=== PATIENT | female | born 1955 | race Hispanic/Latino ===

== ENCOUNTER 2019-10-07 08:22 | Day surgery (SDC) | payer OTHER ==
[2019-10-04 09:35] LABS: Absolute Lymphocytes (CBC) 2.7 K/uL (0.7-4.9); Basophils % 0.5 % (0-1.3); Hematocrit 37.4 % (36.0-45.0); Lymphocytes % 33.3 % (15.3-44.8); MPV 10.5 fL (7.6-11.3); RBC Red Blood Cell Count 4.09 M/uL (3.86-4.86)
[2019-10-04 09:51] LABS: Potassium 4.2 mmol/L (3.5-5.1)
[~2019-10-07 08:22] MED LIST: HEPARIN 5000 UNIT/ML 1 ML VIAL ONE; LIDOCAINE 1% MPF 30 ML VIAL ONE; NS 0.9% VIAL 20 ML ONE
--- OUTSIDE RECORDS SUMMARY | 2019-10-07 08:24 | XMS REPORT ---
:1955 Author Organization [facility] Address [address] [place] [address] Dr. Smith [address] [place] [id number] Care Team Providers Name Role Phone ARNAV RATLIFF Unavailable Unavailable Problems This patient has no known problems. Allergies, Adverse Reactions, Alerts This patient has no known allergies or adverse reactions. Medications This patient has no known medications. Encounters Start End Encounter Admission Attending Care Care Encounter Date/Time Date/Time Type Type Clinicians Facility Department ID 2019-08-01 2019-08-01 Outpatient [id number] 08:26:00 08:26:00 Results Test Description Test Time Test Comments Text Results Atomic Results Result Comments TISSUE EXAM 2019-08-31 14:46:00 Surgical Pathology Report Case: [id number] Authorizing Provider: Arnav Ratliff MD Collected: 08/21/2019 1712 Ordering Location: [facility] Received: 08/22/2019 1041 SERVICES Pathologist: Khris Morales MD Specimens: A) - Kidney, Left B) - Lymph Node, Retroperitoneal lymph nodes A. 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 LYMPH NODE, RETROPERITONEAL, DISSECTION: - ELEVEN LYMPH NODES, NEGATIVE FOR METASTATIC CARCINOMA (0/11) Signing Pathologist Direct Phone Line: [phone] signed by Khris Morales MD on 08/31/2019 at 2:46 PMA. By immunohistochemistry, the tumor cells are patchily positive for CK7, CD10 and AMACR. The findings are not entirely specific. With the morphology, the overall features are most compatible with clear cell type. The majority of the tumor cells are nuclear grade 2, while very focally the tumor cells show features of nuclear grade 3. KIDNEY: Nephrectomy (Kidney Res - All Specimens)SPECIMEN Procedure: Radical nephrectomy Specimen Laterality: Left TUMOR Tumor Site: Upper pole Tumor Site: Middle Histologic Type: Clear cell renal cell carcinoma Histologic Grade (WHO / ISUP Grade): G3: Nucleoli conspicuous and eosinophilic at 100x magnification Tumor Size: Greatest dimension in Centimeters (cm): 9.1 Centimeters (cm) Additional Dimension in Centimeters (cm): 8.3 Centimeters (cm) Additional Dimension in Centimeters (cm): 8 Centimeters (cm) Tumor Focality: Unifocal Tumor Extent: Tumor Extension: Tumor limited to kidney Accessory Findings: Sarcomatoid Features: Not identified Rhabdoid Features: Not identified Tumor Necrosis: Not identified Lymphovascular Invasion: Not identified MARGINS Margins: Uninvolved by invasive carcinoma LYMPH NODES Number of Lymph Nodes Involved: 0 Number of Lymph Nodes Examined: 11 PATHOLOGIC STAGE CLASSIFICATION (pTNM, AJCC 8th Edition) TNM Descriptors: Not applicable Primary Tumor (pT): pT2a Regional Lymph Nodes (pN): pN0 ADDITIONAL FINDINGS Pathologic Findings in Nonneoplastic Kidney: None identified [id number] X 2, 06381, 73187 X 2Left renal mass A. Kidney, left. B. Retroperitoneal lymph nodeA. Received fresh labeled with the patient's name, accession number and "kidney, left" is a 619 gm, 18 x 8.5 x 8.5 cm radical nephrectomy with a moderate amount of attached perinephric fat. An adrenal gland is not present. The kidney measures 14 x 8 x 8.3 cm. There is an attached unremarkable ureter measuring 10.5 cm in length and 0.3 cm in diameter.The kidney is opened to reveal a well-circumscribed, heterogenous, huddleston-yellow, johnson, partially hemorrhagic and necrotic mass in the upper to mid pole measuring 9.1 x 8.3 x 8 cm. The mass abuts the kidney capsule and vein, but it does not invade through either one. The mass abuts the renal sinuS, but it does not invade through it. The remaining parenchyma is red-brown and smooth. The corticomedullary junction is well demarcated. Lymph nodes are not present in the hilum. Assistant Branch Operations Manager sections are submitted.Ink code: Blue-outer surface of kidneySection code:A1, ureter and vascular margins, en faceA2-A3, mass to kidney capsule and perinephric fatA4, mass to veinA5-A7, mass to renal sinusA8, mass to hilumA9, hvac sales representative of mass with scarred area, mid lobeA10, mass to uninvolved parenchyma, mid nzekB72-U60, uninvolved parenchyma B. Received fresh labeled with the patient's name, accession number and "retroperitoneal lymph nodes" is a 3.5 x 2.5 x 1.5 cm aggregate of multiple irregular, johnson-yellow, adipose tissue fragments. The specimen is sectioned to reveal multiple pink lymph nodes ranging from 0.2-0.9 cm. The specimen is entirely submitted.Section code:B1-B4, one possible lymph node in each cassetteB5, five possible intact lymph nodesB6-B8, remainder of specimenCG/ewThe interpretation of this case included the use of immunohistochemistry or special stains.Please see the immunohistochemistry results in the COMMENT section. Control Slides Examined: In-house known positive controls were evaluated along with the test tissue. These control slides run alongside of the patients sample show appropriate staining. Internal positive and negative controls when available are evaluated Immunohistochemistry technical testing was performed at [facility], Pathology Laboratory where it was developed and its performance characteristics were determined. It has not been cleared or approved by the U.S. Food and Drug Administration. The FDA has determined that such clearance or approval is not necessary. The test is used for clinical purposes. It should not be regarded as investigational or for research. This laboratory is certified under the Clinical Laboratory Improvement Amendments of 1988 (CLIA-88) as qualified to perform high complexity clinical laboratory testing. HEMOGLOBIN AND HEMATOCRIT 2019-08-23 13:13:00 Test Item Value Reference Range Comments HEMOGLOBIN (BEAKER) (test bdsc=405) 10.6 GM/DL 11.2-15.7 HEMATOCRIT (BEAKER) (test fngm=542) 33.8 % 34.1-44.9 BASIC METABOLIC [id number] 07:54:00 Test Item Value Reference Range Comments SODIUM (BEAKER) (test 134 meq/L 136-145 tglb=740) POTASSIUM (BEAKER) (test 4.4 meq/L 3.5-5.1 ewvy=335) CHLORIDE (BEAKER) (test 106 meq/L 98-107 zhno=105) CO2 (BEAKER) (test 23 meq/L 22-29 ouhn=900) BLOOD UREA NITROGEN 16 mg/dL 7-21 (BEAKER) (test wuxx=728) CREATININE (BEAKER) (test 0.90 mg/dL 0.57-1.25 cntv=547) GLUCOSE RANDOM (BEAKER) 100 mg/dL 70-105 (test utbj=514) CALCIUM (BEAKER) (test 8.3 mg/dL 8.4-10.2 squh=295) EGFR (BEAKER) (test 63 mL/min/1.73 sq m ESTIMATED GFR IS NOT lyre=7684) ACCURATE CREATININE CLEARANCE IN PREDICTING GLOMERULAR FILTRATION RATE. ESTIMATED GFR IS NOT APPLICABLE FOR DIALYSIS PATIENTS. HEMOGLOBIN AND [id number] 07:37:00 Test Item Value Reference Range Comments HEMOGLOBIN (BEAKER) (test rzcf=352) 10.6 GM/DL 11.2-15.7 HEMATOCRIT (BEAKER) (test qcaw=812) 33.5 % 34.1-44.9 BASIC METABOLIC [id number] 05:55:00 Test Item Value Reference Range Comments SODIUM (BEAKER) (test 138 meq/L 136-145 kxoh=303) POTASSIUM (BEAKER) (test 4.3 meq/L 3.5-5.1 ipqp=219) CHLORIDE (BEAKER) (test 109 meq/L 98-107 tlly=898) CO2 (BEAKER) (test 25 meq/L 22-29 rape=182) BLOOD UREA NITROGEN 14 mg/dL 7-21 (BEAKER) (test jtkv=032) CREATININE (BEAKER) (test 0.84 mg/dL 0.57-1.25 atbc=803) GLUCOSE RANDOM (BEAKER) 113 mg/dL 70-105 (test wxwc=614) CALCIUM (BEAKER) (test 8.8 mg/dL 8.4-10.2 virc=755) EGFR (BEAKER) (test 68 mL/min/1.73 sq m ESTIMATED GFR IS NOT hgrg=8085) ACCURATE CREATININE CLEARANCE IN PREDICTING GLOMERULAR FILTRATION RATE. ESTIMATED GFR IS NOT APPLICABLE FOR DIALYSIS PATIENTS. HEMOGLOBIN AND [id number] 05:36:00 Test Item Value Reference Range Comments HEMOGLOBIN (BEAKER) (test cqbd=386) 11.6 GM/DL 11.2-15.7 HEMATOCRIT (BEAKER) (test uxto=638) 36.6 % 34.1-44.9 BASIC METABOLIC [id number] 19:19:00 Test Item Value Reference Range Comments SODIUM (BEAKER) (test 140 meq/L 136-145 wjax=725) POTASSIUM (BEAKER) (test 4.0 meq/L 3.5-5.1 Specimen slightly nuit=146) hemolyzed CHLORIDE (BEAKER) (test 109 meq/L 98-107 wskk=177) CO2 (BEAKER) (test 25 meq/L 22-29 dwtl=866) BLOOD UREA NITROGEN 13 mg/dL 7-21 (BEAKER) (test moxc=423) CREATININE (BEAKER) (test 0.82 mg/dL 0.57-1.25 Specimen slightly dukt=984) hemolyzed GLUCOSE RANDOM (BEAKER) 164 mg/dL 70-105 (test fnme=955) CALCIUM (BEAKER) (test 9.1 mg/dL 8.4-10.2 lmuj=233) EGFR (BEAKER) (test 70 mL/min/1.73 sq m ESTIMATED GFR IS NOT dadp=2044) ACCURATE CREATININE CLEARANCE IN PREDICTING GLOMERULAR FILTRATION RATE. ESTIMATED GFR IS NOT APPLICABLE FOR DIALYSIS PATIENTS. HEMOGLOBIN AND [id number] 18:50:00 Test Item Value Reference Range Comments HEMOGLOBIN (BEAKER) (test ptgi=432) 12.8 GM/DL 11.2-15.7 HEMATOCRIT (BEAKER) (test xihe=975) 39.8 % 34.1-44.9 URINE [id number] 09:25:00 Test Item Value Reference Range Comments CULTURE (BEAKER) (test 80-89,000 col/mL skin david pbbu=6115) PROTHROMBIN TIME/[id number] 17:15:00 Test Item Value Reference Range Comments PROTIME (BEAKER) (test akyb=384) 13.0 seconds 11.9-14.2 INR (BEAKER) (test lkwm=888) 1.0 <=5.9 Effective 02/13/2019: PT Reference Range ChangeNew: 11.9-14.2 Previous: 11.7- 14.7RECOMMENDED COUMADIN/WARFARIN INR THERAPY RANGESSTANDARD DOSE: 2.0-3.0 Includes: PROPHYLAXIS for venous thrombosis, systemic embolization; TREATMENT for venous thrombosis and/or pulmonary embolus.HIGH RISK: Target INR is2.5-3.5 for patients wiht mechanical heart valves.[id number] 17:15:00 Test Item Value Reference Range Comments PARTIAL THROMBOPLASTIN TIME (BEAKER) (test 27.7 seconds 22.5-36.0 cqui=068) BASIC METABOLIC [id number] 17:04:00 Test Item Value Reference Range Comments SODIUM (BEAKER) (test 139 meq/L 136-145 lzir=790) POTASSIUM (BEAKER) (test 3.8 meq/L 3.5-5.1 askt=981) CHLORIDE (BEAKER) (test 105 meq/L 98-107 cywr=875) CO2 (BEAKER) (test 30 meq/L 22-29 jkiw=365) BLOOD UREA NITROGEN 12 mg/dL 7-21 (BEAKER) (test tatr=396) CREATININE (BEAKER) (test 0.69 mg/dL 0.57-1.25 dhyc=371) GLUCOSE RANDOM (BEAKER) 96 mg/dL 70-105 (test jvhw=913) CALCIUM (BEAKER) (test 10.0 mg/dL 8.4-10.2 vhuy=824) EGFR (BEAKER) (test 85 mL/min/1.73 sq m ESTIMATED GFR IS NOT gaen=8480) ACCURATE CREATININE CLEARANCE IN PREDICTING GLOMERULAR FILTRATION RATE. ESTIMATED GFR IS NOT APPLICABLE FOR DIALYSIS PATIENTS. URINALYSIS W/ [id number] 16:35:00 Test Item Value Reference Range Comments COLOR (BEAKER) (test ettu=954) Yellow CLARITY (BEAKER) (test tayn=902) Clear SPECIFIC GRAVITY UA (BEAKER) (test rjwu=102) 1.027 1.001-1.035 PH UA (BEAKER) (test uazx=241) 7.0 5.0-8.0 PROTEIN UA (BEAKER) (test kpdi=499) 10 mg/dL Negative GLUCOSE UA (BEAKER) (test ehzg=176) Negative Negative KETONES UA (BEAKER) (test ymeo=614) Trace Negative BILIRUBIN UA (BEAKER) (test qfmv=763) Negative Negative BLOOD UA (BEAKER) (test ohtt=667) Negative Negative NITRITE UA (BEAKER) (test rukr=542) Negative Negative LEUKOCYTE ESTERASE UA (BEAKER) (test uufx=686) Negative Negative UROBILINOGEN UA (BEAKER) (test ewuj=615) 6.0 mg/dL 0.2-1.0 RBC UA (BEAKER) (test dtyg=059) 1 /HPF WBC UA (BEAKER) (test pwat=452) 1 /HPF BACTERIA (BEAKER) (test kmbe=675) Rare MUCUS (BEAKER) (test eddm=2071) Rare SQUAMOUS EPITHELIAL (BEAKER) (test wrfz=539) 2 /HPF CALCIUM OXALATE CRYSTALS (BEAKER) (test yrqa=089) Many SOURCE(BEAKER) (test umbe=9241) CBC W/PLT COUNT & AUTO [id number] 16:33:00 Test Item Value Reference Range Comments WHITE BLOOD CELL COUNT (BEAKER) (test kolg=723) 10.0 K/ L 3.5-10.5 RED BLOOD CELL COUNT (BEAKER) (test pjyk=230) 4.18 M/ L 3.93-5.22 HEMOGLOBIN (BEAKER) (test jrkx=270) 12.8 GM/DL 11.2-15.7 HEMATOCRIT (BEAKER) (test vkpz=802) 39.3 % 34.1-44.9 MEAN CORPUSCULAR VOLUME (BEAKER) (test wzxu=473) 94.0 fL 79.4-94.8 MEAN CORPUSCULAR HEMOGLOBIN (BEAKER) (test 30.6 pg 25.6-32.2 qgno=729) MEAN CORPUSCULAR HEMOGLOBIN CONC (BEAKER) (test 32.6 GM/DL 32.2-35.5 rwbm=049) RED CELL DISTRIBUTION WIDTH (BEAKER) (test 12.7 % 11.7-14.4 saze=789) PLATELET COUNT (BEAKER) (test moux=530) 224 K/CU MM 150-450 MEAN PLATELET VOLUME (BEAKER) (test tdcm=389) 11.5 fL 9.4-12.3 NUCLEATED RED BLOOD CELLS (BEAKER) (test 0 /100 WBC 0-0 fkdm=189) NEUTROPHILS RELATIVE PERCENT (BEAKER) (test 52 % gpzs=010) LYMPHOCYTES RELATIVE PERCENT (BEAKER) (test 36 % wtxq=377) MONOCYTES RELATIVE PERCENT (BEAKER) (test 9 % yvng=027) EOSINOPHILS RELATIVE PERCENT (BEAKER) (test 3 % auky=574) BASOPHILS RELATIVE PERCENT (BEAKER) (test 1 % tyal=486) NEUTROPHILS ABSOLUTE COUNT (BEAKER) (test 5.20 K/ L 1.56-6.13 antt=731) LYMPHOCYTES ABSOLUTE COUNT (BEAKER) (test 3.56 K/ L 1.18-3.74 gkeb=482) MONOCYTES ABSOLUTE COUNT (BEAKER) (test 0.91 K/ L 0.24-0.36 aomh=076) EOSINOPHILS ABSOLUTE COUNT (BEAKER) (test 0.26 K/ L 0.04-0.36 vycz=297) BASOPHILS ABSOLUTE COUNT (BEAKER) (test 0.05 K/ L 0.01-0.08 ddga=517) IMMATURE GRANULOCYTES-RELATIVE PERCENT (BEAKER) 0 % 0-1 (test wjvk=1869) BREAST ULTRASOUND CORE BIOPSY [id number] 16:30:01- BREAST ULTRASOUND CORE BIOPSY RIGHTULTRASOUND GUIDED BIOPSY RIGHT BREAST WITH MARKING DEVICE INSERTED AND POST DIGITAL MAMMOGRAPHIC AND ULTRASOUND IMAGIN06/19/2019CLINICAL: The 3.9 cm mass in the right breast at 1-2 o'clock, 1 cm from the nipple is highly suggestive of malignancy. An ultrasound-guided biopsy is recommended.The right axillary lymph node with a thickened cortex is suspicious for malignancy. An ultrasound-guided biopsy is recommended. PATIENT CONSENT: The procedure along with risks, benefits, alternatives, anesthesia, plan and tissue marker placement were discussed with the patient. Following this, signed, witnessed informed concent was obtained. Comparison is made to exam dated 05/21/2019 ultrasound - [facility]-. An ultrasound guided biopsy using real -time ultrasound was performed for the concerning palpable spiculated irregular shaped mass located in the right breast at 1 o'clock, anterior depth, 1 cm from the nipple. This was described on the previous mammography and ultrasound reports. The skin was prepped in the usual manner. Local anesthetic was administered to the access site. A small incision was made in the breast. The abnormality was approached from the lateral aspect. A 14 gauge biopsy needle was placed adjacent to the abnormality through an introducer device under ultrasound guidance. Once the needle was documented to be in the correct location, three specimens were obtained using a BARD biopsy device. A ribbon clip was inserted into the biopsy cavity. Post procedure digital mammographic and ultrasound imaging was obtained. The specimens were sent to the laboratory for pathological analysis. IMPRESSION: ULTRASOUND GUIDED BIOPSYMALIGNANT Ultrasound guided biopsy of the mass in the right breast at 1 o'clock, anterior depth 1 cmfrom the nipple, was successful. PATHOLOGY INDICATES:Malignant invasive ductal carcinoma (ID) grade2. RECOMMENDATION:Pathology results are concordant with imaging findings. A surgical consult, a breast MRI, and a chemo oncology consultation are recommended. Sandra Jimenez M.D. cc/:06/25/2019 16:30:01 Entry: - 06/26/2019 08:21:12Imaging Technologist: Charlee Webber, [facility]-RGDIAG MAMM RIGHT CAD [id number] 09:46: 33 - DIAG MAMM RIGHT CAD DIGITALUNILATERAL RIGHT DIGITAL DIAGNOSTIC MAMMOGRAM WITH CAD - RIGHT BREAST POST-PROCEDURE IMAGING FOR MARKER PLACEMENT: 2018CLINICAL: Post clip placement. Current mammographic images were evaluated by either a [employer]u or an DGIT version 7.2 computer aided detection system. Comparison is made to exams dated 06/19/2019 ultrasound, 06/19/2019 ultrasound biopsy, 06/19/2019 ultrasound biopsy, 05/21/2019 ultrasound, and 05/21/2019 mammogram - [facility]-. There are scattered fibroglandular tissues in the right breast. There is a ribbon marker clip in the appropriate position in the right breast at 1 o'clock, anterior depth, 1 cm from the nipple. This marker clip placement is at biopsy site. There also is a heart marker clip in the appropriate position in the right axilla. This marker clip placement is at biopsy site. IMPRESSION: POST PROCEDURE IMAGING FOR MARKER PLACEMENTThere was successful marking clip placement in the right breast at 1 o' clock, anterior depth. There was successful marking clip placement in the right axilla. Sandra Jimenez M.D. cc/:06/19/2019 09:46:33 Screen Printing Machine Operator: Dionne ESCALANTE, [facility]-RGMammogram BI-RADS: Post-procedure mammogram for marker placementBREAST ULTRASOUND [id number] 15:44:10 - DIAG MAMM BILATERAL SUSAN CAD DIGITALBILATERAL DIGITAL DIAGNOSTIC MAMMOGRAM 3D/2D WITH CAD: 05/21/2019CLINICAL: Palpable Lump and nipple abnormality right breast. Digital breast tomosynthesis was performed in addition to routine CC and MLO views. Current mammographic images were evaluated by either a [employer] M-Vu or an Achie[employer]D version 7.2 computer aided detection system. No prior exams were available for comparison. There are scattered fibroglandular tissues in both breasts. An approximately 4.6 x 3.7 x 2.7 cm oval high density mass with spiculated margin is noted in the subareolar region of theright breast. This mass abuts the skin which is thickened and results in nipple and skin retraction. Finding calcifications are noted within the mass. No other suspicious mass, architectural distortion, malignant type calcification, or lymph node abnormality detected. INCOMPLETE ASSESSMENT: ADDITIONAL IMAGING EVALUATION RECOMMENDEDFurther evaluation is pending; breast ultrasound to be performed today. - BREAST ULTRASOUND BILATERALULTRASOUND OF BOTH BREASTS AND BOTH AXILLA: 05/21/2019No prior exams were available for comparison. Real-time ultrasound of both breasts and both axilla was performed. A 3.3 x 3.9 x 2.5 cm hypoechoic mass with angular and spiculated margin is noted in the right breast at 1-2 o'clock, 1 cm from the nipple in the area of palpable concern. This mass abuts the skin of the breast, areola and nipple which is thickened, and demonstrates clinical erythema and scaling. Increased vascularity affects the mass.A right axillary lymph node with a thickened cortex measuring upto 5 mm is noted. No other abnormalities were seen sonographically in either breast or either axilla. IMPRESSION: HIGHLY SUGGESTIVE OF MALIGNANCY - FOLLOW-UP RECOMMENDEDThe 3.9 cm mass in the right breast at 1-2 o'clock, 1 cm from the nipple is highly suggestive of malignancy. An ultrasound-guided biopsy is recommended.The right axillary lymph node with a thickened cortex is suspicious for malignancy. An ultrasound-guided biopsy is recommended.Sandra Jimenez M.D. cc/:05/21/2019 15:44:10 Entry: cc - 05/22/2019 08:27:22Imaging Technologist: Kayden ESCALANTE, [facility]- RGletter sent: BIRADS 4/5 Biopsy Mammogram BI-RADS: 0 Indeterminate Ultrasound BI-RADS: 5 Highly suggestive of malignancyDIAG MAMM BILATERAL SUSAN CAD [id number] 15:44:10 - DIAG MAMM BILATERAL SUSAN CAD DIGITALBILATERAL DIGITAL DIAGNOSTIC MAMMOGRAM 3D/2D WITH CAD: 05/21/2019CLINICAL: Palpable Lump and nipple abnormality right breast. Digital breast tomosynthesis was performed in addition to routine CC and MLO views. Current mammographic images were evaluated by either a [employer] or an DGIT version 7.2 computer aided detection system. No prior exams were available for comparison. There are scattered fibroglandular tissues in both breasts. An approximately 4.6 x 3.7 x 2.7 cm oval high density mass with spiculated margin is noted in the subareolar region of theright breast. This mass abuts the skin which is thickened and results in nipple and skin retraction. Finding calcifications are noted within the mass. No other suspicious mass, architectural distortion, malignant type calcification, or lymph node abnormality detected. INCOMPLETE ASSESSMENT: ADDITIONAL IMAGING EVALUATION RECOMMENDEDFurther evaluation is pending; breast ultrasound to be performed today. - BREAST ULTRASOUND BILATERALULTRASOUND OF BOTH BREASTS AND BOTH AXILLA: 05/21/2019No prior exams were available for comparison. Real-time ultrasound of both breasts and both axilla was performed. A 3.3 x 3.9 x 2.5 cm hypoechoic mass with angular and spiculated margin is noted in the right breast at 1-2 o'clock, 1 cm from the nipple in the area of palpable concern. This mass abuts the skin of the breast, areola and nipple which is thickened, and demonstrates clinical erythema and scaling. Increased vascularity affects the mass.A right axillary lymph node with a thickened cortex measuring upto 5 mm is noted. No other abnormalities were seen sonographically in either breast or either axilla. IMPRESSION: HIGHLY SUGGESTIVE OF MALIGNANCY - FOLLOW-UP RECOMMENDEDThe 3.9 cm mass in the right breast at 1-2 o'clock, 1 cm from the nipple is highly suggestive of malignancy. An ultrasound-guided biopsy is recommended.The right axillary lymph node with a thickened cortex is suspicious for malignancy. An ultrasound-guided biopsy is recommended.Sandra Jimenez M.D. cc/:05/21/2019 15:44:10 Entry: cc - 05/22/2019 08:27:22Imaging Technologist: Kayden ESCALANTE, [facility]- letter sent: BIRADS 4/5 Biopsy Mammogram BI-RADS: 0 Indeterminate Ultrasound BI-RADS: 5 Highly suggestive of malignancy
[2019-10-07] MEDS ORDERED: CEFAZOLIN/SWI 1gm 1 GM/10 ML SYR ONE (08:41)
[2019-10-07] MEDS ORDERED: Ringers Lactate 1,000 ML IV ONE (08:41)
[2019-10-07] MEDS ORDERED: FENTANYL CITR 100 MCG/2 ML ONE (09:26)
[2019-10-07] MEDS ORDERED: propofoL 200 MG/20 ML VIAL IV ONE (09:26)
[2019-10-07] MEDS ORDERED: LIDOCAINE 2% MPF 5 ML VIAL ONE (09:27)
[2019-10-07 10:11] VITALS: O2SAT 100
--- NOTE | 2019-10-07 10:19 | RAD REPORT ---
EXAM DESCRIPTION: RAD - Chest Single View - 10/07/2019 10:07 am CLINICAL HISTORY: POST PORT A CATH INSERTION Chest pain. COMPARISON: No comparisons FINDINGS: Portable technique limits examination quality. Left-sided venous catheter has been placed with tip in the SVC. No pneumothorax. The heart is upper l imit of normal size. No displaced fractures. IMPRESSION: No postprocedure pneumothorax.
[2019-10-07] MEDS ORDERED: MORPHINE 4 MG/ML SYR ONE (10:21)
[2019-10-07] MEDS ORDERED: ONDANSETRON 4 MG/2 ML VIAL ONE (10:21)
[2019-10-07] MEDS ORDERED: HYDROCODONE/APAP 7.5/325 MG TAB ONE (10:56)
--- NOTE | 2019-10-07 12:53 | OP ---
Date of Procedure: 10/07/2019 Surgeon: Beto Birch MD Preoperative Diagnosis: Right breast cancer. Postoperative Diagnosis: Right breast cancer. Procedure: Placement of left IJ Port-A-Cath and interpretation of intraoperative fluoroscopy. Estimated Blood Loss: Minimal. Specimens: None. Findings: Normal anatomy. Anesthesia: General. Complications: None. Disposition: Patient tolerated the procedure in stable condition, taken to Recovery in good general condition. Procedure In Detail: Patient was brought to the OR and placed in supine position. General anesthesi a was begun. Patient was prepped and draped in usual sterile fashion. Lidocaine 1% was infiltrated locally. 18-gauge needle was used to access the left IJ vein. Guidewire was passed. Position was c onfirmed with fluoroscopy. A 3 cm counter incision was made on the left anterior chest below the cla vicle. Subcutaneous tissue was divided. Pocket was created. Tunneling device was used to tunnel th e catheter between the 2 wounds. Seldinger technique was used. Tip of the catheter was placed in th e SVC under fluoroscopy, cut to appropriate size and attached to the Port-A-Cath device. Port-A-Cath device was attached to the subcutaneous tissue with 3-0 Vicryl and then the Port-A-Cath device flush ed with heparin and packed with heparin with good blood flow return. Then, subsequent 3-0 chromic wa s used for subcutaneous tissue and closed the skin. Sterile dressing was applied. Patient was awakened and taken to Recovery in go od general condition. /MODL Voice ID: [id number] Report ID: [id number]
--- NOTE | 2019-10-07 13:17 | DS ---
Patient will have a chest x-ray. If okay, patient will be discharged to home. Disposition: Home. Condition: Stable. Discharge Instructions: Resume home medications and diet. Activity as tolerated. No heavy lifting. Remove outer dressing in 2 days. Shower. Keep wound clean and dry. Follow up in my office in 2 w eeks. Call for appointment. Follow up with Dr. Blake[facility]. Call for appointment . Tylenol No. 3, one tablet p.o. q.4 p.r.n. pain. /MODL Voice ID: [id number] Report ID: [id number]
[2019-10-07 14:09] VITALS: TEMP 97.8
[2019-10-07 14:12] VITALS: BP 123/62
--- NOTE | 2019-10-07 14:28 | RAD REPORT ---
EXAM DESCRIPTION: RAD - Fluoroscopy <1 Hour - 10/07/2019 9:48 am CLINICAL HISTORY: Venous catheter insertion. PORT-A-CATH PLACEMENT COMPARISON: No comparisons FINDINGS: Fluoroscopic imaging is submitted from placement of a venous catheter. Details of the pro cedure not available. Fluoroscopy time: 0.5 minutes
== END 2019-10-07 11:45 | disposition home or self-care (01) ==
LOC: OR 08:22
PROVIDERS: ATTEND Surgery
PROC: 0JH60WZ Insertion of Totally Implantable Vascular Access Device into Chest Subcutaneous Tissue and Fascia, Open Approach (ICD-10-PCS; principal; 2019-10-07 09:30)
DX: C50.911 Malignant neoplasm of unspecified site of right female breast (principal); Z85.528 Personal history of other malignant neoplasm of kidney; Z90.5 Acquired absence of kidney
CPT/HCPCS: 36561; 85025; 80048; 36415; 71045; J2704; J1644 ×2; J3010; J0690; J7120; J2405; C1788; 76000

== ENCOUNTER 2020-01-09 19:27 | Inpatient (IN) | payer OTHER ==
--- OUTSIDE RECORDS SUMMARY | 2020-01-09 20:53 | XMS REPORT ---
:1955 Author Organization [facility] t Address [address] [place] [address] [address]. [address] [place] [address] Care Team Providers Name Role Phone TELMA RATLIFF Unavailable Unavailable Problems This patient has [...] Comments TISSUE EXAM 2019-08-31 14:46:00 Surgical Pathology Re port Case: [id number] Authorizing Provider: Alfredito Ratliff MD Collected: 1712 Ordering Location: [facility] Received: 1041 SERVICE S Pathologist: Thelma Morales MD Specimens: A) - Kidney, Le ft B) - Lymph Node, Retroperitoneal lymph nodes A. KIDNEY, LEFT, RADICAL NEPHRE CTOMY: - RENAL CELL CARCINOMA, CLEAR CELL T YPE, WHO/ISUP NUCLEAR GRADE 3 OF 4, 9.1 CM IN GREATEST DIMENSION, LIMITED TO KIDNEY (SEE COMMENT) - NEGATIVE FOR LYMPHOVASCULAR INVASION - SURGICAL RESECTION MARGINS, NEGATIVE FOR TUMOR - AJCC CLASSIFICATION (8TH EDITION) pT2a, N0, Mx (SEE SYNOPTIC REPORT)B. L YMPH NODE, RETROPERITONEAL, DISSECTION: - ELEVEN LYMPH NODES, NEGATIVE FOR METASTAT IC CARCINOMA (0/11) Signing Pathologist Courtney t Phone Line: [phone] s igned by Khris Morales MD on 08/31/2019 at 2:46 PM A. By immunohistochemistry, the tu mor cells are patchily positive for CK7, C D10 and AMACR. The findings are not entirely sp ecific. With the morphology, the overall feat ures are most compatible with clear cell t ype. The majority of the tumor cells are nuclear grade 2, while very focally the tumor cells show features of nuclear grade 3. KIDNEY: Nephrectomy (Kidney Res - All Specimens)SPECIMEN Procedu re: Radical nephrectomy Specimen Late rality: Left TUMOR Tumor Site: Upper pole Tumor Site: Middle Histologic Type: Clear cell renal cell carcinoma Histologic Grade (WHO / ISUP Grade): G3: Nucleoli cons picuous and eosinophilic at 100x magnifi cation Tumor Size: Greatest dimension in Rosa M timeters (cm): 9.1 Centimeters (cm) Additio nal Dimension in Centimeters (cm): 8.3 Rosa M timeters (cm) Additional Dimension in Cent imeters (cm): 8 Centimeters (cm) Tumor Foc ality: Unifocal Tumor Extent: Tumor Extension: Tumor limited to kidney Accesso ry Findings: Sarcomatoid Features: Not identified Rhabdoid Features: Not id entified Tumor Necrosis: Not identified Lymphovascular Invasion: Not identified MARGINS Margins: Uninvolved by invasive carci noma LYMPH NODES Number of Lymph Nodes Involv ed: 0 Number of Lymph Nodes Examined: 11 PATHOLOGIC STAGE CLASSIFICATION (pTNM, AJCC 8 th Edition) TNM Descriptors: Not applicab le Primary Tumor (pT): pT2a [facility] Ly mph Nodes (pN): pN0 ADDITIONAL FINDINGS Pa thologic Findings in Nonneoplastic Kidney: Non e identified [id number] X 2, 56419, 42493 X 2Left demarco l mass A. Kidney, left. B. Retroperitoneal lym ph nodeA. Received fresh labeled with the patie nt's name, accession number and "kidney, left" is a 619 gm, 18 x 8.5 x 8.5 cm radical nephrectomy w ith a moderate amount of attached perinephric fat. An adrenal gland is not present. The kidney shaheed ures 14 x 8 x 8.3 cm. There is an attached unremar kable ureter measuring 10.5 cm in length and 0.3 cm in diameter.The kidney is opene d to reveal a well-circumscribed, heteroge nous, huddleston-yellow, johnson, partially hemorrhagic a nd necrotic mass in the upper to mid pole measur ing 9.1 x 8.3 x 8 cm. The mass abuts the kidney ca psule and vein, but it does not invade through e ither one. The mass abuts the renal sinuS, but i t does not invade through it. The remaining pa renchyma is red-brown and smooth. The corticomedul lizzeth junction is well demarcated. Lymph nodes are not present in the hilum. Education Paraprofessional sectio ns are submitted.Ink code: Blue-outer surface of kidneySection code:A1, ureter and vascular margins, en faceA2-A3, mass to kidney ca psule and perinephric fatA4, mass to veinA5-A7, ma ss to renal sinusA8, mass to hilumA9, representat brielle of mass with scarred area, mid lobeA10, m ass to uninvolved parenchyma, mid pvnxF67-Z11, uninvolved parenchyma B. Received fresh labeled with the patient's name, accession nu mber and "retroperitoneal lymph nodes " is a 3.5 x 2.5 x 1.5 cm aggregate of multiple irregular, johnson-yellow, adipose tissue f ragments. The specimen is sectioned to rev eal multiple pink lymph nodes ranging from 0.2 -0.9 cm. The specimen is entirely submitted.Sectio n code:B1-B4, one possible lymph node in each cassetteB5, five possible intact lymph nodesB 6-B8, remainder of specimenCG/ewThe interpretat ion of this case included the use of immunohi stochemistry or special stains.Please see th e immunohistochemistry results in the COMMENT section. Control Slides Exam ined: In-house known positive controls were evalu ated along with the test tissue. These control slides run alongside of the patients sample show appropriate staining. Internal positive and negati ve controls when available are evaluated Immu nohistochemistry technical testing was perfor med at [facility] Patho logy Laboratory where it was developed and its per formance characteristics were determi pati. It has not been cleared or approved by the U .S. Food and Drug Administration. The FDA has determined that such clearance or approval is not necessary. The test is used for clinical purpose s. It should not be regarded as investigational or for research. This laboratory is certified unde r the Clinical Laboratory Improvement Amend ments of 1988 (CLIA-88) as qualified to pe rform high complexity clinical laboratory testing. HEMOGLOBIN AND HEMATOCRIT 2019-08-23 13:13:00 Test Item Value Reference Range Comments HEMOGLOBIN (BEAKER) (test code = 410) 10.6 GM/DL 11.2-15.7 HEMATOCRIT (BEAKER) (test code = 411) 33.8 % 34.1-44.9 BASIC METABOLIC [id number] 07:54:00 Test Item Value Reference Range Comments SODIUM (BEAKER) (test 134 meq/L 136-145 code = 381) POTASSIUM (BEAKER) (test 4.4 meq/L 3.5-5.1 code = 379) CHLORIDE (BEAKER) (test 106 meq/L 98-107 code = 382) CO2 (BEAKER) (test code = 23 meq/L 22-29 355) BLOOD UREA NITROGEN 16 mg/dL 7-21 (BEAKER) (test code = 354) CREATININE (BEAKER) (test 0.90 mg/dL 0.57-1.25 code = 358) GLUCOSE RANDOM (BEAKER) 100 mg/dL 70-105 (test code = 652) CALCIUM (BEAKER) (test 8.3 mg/dL 8.4-10.2 code = 697) EGFR (BEAKER) (test code 63 mL/min/1.73 sq m EST IMATED GFR IS NOT = 1092) ACCURATE CREA TININE CLEARANCE IN PRE DICTING GLOMERULAR FILTR ATION RATE. ESTIMATED GFR IS NOT APPLICABLE F OR DIALYSIS PATIENT S. HEMOGLOBIN AND [id number] 07:37:00 Test Item Value Reference Range Comments HEMOGLOBIN (BEAKER) (test code = 410) 10.6 GM/DL 11.2-15.7 HEMATOCRIT (BEAKER) (test code = 411) 33.5 % 34.1-44.9 BASIC METABOLIC [id number] 05:55:00 Test Item Value Reference Range Comments SODIUM (BEAKER) (test 138 meq/L 136-145 code = 381) POTASSIUM (BEAKER) (test 4.3 meq/L 3.5-5.1 code = 379) CHLORIDE (BEAKER) (test 109 meq/L 98-107 code = 382) CO2 (BEAKER) (test code = 25 meq/L 22-29 355) BLOOD UREA NITROGEN 14 mg/dL 7-21 (BEAKER) (test code = 354) CREATININE (BEAKER) (test 0.84 mg/dL 0.57-1.25 code = 358) GLUCOSE RANDOM (BEAKER) 113 mg/dL 70-105 (test code = 652) CALCIUM (BEAKER) (test 8.8 mg/dL 8.4-10.2 code = 697) EGFR (BEAKER) (test code 68 mL/min/1.73 sq m EST IMATED GFR IS NOT = 1092) ACCURATE CREA TININE CLEARANCE IN PRE DICTING GLOMERULAR FILTR ATION RATE. ESTIMATED GFR IS NOT APPLICABLE F OR DIALYSIS PATIENT S. HEMOGLOBIN AND [id number] 05:36:00 Test Item Value Reference Range Comments HEMOGLOBIN (BEAKER) (test code = 410) 11.6 GM/DL 11.2-15.7 HEMATOCRIT (BEAKER) (test code = 411) 36.6 % 34.1-44.9 BASIC METABOLIC [id number] 19:19:00 Test Item Value Reference Range Comments SODIUM (BEAKER) (test 140 meq/L 136-145 code = 381) POTASSIUM (BEAKER) (test 4.0 meq/L 3.5-5.1 Specime n slightly code = 379) hemolyzed CHLORIDE (BEAKER) (test 109 meq/L 98-107 code = 382) CO2 (BEAKER) (test code = 25 meq/L 22-29 355) BLOOD UREA NITROGEN 13 mg/dL 7-21 (BEAKER) (test code = 354) CREATININE (BEAKER) (test 0.82 mg/dL 0.57-1.25 Specim en slightly code = 358) hemolyzed GLUCOSE RANDOM (BEAKER) 164 mg/dL 70-105 (test code = 652) CALCIUM (BEAKER) (test 9.1 mg/dL 8.4-10.2 code = 697) EGFR (BEAKER) (test code 70 mL/min/1.73 sq m EST IMATED GFR IS NOT = 1092) ACCURATE CREA TININE CLEARANCE IN PRE DICTING GLOMERULAR FILTR ATION RATE. ESTIMATED GFR IS NOT APPLICABLE F OR DIALYSIS PATIENT S. HEMOGLOBIN AND [id number] 18:50:00 Test Item Value Reference Range Comments HEMOGLOBIN (BEAKER) (test code = 410) 12.8 GM/DL 11.2-15.7 HEMATOCRIT (BEAKER) (test code = 411) 39.8 % 34.1-44.9 URINE [id number] 09:25:00 Test Item Value Reference Range Comments CULTURE (BEAKER) (test code = 80-89,000 col/mL skin david 1095) PROTHROMBIN [id number] 17:15:00 Test Item Value Reference Range Comments PROTIME (BEAKER) (test code = 759) 13.0 seconds 11.9-14.2 INR (BEAKER) (test code = 370) 1.0 <=5.9 Effective 02/13/2019: PT Reference Range ChangeNew: 11.9-14.2 Previous: 11.7- 14.7RECOMMENDED COUMADIN/WARFARIN INR THERAPY RANGESSTANDARD DOSE: 2.0-3.0 Includes: PROPHYLAXIS for venous thrombosis, systemic embolization; TREATMENT for venous thrombosis and/or pulmonary embolus.HIGH RISK: Target INR is2.5-3.5 for patients wiht mechanical heart valves.[id number] 17:15:00 Test Item Value Reference Range Comments PARTIAL THROMBOPLASTIN TIME (BEAKER) (test code 27.7 seconds 22.5-36.0 = 760) BASIC METABOLIC [id number] 17:04:00 Test Item Value Reference Range Comments SODIUM (BEAKER) (test 139 meq/L 136-145 code = 381) POTASSIUM (BEAKER) (test 3.8 meq/L 3.5-5.1 code = 379) CHLORIDE (BEAKER) (test 105 meq/L 98-107 code = 382) CO2 (BEAKER) (test code = 30 meq/L 22-29 355) BLOOD UREA NITROGEN 12 mg/dL 7-21 (BEAKER) (test code = 354) CREATININE (BEAKER) (test 0.69 mg/dL 0.57-1.25 code = 358) GLUCOSE RANDOM (BEAKER) 96 mg/dL 70-105 (test code = 652) CALCIUM (BEAKER) (test 10.0 mg/dL 8.4-10.2 code = 697) EGFR (BEAKER) (test code 85 mL/min/1.73 sq m EST IMATED GFR IS NOT = 1092) ACCURATE CREA TININE CLEARANCE IN PRE DICTING GLOMERULAR FILTR ATION RATE. ESTIMATED GFR IS NOT APPLICABLE F OR DIALYSIS PATIENT S. URINALYSIS W/ [id number] 16:35:00 Test Item Value Reference Range Comments COLOR (BEAKER) (test code = 470) Yellow CLARITY (BEAKER) (test code = 469) Clear SPECIFIC GRAVITY UA (BEAKER) (test code = 468) 1.027 1 .001-1.035 PH UA (BEAKER) (test code = 467) 7.0 5.0-8.0 PROTEIN UA (BEAKER) (test code = 464) 10 mg/dL Negative GLUCOSE UA (BEAKER) (test code = 365) Negative Negative KETONES UA (BEAKER) (test code = 371) Trace Negative BILIRUBIN UA (BEAKER) (test code = 462) Negative Negative BLOOD UA (BEAKER) (test code = 461) Negative Negative NITRITE UA (BEAKER) (test code = 465) Negative Negative LEUKOCYTE ESTERASE UA (BEAKER) (test code = 466) Negative Negative UROBILINOGEN UA (BEAKER) (test code = 463) 6.0 mg/dL 0.2-1 .0 RBC UA (BEAKER) (test code = 519) 1 /HPF WBC UA (BEAKER) (test code = 520) 1 /HPF BACTERIA (BEAKER) (test code = 517) Rare MUCUS (BEAKER) (test code = 1574) Rare SQUAMOUS EPITHELIAL (BEAKER) (test code = 516) 2 /HPF CALCIUM OXALATE CRYSTALS (BEAKER) (test code = Many 518) SOURCE(BEAKER) (test code = 6547) CBC W/PLT COUNT & AUTO [id number] 16:33:00 Test Item Value Reference Range Comments WHITE BLOOD CELL COUNT (BEAKER) (test code = 10.0 K/ L 3.5 -10.5 775) RED BLOOD CELL COUNT (BEAKER) (test code = 761) 4.18 M/ L 3.93-5.22 HEMOGLOBIN (BEAKER) (test code = 410) 12.8 GM/DL 11.2-15.7 HEMATOCRIT (BEAKER) (test code = 411) 39.3 % 34.1-44.9 MEAN CORPUSCULAR VOLUME (BEAKER) (test code = 94.0 fL 79 .4-94.8 753) MEAN CORPUSCULAR HEMOGLOBIN (BEAKER) (test code 30.6 pg 25.6-32.2 = 751) MEAN CORPUSCULAR HEMOGLOBIN CONC (BEAKER) (test 32.6 GM/DL 32.2-35.5 code = 752) RED CELL DISTRIBUTION WIDTH (BEAKER) (test code 12.7 % 11.7-14.4 = 412) PLATELET COUNT (BEAKER) (test code = 756) 224 K/CU MM 150-45 0 MEAN PLATELET VOLUME (BEAKER) (test code = 754) 11.5 fL 9.4-12.3 NUCLEATED RED BLOOD CELLS (BEAKER) (test code = 0 /100 WBC 0-0 413) NEUTROPHILS RELATIVE PERCENT (BEAKER) (test code 52 % = 429) LYMPHOCYTES RELATIVE PERCENT (BEAKER) (test code 36 % = 430) MONOCYTES RELATIVE PERCENT (BEAKER) (test code = 9 % 431) EOSINOPHILS RELATIVE PERCENT (BEAKER) (test code 3 % = 432) BASOPHILS RELATIVE PERCENT (BEAKER) (test code = 1 % 437) NEUTROPHILS ABSOLUTE COUNT (BEAKER) (test code = 5.20 K/ L 1.56-6.13 670) LYMPHOCYTES ABSOLUTE COUNT (BEAKER) (test code = 3.56 K/ L 1.18-3.74 414) MONOCYTES ABSOLUTE COUNT (BEAKER) (test code = 0.91 K/ L 0 .24-0.36 415) EOSINOPHILS ABSOLUTE COUNT (BEAKER) (test code = 0.26 K/ L 0.04-0.36 416) BASOPHILS ABSOLUTE COUNT (BEAKER) (test code = 0.05 K/ L 0 .01-0.08 417) IMMATURE GRANULOCYTES-RELATIVE PERCENT (BEAKER) 0 % 0-1 (test code = 2801) BREAST ULTRASOUND CORE BIOPSY [id number] 16:30:01- BREAST ULTRASOUND CORE BIOPSY RIGHTULTRASOUND GUIDED [...] to exam dated 05/21/2019 ultrasound - [facility]-. An ultrasound guided biopsy using real-time ul trasound was performed for the concerning palpable spiculated [...] breast at 1 o'clock, anterior depth 1 cm from the nipple, was successful. PATHOLOGY INDICATES:Malignant invasive ductal carcinoma (ID) grade2. RECOMMENDATION:Pathology results are concordant with imaging findings. A surgical consult, a breast MRI, and a chemo oncology consultation are recommended. Sandra Jimenez M.D. cc/:06/25/2019 16:30:01 Entry: - 06/26/2019 08:21:12Imaging Technologist: Charlee Raygoza , [facility]-RGDIAG MAMM RIGHT CAD [id number] 09:46:33 - DIAG MAMM RIGHT CAD DIGITALUNILATERAL RIGHT DIGITAL DIAGNOSTIC MAMMOGRAM WITH CAD - RIGHT BREAST POST-PROCEDURE IMAGING FOR MARKER PLACEMENT: 06/19/2019CLINICAL: Post clip placement. Current mammographic images were evaluated by either a [employer] M-Vu or an iCAD version 7.2 computer aided detection system. Comparison is made to exams dated 06/19/2019 ultrasound, 06/19/2019 ultrasound biopsy, 06/19/2019 ultrasound biopsy, 05/21/2019 ultrasound, and 05/21/2019 [facility] There are scattered fibroglandular tissues in the [...] placement in the right breast at 1 o'clock, anterior depth. There was successful marking clip placement in the right axilla. Sandra Jimenez M.D. cc/:06/19/2019 09:46:33 Banquet Steward: Dionne ESCALANTE, [facility]-RGMammogram BI-RADS: Post-procedure mammogram for marker placementBREAST ULTRASOUND [id number] 15:44:10 - DIAG MAMM BILATERAL SUSAN CAD DIGITALBILATERAL DIGITAL DIAGNOSTIC MAMMOGRAM 3D/2D WITH CAD: 9CLINICAL: Palpable Lump and nipple abnormality right breast. Digital breast tomosynthesis was performed in addition to routine CC and MLO views. Current mammographic images were evaluated by either a [employer]-Vu or an [employer] version 7.2 computer aided detection system. No [...] is pending; breast ultrasound to be performed to day. - BREAST ULTRASOUND BILATERALULTRASOUND OF BOTH BREASTS [...] - 05/22/2019 08:27:22Imaging Technologist: Kayden ESCALANTE, [facility]-RGletter sent: BIRADS 4/5 Biopsy Mammogram BI-RADS: 0 Indeterminate Ultrasound BI-RADS: 5 Highly suggestive of malignancyDIAG MAMM BILATERAL SUSAN CAD [id number] 15:44:10 - DIAG MAMM BILATERAL SUSAN CAD DIGITALBILATERAL DIGITAL DIAGNOSTIC MAMMOGRAM 3D/2D WITH CAD: 05/21/2019CLINICAL: Palpable Lump and nipple abnormality right breast. Digital breast tomosynthesis was performed in addition to routine CC and MLO views. Current mammographic images were evaluated by either a [employer]-Vu or an [employer] version 7.2 computer aided detection system. No [...] is pending; breast ultrasound to be performed to day. - BREAST ULTRASOUND BILATERALULTRASOUND OF BOTH BREASTS [...] is recommended.Sandra Jimenez M.D. cc/:05/21/2019 15:44:10 Entry: natasha - 05/22/2019 08:27:22Imaging Technologist: Kayden ESCALANTE, [facility]-letter sent: BIRADS 4/5 Biopsy Mammogram BI-RADS: 0 Indeterminate Ultrasound BI-RADS: 5 Highly suggestive of malignancy
[2020-01-09] MEDS ORDERED: ACETAMINOPHEN 500 MG TAB PO PRN (21:55)
[2020-01-09] MEDS ORDERED: HYDROMORPHONE HCL 1 MG/ML INJ IV PRN (21:55)
[2020-01-09] MEDS: ONDANSETRON 4 MG/2 ML VIAL IV PRN (22:56)
[2020-01-09] MEDS: METRONIDAZOLE 500mg IVPB 500 MG/100 ML BAG IV SCH (22:56)
[2020-01-09] MEDS: HYDROMORPHONE HCL 1 MG/ML INJ IV PRN (22:56)
[2020-01-09] MEDS: NA CHLORIDE 0.9% 1,000 ML IV SCH (22:58)
[2020-01-09] MEDS ORDERED: Levofloxacin500mg IV 500 MG/100 ML BAG IV SCH (23:00)
[2020-01-10] MEDS ORDERED: PIPER/TAZO/NS 3.375gm 3.375 GM/100 ML BAG ONE (00:40)
[2020-01-10] MEDS: HYDROMORPHONE HCL 1 MG/ML INJ IV PRN ×2 (02:58→21:23)
[2020-01-10] MEDS: ONDANSETRON 4 MG/2 ML VIAL IV PRN (03:22)
[2020-01-10] MEDS ORDERED: ONDANSETRON 4 MG/2 ML VIAL IV PRN ×2 (03:57→14:50)
[2020-01-10] MEDS: METRONIDAZOLE 500mg IVPB 500 MG/100 ML BAG IV SCH (05:15)
[2020-01-10] MEDS ORDERED: HYDROMORPHONE HCL 1 MG/ML INJ IV ONE (05:54)
[2020-01-10] MEDS: PIPER/TAZO/NS 3.375gm 3.375 GM/100 ML BAG IVPB SCH ×4 (06:00→17:34)
[2020-01-10 06:14] LABS: Absolute Lymphocytes (CBC) 0.5 K/uL (0.7-4.9); Basophils % 0.1 % (0-1.3); Hematocrit 32.8 % (36.0-45.0); Lymphocytes % 7.1 % (15.3-44.8); MPV 10.2 fL (7.6-11.3); RBC Red Blood Cell Count 3.41 M/uL (3.86-4.86)
[2020-01-10 06:18] LABS: Protime INR 1.1
[2020-01-10 06:31] LABS: Bilirubin Total 0.6 mg/dL (0.2-1.0); Magnesium 2.3 mg/dL (1.8-2.4); Phosphorus 2.9 mg/dL (2.5-4.9); Potassium 3.9 mmol/L (3.5-5.1); Protein, Total 6.8 g/dL (6.4-8.2)
--- NOTE | 2020-01-10 06:48 | P.HP ---
Certification for Inpatient Patient admitted to: Inpatient With expected LOS: >2 Midnights Patient will require the following post-hospital care: None Practitioner: I am a practitioner with admitting privileges, knowledge of patient current condition, hospital course, and medical plan of care. Services: Services provided to patient in accordance with Admission requirements found in Title 42 Section 412.3 of the Code of Federal Regulations Patient History Date of Service: 01/09/20 Reason for admission: Acute cholecystitis History of Present Illness: Patient is a 64-year-old female came to [facility] with a right upper quadrant tenderness. Patient has a history of breast cancer and has had chemotherapy. She had been doing well up until the pain started. In the emergency room, patient had imaging studies which revealed acute cholecystitis. Patient was transferred to our hospital after speaking with General surgery for laparoscopic cholecystectomy. Patient's ALT and AST are normal. Patient's bili Ortiz is normal as well as patient's lipase. Patient is having some nausea vomiting when I saw her. Patient also is having significant pain in the right upper quadrant. Patient is expected to have surgery this morning. Will wait for a general surgery evaluation and continue IV antibiotic therapy. Allergies No Known Allergies Allergy (Verified 10/04/19 08:57) Home Medications: Ondansetron [Ondansetron Odt] 1 tab PO PRN PRN 01/09/20 traMADol HCL [Ultram*] 50 mg PO Q4HP PRN 01/09/20 - Past Medical/Surgical History Has patient received pneumonia vaccine in the past: Yes Diabetic: No -: Breast Cancer - Right with Chemo -: c-sections x2 -: Left Kidney removed 2019 due to tumor - Family History Father History Unknown: Yes Mother History Unknown: Yes - Social History Smoking Status: Former smoker Alcohol use: Yes CD- Drugs: No Caffeine use: Yes Place of Residence: Home Review of Systems 10-point ROS is otherwise unremarkable Physical Examination - Vital Signs Temperature: 97.0 F Blood Pressure: 140/90 Pulse: 120 Respirations: 14 Pulse Ox (%): 95 - Physical Exam General: Alert, In no apparent distress, Oriented x3 HEENT: Atraumatic, PERRLA, Mucous membr. moist/pink, EOMI, Sclerae nonicteric Neck: Supple, 2+ carotid pulse no bruit, No LAD, Without JVD or thyroid abnormality Respiratory: Clear to auscultation bilaterally, Normal air movement Cardiovascular: Regular rate/rhythm, Normal S1 S2, No murmurs Gastrointestinal: Normal bowel sounds, Soft and benign, No guarding, Distended, Tenderness, Rebound Musculoskeletal: No clubbing, No swelling, No tenderness Integumentary: No rashes Neurological: Normal gait, Normal speech, Normal strength at 5/5 x4 extr, Normal tone, Sensation intact, Cranial nerves 3-12 intact, Normal affect Lymphatics: No axilla or inguinal lymphadenopathy - Studies Laboratory Data (last 24 hrs) 01/10/20 05:43: Sodium 144, Potassium 3.9, BUN 21 H, Creatinine 1.04, Glucose 200 H, Phosphorus 2.9, Magnesium 2.3, Total Bilirubin 0.6, AST 18, ALT 44, Alkaline Phosphatase 51, Lipase 22 L 01/10/20 05:43: PT 12.9 H, INR 1.10, APTT 25.6 01/10/20 05:43: WBC 6.4, Hgb 10.9 L, Hct 32.8 L, Plt Count 272 Assessment & Plan - Problems (Diagnosis) (1) Acute cholecystitis Current Visit: Yes Status: Acute (2) Intractable nausea and vomiting Current Visit: Yes Status: Acute (3) Abdominal distention Current Visit: Yes Status: Acute (4) History of breast cancer Current Visit: Yes Status: Acute (5) Hypoalbuminemia Current Visit: Yes Status: Acute (6) Anemia Current Visit: Yes Status: Acute - Plan 1. Continue with IV hydration 2. Continue with IV antibiotics 3. Continue with pain control 4. NPO 5. General surgery consultation; patient was transferred to our hospital after speaking with the general surgeon campaign consultant for laparoscopic cholecystectomy 6. Serial H&H, and we will monitor CBC, BMP, LFTs and lipase along with electrolytes. 7. GI and DVT prophylaxis Discharge Plan: Home Plan to discharge in: Greater than 2 days - Advance Directives Does patient have a Living Will: No Does patient have a Durable POA for Healthcare: No - Code Status/Comfort Care Code Status Assessed: Yes Code Status: Full Code Critical Care: No Time Spent Managing PTS Care (In Minutes): 50
[2020-01-10] MEDS ORDERED: HYDROMORPHONE HCL 0.5 MG/0.5 ML INJ IV PRN (07:20)
[2020-01-10] MEDS: NA CHLORIDE 0.9% 1,000 ML IV SCH ×3 (08:00→22:20)
[2020-01-10 09:16] LABS: Urine White Blood Cell Casts OK
[2020-01-10 09:17] LABS: Anisocytosis 1+; Blood Morphology Comment NOTED (NOT SEEN); Platelet Estimate ADEQ; Poikilocytosis 1+
--- NOTE | 2020-01-10 09:30 | RAD REPORT ---
EXAM DESCRIPTION: RAD - Abdomen 1 View (KUB) - 01/10/2020 8:38 am CLINICAL HISTORY: Abdomen pain. FINDINGS: Mild dilatation of several loops of bowel within central abdomen probably the colon. The t his may represent a mild ileus. Moderate stool is present throughout the colon
[2020-01-10] MEDS ORDERED: FENTANYL CITR 100 MCG/2 ML ONE ×3 (11:42→13:11)
[2020-01-10] MEDS ORDERED: LIDOCAINE 1% MPF 5 ML VIAL ONE (11:44)
[2020-01-10] MEDS ORDERED: ROCURONIUM 50 MG/5 ML VIAL IV ONE (11:44)
[2020-01-10] MEDS ORDERED: propofoL 200 MG/20 ML VIAL IV ONE (11:44)
[2020-01-10] MEDS ORDERED: SUCCINYLCHOLINE 20 MG/ML (10 ML) IV ONE (11:50)
[2020-01-10] MEDS ORDERED: ONDANSETRON 4 MG/2 ML VIAL ONE (13:52)
[2020-01-10] MEDS ORDERED: NS 0.9% VIAL 20 ML ONE (14:05)
[2020-01-10] MEDS ORDERED: Phenylephrine HCl 10 MG/ML 1 ML VIAL ONE (14:05)
[2020-01-10] MEDS ORDERED: HYDROMORPHONE HCL 1 MG/ML INJ ONE (14:25)
[2020-01-10] MEDS ORDERED: NA CHLORIDE 0.9% 1,000 ML ONE (14:34)
[2020-01-10] MEDS ORDERED: GLYCOPYRROLATE 0.2 MG/ML SYR ONE (14:48)
[2020-01-10] MEDS ORDERED: SODIUM CHLORIDE 0.9% 10ML INJ IV PRN (14:50)
[2020-01-10] MEDS ORDERED: NALOXONE 0.4 MG/ML VIAL IV PRN (14:50)
[2020-01-10] MEDS ORDERED: HYDROMORPHONE/PCA 10 MG/50 ML SYR IV PRN (14:50)
--- NOTE | 2020-01-10 14:50 | P.OP ---
Industrial Boilermaker: Ya GRAY Preoperative diagnosis: Acute Cholecystitis and Cholelithiasis Postoperative diagnosis: same with Perforation of GB Primary procedure: Diag Lap, Exp Lap, Open Cholecystectomy Anesthesia: General Estimated blood loss: Min Specimen: GB Findings: as above Complications: None Drain(s): Nasogastric, KAEL drain Transferred to: Recovery Room Condition: Fair
[2020-01-10] MEDS ORDERED: NEOSTIGMINE 1 MG/ML -5 ML ONE (14:52)
--- NOTE | 2020-01-10 14:56 | P.PN ---
Subjective Date of Service: 01/10/20 Primary Care Provider: Oncology-Dr. Julien; Surgery-Dr. Birch Chief Complaint: Acute cholecystitis Subjective: Other (Patient NPO for surgery. Pain slightly controlled) Physical Examination - Vital Signs Temperature: 97.6 F Blood Pressure: 180/96 Pulse: 115 Respirations: 24 Pulse Ox (%): 93 - Physical Exam General: Alert Neck: Supple Respiratory: Clear to auscultation bilaterally, Normal air movement Cardiovascular: Abnormal pulses (Mild sinus tachycardia) Gastrointestinal: Hypoactive, Tenderness (Pain to the right upper quadrant) Neurological: Normal speech, Normal strength at 5/5 x4 extr, Normal tone, Normal affect - Studies Laboratory Data (last 24 hrs) 01/10/20 05:43: Sodium 144, Potassium 3.9, BUN 21 H, Creatinine 1.04, Glucose 200 H, Phosphorus 2.9, Magnesium 2.3, Total Bilirubin 0.6, AST 18, ALT 44, Alkaline Phosphatase 51, Lipase 22 L 01/10/20 05:43: PT 12.9 H, INR 1.10, APTT 25.6 01/10/20 05:43: WBC 6.4, Hgb 10.9 L, Hct 32.8 L, Plt Count 272 Medications List Reviewed: Yes Assessment & Plan Discharge Plan: Home Plan to discharge in: Greater than 2 days Physician Review Additional Text: Impression: Sepsis secondary to Acute cholecystitis with cholelithiasis with noted perforated gallbladder status post open cholecystectomy Acute renal injury likely dehydration History of stage IV breast cancer on chemotherapy History of renal cell carcinoma with left nephrectomy Anemia of chronic disease Plan: Sepsis secondary to Acute cholecystitis with cholelithiasis with noted perforated gallbladder status post open cholecystectomy: Case discussed at length with oncology and surgery. Patient was noted to have perforated gallbladder. This required open cholecystectomy. Case discussed with surgery after surgery. Patient will go to the ICU for close monitoring. Continue aggressive IV fluids, antibiotics. Will continue monitor closely. Acute renal injury likely dehydration: Continue IV fluids. Will monitor closely. History of stage IV breast cancer on chemotherapy: Will discuss further with Oncology. Await further recommendations History of renal cell carcinoma with left nephrectomy: Will need to monitor renal function closely. Anemia of chronic disease: Will monitor closely. Time Spent Managing Pts Care (In Minutes): 55
[2020-01-10] MEDS ORDERED: HALOPERIDOL LACT 5 MG/ML INJ IV PRN (16:37)
[2020-01-10] MEDS ORDERED: MIDAZOLAM HCL 2 MG/2 ML INJ IV PRN (16:37)
[2020-01-10] MEDS ORDERED: LORazepam 2 MG/ML VIAL IV PRN (16:37)
--- NOTE | 2020-01-10 16:50 | PREOPCON ---
Date of Consultation: 01/10/2020 Reason: Abdominal pain. History Of Present Illness: Patient is a 64-year-old female who I have been seeing since late last y ear with breast cancer. She also had kidney cancer. She underwent a nephrectomy in [place] [facility] at the end of last year. She was found to also have advanced breast cancer and I referred h er to [facility] for neoadjuvant chemo. She was undergoing that. She was in her usual state of health and the pain started yesterday. She had severe right upper quadrant pain with tenderness. She went to the emergency room in [place], was diagnosed with acute cholecystitis and cholelithiasis. She was transferred over here. Initially, Dr. Wood saw the patient, but once he realized that t his was the patient that I had been following, he called me and I accepted the patient. Patient is a wake and alert, complaining of nausea and vomiting and right upper quadrant abdominal pain, severe. Review of Systems: Otherwise unremarkable. No sore throat, runny nose, cough, headaches, or dizziness. No chest pain. No fever or chills. Past Medical History: Breast cancer, kidney cancer. Past Surgical History: Left nephrectomy, C-sections x2. Allergies: NONE. Social History: Reviewed. Family History: Noncontributory at this time. Physical Examination: Vital Signs: Significant for slight tachycardia. She is afebrile. General: She is awake, alert, and oriented x3. Head and Neck: No evidence of icterus. No neck masses. No JVD. Throat clear. Neck supple. Neurologic: Cranial nerves 2 through 12 are grossly within normal limits. Nonfocal. Chest: Clear. Heart: S1 and S2. Abdomen: Soft, nondistended, positive right upper quadrant tenderness with rebound. No rigidity or guarding and she does have a small umbilical hernia, which is reducible. Extremities: Adequately perfused. Nontender. Laboratory Data: White count is 6.4 with a left shift. INR is 1.10. LFTs, amylase, lipase are with in normal limits. Diagnostic Data: CT of the abdomen and pelvis done in [place] was reviewed with Dr. Cheney. [facility] she has evidence of acute cholecystitis and cholelithiasis. Assessment: 64-year-old female with kidney cancer, breast cancer, and acute cholecystitis and cholel ithiasis. Plan: Admit n.p.o., IV fluid, IV antibiotic. To the OR for lap choly, possible open. She does have a small umbilical hernia, will repair that as well. Patient understands the risks, benefits, and al ternatives and agrees to procedure. /MODL Voice ID: [id number] Report ID: [id number]
[2020-01-10] MEDS: propofoL 1,000 MG/100 ML VIAL IV PRN (16:51)
--- NOTE | 2020-01-10 17:16 | RAD REPORT ---
EXAM DESCRIPTION: RAD - Chest Single View - 01/10/2020 5:02 pm CLINICAL HISTORY: ett placement COMPARISON: October 07, 2019 TECHNIQUE: AP portable chest image was obtained 01/10/2020 5:02 pm . FINDINGS: Endotracheal tube has been placed. Tip is the T4 level, top of the aortic arch. This is 3 cm above the gomez. Left jugular central line is in place. Tip is in the mid SVC directed towards the lateral wall. NG tube is in place extending below the diaphragm with the tip in the proximal stomach. Heart and vasculature are within normal range for shallow inspiration portable exam. Low lung volume s accentuate basilar markings. Atelectasis is present. No diffuse pulmonary edema. No pneumothorax. IMPRESSION: Endotracheal tube in good position. NG tube extends below the diaphragm. Tip is in the proximal stomach Left jugular central line in place with the tip in the mid SVC. Tip is directed towards the lateral w all. Atelectasis in the lung bases. No diffuse pulmonary edema.
[2020-01-10] MEDS ORDERED: NA CHLORIDE 0.9% 500 ML IV ONE (17:22)
[2020-01-10] MEDS ORDERED: NA CHLORIDE 0.9% 500 ML IV PRN (17:23)
[2020-01-10] MEDS: FENTANYL CITR 100 MCG/2 ML IV PRN ×2 (17:43→22:19)
[2020-01-10] MEDS ORDERED: FAMOTIDINE 20 MG/2 ML VIAL IV SCH (21:00)
[2020-01-10] MEDS ORDERED: PIPER/TAZO/NS 3.375gm 3.375 GM/100 ML BAG IVPB SCH (22:00)
--- NOTE | 2020-01-10 23:35 | OP ---
Date of Procedure: 01/10/2020 Surgeon: Beto Birch MD [place] Consultant: MARINA Santiago. Preoperative Diagnoses: Acute cholecystitis and cholelithiasis, umbilical hernia. Postoperative Diagnoses: Acute cholecystitis and cholelithiasis with gallbladder perforation, umbili quynh hernia. Procedures Performed: Diagnostic laparoscopy, exploratory laparotomy, and open cholecystectomy, repa ir of umbilical hernia. Estimated Blood Loss: Minimal. Specimen: Gallbladder. Findings: As above. Anesthesia: General. Complications: None. Drains: #10 flat KAEL drain. Disposition: Patient tolerated the procedure in stable condition, taken to Recovery in good general condition. Procedure In Detail: The patient was brought to the OR and placed in supine position. General anest hesia was begun. Patient was prepped and draped in the usual sterile fashion. Marcaine 0.5% was inf iltrated locally. A 15-blade was used to make a 3 cm curvilinear incision over the hernia. It was p eriumbilical left to the umbilicus. Subcutaneous tissues divided, hernia sac and contents identified and excised, sent to Pathology as specimen. #1 Vicryl stay suture placed in approximately 1.5 cm de fect in the fascia and then peritoneal cavity entered with sharp and blunt dissection. A 12 mm troca r was placed into the peritoneal cavity under direct vision. Pneumoperitoneum was established. One 5 mm trocar placed in the right epigastrium just to the right of midline and laparoscopy revealed shayy e all over the belly, lots of scar tissues, lots of adhesions in the right upper quadrant and pus pre sent consistent with perforated gallbladder. Subsequently, decision made to convert to an open proce dure. A generous right subcostal incision made, subcutaneous tissues divided. Fascia was identified and divided. Rectus abdominis muscle divided, posterior sheath divided, and peritoneal cavity enter ed. Lysis of adhesion with all the scar tissues that were present was done. There was moderate amou nt of bile near the gallbladder and the right subphrenic space. This was all aspirated above the melba er, was irrigated thoroughly until everything was clean and then the liver was pushed downward to hel p expose the gallbladder into the wound and there was omental adhesion in the posterior aspect of the gallbladder and the anterior aspect, which were taken down with sharp and blunt dissection. There w as hole in the gallbladder, which was clamped with a Lexis clamp and then the retrograde dissection p roceeded of the gallbladder on the liver bed. Bleeding controlled with cautery. Cystic duct and cys tic artery identified. Clips placed, both structures divided and then the gallbladder was removed an d sent to Pathology. The right upper quadrant and the gallbladder fossa were thoroughly irrigated. Bleeding controlled with cautery. Minimal oozing noted in the liver bed. Surgicel placed. Sekou Smart drain #10 flat placed, secured with 3-0 nylon. After all counts were correct, a #1 chromic sut ure was used to close the posterior sheath. #2 Nylon was used to close the fascia. Subcutaneous wou nds were irrigated. Bleeding controlled with cautery and 3-0 chromic used to approximate the subcuta neous tissue and letty used to close skin and #1 Vicryl was used to close the umbilical defect. Rivera bcutaneous tissues irrigated, bleeding controlled with cautery. 3-0 chromic used to reapproximate rivera bcutaneous tissue and letty used to closed skin. Sterile dressing was applied. Patient was awaken ed and taken to the recovery in good general condition. /MODL Voice ID: [id number] Report ID: [id number]
[2020-01-11] MEDS: PIPER/TAZO/NS 3.375gm 3.375 GM/100 ML BAG IVPB SCH ×3 (00:31→17:10)
[2020-01-11] MEDS: propofoL 1,000 MG/100 ML VIAL IV PRN (02:22)
[2020-01-11 02:38] LABS: Absolute Lymphocytes (CBC) 0.6 K/uL (0.7-4.9); Basophils % 0.8 % (0-1.3); Lymphocytes % 12.1 % (15.3-44.8); MPV 10.4 fL (7.6-11.3); RBC Red Blood Cell Count 2.92 M/uL (3.86-4.86)
[2020-01-11 02:43] LABS: Magnesium 2.2 mg/dL (1.8-2.4); Phosphorus 1.3 mg/dL (2.5-4.9); Potassium 3.9 mmol/L (3.5-5.1)
[2020-01-11] MEDS ORDERED: POTASSIUM PHOS IN 0.9 % NACL 15 MMOL/250 ML BAG IV ONE ×2 (02:51→13:30)
[2020-01-11] MEDS: HYDROMORPHONE HCL 1 MG/ML INJ IV PRN ×4 (03:35→22:54)
[2020-01-11 05:25] LABS: Arterial Blood Carboxyhemoglob 1.4 % (0-1.5); Blood Gas Oxyhemoglobin 92.9 % (94-97); Blood O2 Saturation 95.2 % (92-98.5)
[2020-01-11] MEDS ORDERED: CALCIUM GLUC 10% INJ 4.65 MEQ in NA CHLORIDE 0.9% 100 ML IV ONE ×2 (05:45→08:00)
[2020-01-11] MEDS: FENTANYL CITR 100 MCG/2 ML IV PRN (06:11)
[2020-01-11] MEDS: NA CHLORIDE 0.9% 1,000 ML IV SCH ×2 (07:52→16:58)
[2020-01-11] MEDS ORDERED: METOPROLOL TARTRATE 5 MG/5 ML INJ IV PRN (08:14)
[2020-01-11] MEDS: PANTOPRAZOLE 40 MG INJ IVP SCH (08:59)
[2020-01-11] MEDS ORDERED: ENOXAPARIN 30 MG/0.3 ML SQ SCH (09:00)
[2020-01-11] MEDS ORDERED: ENOXAPARIN 40 MG/0.4 ML SQ SCH (09:00)
--- NOTE | 2020-01-11 09:45 | RAD REPORT ---
EXAM DESCRIPTION: Lenny Single View01/11/2020 6:25 am CLINICAL HISTORY: Ventilation COMPARISON: January 09 FINDINGS: Endotracheal nasogastric tubes remain in place Small right pleural effusion with right basilar atelectasis infiltrate unchanged Left lung appears grossly clear. Heart remains enlarged. Central venous line with its tip in the superior vena cava Prominence of the left paratracheal region unchanged which may represent tortuosity of vessels, aneu rysm or lymphadenopathy
--- NOTE | 2020-01-11 10:31 | P.PN ---
Subjective Date of Service: 01/11/20 Primary Care Provider: Oncology-Dr. Julien; Surgery-Dr. Birch Chief Complaint: Acute cholecystitis Subjective: Other (alert, intubated. follows commands) Physical Examination - Vital Signs Temperature: 98.4 F Blood Pressure: 110/60 Pulse: 135 Respirations: 19 Pulse Ox (%): 98 - Physical Exam General: Alert, Cooperative, Other (follows commands) HEENT: Atraumatic Neck: Supple Respiratory: Clear to auscultation bilaterally, Normal air movement Cardiovascular: Normal pulses, Regular rate/rhythm Gastrointestinal: Hypoactive, Other (post op changes) - Studies Laboratory Data (last 24 hrs) 01/11/20 02:15: Sodium 145, Potassium 3.9, BUN 21 H, Creatinine 0.84, Glucose 125 H, Phosphorus 1.3 L D, Magnesium 2.2 01/11/20 02:15: WBC 5.2 D, Hgb 9.1 L, Hct 28.0 L, Plt Count 193 D Medications List Reviewed: Yes Assessment & Plan Discharge Plan: Home Plan to discharge in: Greater than 2 days Physician Review Additional Text: Impression: Sepsis secondary to Acute cholecystitis with cholelithiasis with noted perforated gallbladder status post open cholecystectomy Acute renal injury likely dehydration History of stage IV breast cancer on chemotherapy History of renal cell carcinoma with left nephrectomy Anemia of chronic disease Hypocalcemia SVT Plan: Sepsis secondary to Acute cholecystitis with cholelithiasis with noted perforated gallbladder status post open cholecystectomy: Patient currently in ICU. Patient alert and cooperative. Patient still intubated. Anticipate patient will be extubated today. Pulmonology to help with this. Case discussed with surgery yesterday. Continue with surgery recommendations. Will monitor closely. Will discuss with her oncologist as well. Acute renal injury likely dehydration: Continue IV fluids. Will continue to monitor closely. History of stage IV breast cancer on chemotherapy: Will discuss further with Oncology. Await further recommendations History of renal cell carcinoma with left nephrectomy: Will need to monitor renal function closely. Anemia of chronic disease: Will monitor closely. Hypocalcemia: Will check lab. Patient to get calcium gluconate. SVT: Patient had episode of SVT. Case discussed with cardiology. Will obtain echocardiogram to further evaluate. Time Spent Managing Pts Care (In Minutes): 55
--- NOTE | 2020-01-11 11:04 | P.CNS ---
Date of Consult: 01/11/20 Reason for Consult: Patient on a ventilator Primary Care Provider: Oncology-Dr. Julien; Surgery-Dr. Birch Chief Complaint: Acute cholecystitis History of Present Illness: Patient is 64 years of age status post cholecystectomy perforated gallbladder history of breast cancer on chemotherapy was left on a ventilator transferred here to the ICU this morning she is very alert responsive cooperative wants to be extubated no prior history of cardiopulmonary problems patient is hemodynamically stable no fever Allergies No Known Allergies Allergy (Verified 10/04/19 08:57) Home Medications: Ondansetron [Ondansetron Odt] 1 tab PO PRN PRN 01/09/20 traMADol HCL [Ultram*] 50 mg PO Q4HP PRN 01/09/20 - Past Medical/Surgical History Diabetic: No -: Breast Cancer - Right with Chemo -: c-sections x2 -: Left Kidney removed 2018 due to tumor - Family History Father History Unknown: Yes Mother History Unknown: Yes - Social History Alcohol use: Yes CD- Drugs: No Caffeine use: Yes Place of Residence: Home Review of Systems Unremarkable Physical Examination Temp Pulse Resp BP Pulse Ox 98.4 F 135 H 19 110/60 98 01/11/20 10:31 01/11/20 10:31 01/11/20 10:31 01/11/20 10:31 01/11/20 10:31 General: Alert, Cooperative Respiratory: Clear to auscultation bilaterally Cardiovascular: No edema, Regular rate/rhythm Laboratory Data (last 24 hrs) 01/11/20 02:15: Sodium 145, Potassium 3.9, BUN 21 H, Creatinine 0.84, Glucose 125 H, Phosphorus 1.3 L D, Magnesium 2.2 01/11/20 02:15: WBC 5.2 D, Hgb 9.1 L, Hct 28.0 L, Plt Count 193 D - Problems (1) Respiratory failure following trauma and surgery Current Visit: Yes Status: Acute Plan: Patient is 64 years of age admitted with a perforated gallbladder status post cholecystectomy is doing well hemodynamically stable oxygenation stable she pass the weaning trial and is now extubated she is very alert responsive cooperative no prior history of cardiopulmonary problems she has some haziness on the right side possible effusion or atelectasis white count is normal mildly anemic
[2020-01-11] MEDS: ENOXAPARIN 40 MG/0.4 ML SQ SCH (11:30)
[2020-01-11 11:46] LABS: Magnesium 2.3 mg/dL (1.8-2.4); Phosphorus 1.5 mg/dL (2.5-4.9); Potassium 3.9 mmol/L (3.5-5.1); Thyroid Stimulating Hormone 0.181 uIU/mL (0.360-3.740)
--- NOTE | 2020-01-11 12:30 | PN ---
Subjective: Patient was slow to wake up yesterday after surgery. She remain intubated last night. She is awake and alert this morning. No difficulty in breathing. Her ABG was reviewed. She is jovanny le acidotic, however, her urine output was borderline last night. She was given couple of boluses th is morning. It is adequate. NG tube did not put anything out. Her white count is normal, but there is a left shift. Electrolytes reviewed. Objective: Vital Signs: Stable. She is afebrile. Abdomen: Benign. Assessment: Status post open cholecystectomy, sepsis. Patient with breast cancer, kidney cancer. Recommendation: She is being weaned from the vent right now. Dr. Hayes will extubate her and the n she can have her NG tube that we will start her on clear liquids and incentive spirometry, Physical Therapy, IV antibiotics which is clinically stable. /MODL Voice ID: [id number] Report ID: [id number]
--- NOTE | 2020-01-11 15:33 | PN ---
Date of Progress Note: 01/11/2020 Ms. Jurado was admitted on 01/09/2020, underwent emergency cholecystectomy on 01/10/2020. She was seen then for SVT that is paroxysmal. Overnight, she has not had much in way of supraventricular tachyca rdia. Her episodes are brief, asymptomatic. No hemodynamic compromise. Her heart rate remains at 1 06. Phosphate and calcium are still being supplemented. Potassium and magnesium remain within marcus l limit. She remains on antibiotics. She remains on hydration. TSH and echocardiogram are pending. We will continue use of IV beta-blockers on an as-needed basis. We will see what her echo and TSH show before making any further decisions. DUONG/NAE Voice ID: [id number] Report ID: [id number]
--- NOTE | 2020-01-11 15:57 | CON ---
Date of Consultation: 01/10/2020 Reason For Consultation: History of ventricular tachycardia. History Of Present Illness: Ms. Jurado is a 64-year-old woman who was admitted for perforated gallblad duane, underwent emergency surgery. Postoperatively, she had episodes of supraventricular tachycardia that was paroxysmal, rate of about 140-160. No hemodynamic compromise. The patient has never had ca rdiac history in the past. She has a history of renal cancer, status post left nephrectomy. She had breast cancer, stage IV. She is on chemotherapy right now. She is intubated. She has no previous cardiac symptoms. Past Medical History: As stated above. Allergies: NONE. Review of Systems: Negative. Social History: Negative. Family History: Negative. Medications: At home include chemotherapy only. Physical Examination: Vital Signs: Her heart rate was 106, sinus tach. Blood pressure 103/68. She is intubated and afebr ile, pO2 of 68, pCO2 of 36, pH is 7.35. HEENT: Negative. General: She is alert and oriented, awake, hoping to be extubated soon. Neck: Supple with no bruit. Chest: Clear. Cardiac: Revealed a regular rhythm and rate. No murmurs, gallops, or rubs. Abdomen: Obese, but benign. Extremities: Revealed no clubbing, cyanosis, or edema. Diagnostic Data: EKG showed nonspecific changes. Her calcium was 6.7, potassium and magnesium are w ithin normal limit. Phosphate is 1.3, hemoglobin is 9.1. Impression And Plan: Supraventricular tachycardia, status post emergency gallbladder surgery for per forated gallbladder. The patient has low phosphate, low calcium, which needs to be supplemented. He r potassium and magnesium were adequate. Her supraventricular tachycardia may be secondary to the st ress of surgery and her electrolyte abnormalities. I would just give her some IV beta-blockers, 5 mg of Lopressor as needed if her heart rate goes over 140 and it sustained for more than 1 minute. Nurys nwhile, we will get an echocardiogram and check her TSH level. Continue antibiotics with Zosyn, Leva bertin, and Flagyl. I will correct electrolytes and I will continue to follow her. DUONG/NAE Voice ID: [id number] Report ID: [id number]
[2020-01-11] MEDS ORDERED: NA CHLORIDE 0.9% 500 ML IV ONE (22:22)
[2020-01-12] MEDS: PIPER/TAZO/NS 3.375gm 3.375 GM/100 ML BAG IVPB SCH ×3 (00:44→17:18)
[2020-01-12] MEDS: NA CHLORIDE 0.9% 1,000 ML IV SCH ×2 (00:47→07:56)
[2020-01-12] MEDS: HYDROMORPHONE HCL 1 MG/ML INJ IV PRN ×4 (03:28→20:09)
[2020-01-12 05:37] LABS: Absolute Lymphocytes (CBC) 0.8 K/uL (0.7-4.9); Basophils % 0.2 % (0-1.3); Hematocrit 26.2 % (36.0-45.0); Lymphocytes % 18.6 % (15.3-44.8); MPV 10.4 fL (7.6-11.3); RBC Red Blood Cell Count 2.71 M/uL (3.86-4.86)
[2020-01-12] MEDS ORDERED: METOPROLOL TARTRATE 5 MG/5 ML INJ IV STA (05:37)
[2020-01-12] MEDS ORDERED: NA CHLORIDE 0.9% 250 ML IV ONE (05:37)
[2020-01-12 05:49] LABS: Magnesium 2.3 mg/dL (1.8-2.4); Phosphorus 1.4 mg/dL (2.5-4.9); Potassium 3.9 mmol/L (3.5-5.1)
[2020-01-12] MEDS ORDERED: POTASSIUM PHOS IN 0.9 % NACL 15 MMOL/250 ML BAG IV ONE (06:09)
[2020-01-12 07:29] LABS: Blood Morphology Comment NOT SEEN (NOT SEEN); Platelet Estimate ADEQ; Urine White Blood Cell Casts OK
[2020-01-12] MEDS: PANTOPRAZOLE 40 MG INJ IVP SCH (07:31)
[2020-01-12] MEDS: ENOXAPARIN 40 MG/0.4 ML SQ SCH (07:31)
[2020-01-12] MEDS ORDERED: WATER FOR INJ,STERILE 10 ML ONE (07:35)
[2020-01-12] MEDS ORDERED: NA CHLORIDE 0.9% 1,000 ML IV SCH (11:00)
--- NOTE | 2020-01-12 11:06 | RAD REPORT ---
EXAM DESCRIPTION: RAD - Chest Single View - 01/12/2020 9:54 am CLINICAL HISTORY: sob COMPARISON: January 09, January 10 TECHNIQUE: AP portable chest image was obtained 01/12/2020 9:54 am . FINDINGS: Endotracheal tube has been removed. Left jugular central line is unchanged in positioning. Lung volumes are low. Heart size is enlarged. Vascular engorgement is present. Interstitial opacific ation and patchy alveolar opacities are present with the airspace component slightly improved. Right pleural effusion appears enlarged. No pneumothorax. IMPRESSION: CHF/volume overload pattern is present showing very slight improvement. Increased opacification in the right lung base is believed to be enlarging pleural effusion.
--- NOTE | 2020-01-12 11:52 | PN ---
Ms. Jurado was admitted for acute cholecystitis with perforated gallbladder, status post emergency chol ecystectomy. She was having supraventricular tachycardia episodes intermittently. She was treated w ith IV beta-blockers and p.o. beta-blockers and she has not had any further SVT. She does have a his tory of breast cancer, stage IV, on chemotherapy. She is status post left nephrectomy for renal canc er in the past. Her calcium is 6.7. Her phosphate is 1.4. She is now extubated. Her electrolytes needs to be supplemented. She is in sinus rhythm with occasional bigeminy. TSH is 0.18 and that nee ds to be addressed. I think beta-blockers may help in that regard. Echocardiogram is pending for e . DUONG/NAE Voice ID: [id number] Report ID: [id number]
[2020-01-12] MEDS ORDERED: TRAMADOL HCL 50 MG TAB PO PRN (11:58)
[2020-01-12] MEDS ORDERED: HYDROCODONE/APAP 7.5/325 MG TAB PO PRN (11:58)
[2020-01-12] MEDS ORDERED: FUROSEMIDE 40 MG/4 ML VIAL IV ONE (12:00)
--- NOTE | 2020-01-12 12:02 | P.PN ---
Subjective Date of Service: 01/12/20 Primary Care Provider: Oncology-Dr. Julien; Surgery-Dr. Birch Chief Complaint: Acute cholecystitis Subjective: Doing well Physical Examination - Vital Signs Temperature: 97.9 F Blood Pressure: 111/51 Pulse: 110 Respirations: 19 Pulse Ox (%): 95 - Physical Exam General: Alert, Cooperative HEENT: Atraumatic Neck: Supple Respiratory: Crackles/rales Cardiovascular: Normal pulses, Regular rate/rhythm Gastrointestinal: Normal bowel sounds, Soft and benign, Non-distended, No masses, No rebound, No guarding Musculoskeletal: No erythema, No tenderness, No warmth Integumentary: No warmth, No cyanosis Neurological: Normal speech, Normal strength at 5/5 x4 extr, Normal tone, Normal affect - Studies Laboratory Data (last 24 hrs) 01/12/20 05:05: Sodium 142, Potassium 3.9, BUN 13, Creatinine 0.69, Glucose 105, Phosphorus 1.4 L, Magnesium 2.3 01/12/20 05:05: WBC 4.3 D, Hgb 8.7 L, Hct 26.2 L, Plt Count 191 Medications List Reviewed: Yes Assessment & Plan Discharge Plan: Home Plan to discharge in: 24 Hours Physician Review Additional Text: Impression: Sepsis secondary to Acute cholecystitis with cholelithiasis with noted perforated gallbladder status post open cholecystectomy Acute renal injury likely dehydration History of stage IV breast cancer on chemotherapy History of renal cell carcinoma with left nephrectomy Anemia of chronic disease Hypocalcemia SVT Suspect volume overload Abnormal tsh Plan: Sepsis secondary to Acute cholecystitis with cholelithiasis with noted perforated gallbladder status post open cholecystectomy: Patient has done well. Will transfer the patient to the floor. Will adjust medications. Chest x-ray shows some volume overload. Will provide IV Lasix. Will change pain medication to oral. Case discussed with surgery. Cardiology ordered echocardiogram. Continue DVT prophylaxis. Will discuss further with Oncology. Anticipate improvement over the next 24 hr. Acute renal injury likely dehydration: Dc IV fluids. Will provide Lasix. Will monitor closely. History of stage IV breast cancer on chemotherapy: Will discuss further with Oncology. Await further recommendations History of renal cell carcinoma with left nephrectomy: Will need to monitor renal function closely. Anemia of chronic disease: Will monitor closely. Hypocalcemia: Lab pending. Low calcium again peer will provide calcium gluconate. SVT: Patient had episode of SVT. Case discussed with cardiology. Will obtain echocardiogram to further evaluate. Suspect volume overload: Will provide Lasix. Discontinue IV fluids. Will monitor closely. Echocardiogram pending. Abnormal tsh: Will obtain further lab. Time Spent Managing Pts Care (In Minutes): 55
--- NOTE | 2020-01-12 12:08 | PN ---
Date of Progress Note: 01/12/2020 Subjective: Patient is awake, alert, was extubated yesterday. NG-tube was discontinued. She is silvino erating clear liquids. Laboratory Data: Reviewed. Objective: Vital Signs: Stable. She is afebrile. Abdomen: Benign. KAEL has serosanguineous fluid, minimal. Assessment: Status post open cholecystectomy. Recommendations: Advance diet to regular diet. Decrease IV fluids, KVO. We will transfer the patie nt to the floor. Discontinue Avelar. Patient is clinically doing well. Hopefully home in a day or 2 . /MODL Voice ID: [id number] Report ID: [id number]
[2020-01-12] MEDS ORDERED: CALCIUM GLUC 10% INJ 4.65 MEQ in NA CHLORIDE 0.9% 100 ML IV ONE (13:00)
[2020-01-13] MEDS: PIPER/TAZO/NS 3.375gm 3.375 GM/100 ML BAG IVPB SCH ×3 (01:01→16:55)
[2020-01-13 04:14] LABS: Absolute Lymphocytes (CBC) 0.8 K/uL (0.7-4.9); Basophils % 0.4 % (0-1.3); Hematocrit 26.8 % (36.0-45.0); Lymphocytes % 14.9 % (15.3-44.8); MPV 10.4 fL (7.6-11.3); RBC Red Blood Cell Count 2.83 M/uL (3.86-4.86)
[2020-01-13 04:33] LABS: BUN Blood Urea Nitrogen 8 mg/dL (7-18); Bicarbonate 23 mmol/L (21-32); Glucose Level 109 mg/dL (74-106); Magnesium 2.1 mg/dL (1.8-2.4); Potassium 3.1 mmol/L (3.5-5.1); Sodium Level 138 mmol/L (136-145)
[2020-01-13] MEDS ORDERED: POTASSIUM 25 MEQ EFFERV TAB PO ONE (06:35)
[2020-01-13 07:22] VITALS: BMI 41.6
[2020-01-13] MEDS ORDERED: POTASSIUM CL SA 10 MEQ TAB PO ONE (07:36)
[2020-01-13] MEDS: PANTOPRAZOLE 40MG TABLET PO SCH (08:16)
[2020-01-13] MEDS: ENOXAPARIN 40 MG/0.4 ML SQ SCH (08:16)
--- NOTE | 2020-01-13 09:41 | RAD REPORT ---
EXAM DESCRIPTION: Lenny Johnson And Jimmie (2 Views)01/13/2020 8:35 am CLINICAL HISTORY: Shortness of breath COMPARISON: January 11 FINDINGS: Small to moderate right pleural effusion unchanged. Mild to moderate bilateral interstitial opacities are unchanged. Heart remains enlarged IMPRESSION: No change in mild to moderate CHF
[2020-01-13] MEDS ORDERED: FUROSEMIDE 40 MG/4 ML VIAL IV ONE (11:37)
--- NOTE | 2020-01-13 11:42 | P.PN ---
Subjective Date of Service: 01/13/20 Primary Care Provider: Oncology-Dr. Julien; Surgery-Dr. Birch Chief Complaint: Acute cholecystitis Subjective: Other (Mild shortness of breath noted overall improved. Patient tolerating diet) Physical Examination - Vital Signs Temperature: 97.5 F Blood Pressure: 140/75 Pulse: 97 Respirations: 18 Pulse Ox (%): 96 - Physical Exam General: Alert, In no apparent distress, Oriented x3, Cooperative HEENT: Atraumatic Neck: Supple Respiratory: Crackles/rales (Crackles to the bases) Cardiovascular: Normal pulses, Regular rate/rhythm Gastrointestinal: Normal bowel sounds, No masses, No rebound, No guarding, Other (Postop changes noted) Integumentary: Tenderness/swelling (Mild edema to the lower extremities bilateral) Neurological: Normal speech, Normal strength at 5/5 x4 extr, Normal tone - Studies Laboratory Data (last 24 hrs) 01/13/20 03:55: Sodium 138, Potassium 3.1 L, BUN 8, Creatinine 0.62, Glucose 109 H, Phosphorus 1.0 L, Magnesium 2.1 01/13/20 03:55: WBC 5.2 D, Hgb 8.9 L, Hct 26.8 L, Plt Count 209 Medications List Reviewed: Yes Assessment & Plan Discharge Plan: Home Plan to discharge in: 24 Hours Physician Review Additional Text: Impression: Sepsis secondary to Acute cholecystitis with cholelithiasis with noted perforated gallbladder status post open cholecystectomy Acute renal injury likely dehydration History of stage IV breast cancer on chemotherapy History of renal cell carcinoma with left nephrectomy Anemia of chronic disease Hypocalcemia SVT Suspect volume overload likely related to underlying congestive heart failure Abnormal tsh Hypokalemia Plan: Sepsis secondary to Acute cholecystitis with cholelithiasis with noted perforated gallbladder status post open cholecystectomy: Patient doing well. Continue to replace electrolytes. Suspect underlying CHF. Patient given Lasix yesterday. Will give Lasix again today and continue. Echocardiogram ordered to evaluate for underlying CHF. Continue to work with physical therapy. Continue DVT prophylaxis. Spoke with surgery. Patient will remain in the hospital 1 more day. Anticipate discharge tomorrow. Will prepare for home health and physical therapy at discharge. Will need to check the if the patient will require home oxygen as well. I will turn the service over to the hospitalist team tomorrow. I will go over the plan of care with him. Acute renal injury likely dehydration: Continue 1500 cc per day fluid restriction. On Lasix for suspected underlying CHF. History of stage IV breast cancer on chemotherapy: Will discuss further with Oncology. Await further recommendations History of renal cell carcinoma with left nephrectomy: Will need to monitor renal function closely. Anemia of chronic disease: Will monitor closely. Hypocalcemia: Lab pending. Low calcium again peer will provide calcium gluconate. SVT: Patient had episode of SVT. Case discussed with cardiology. Will obtain echocardiogram to further evaluate. Suspect volume overload likely related to underlying congestive heart failure: X-ray still shows some volume overload. Suspect underlying CHF likely systolic versus diastolic dysfunction. Will provide Lasix again today. Will continue with Lasix. Patient may require home oxygen at discharge. Abnormal tsh: Tsh abnormal but with normal free T4. Will recommend to recheck lab in 2-4 weeks to monitor her progress. If this continues to be abnormal this will need to be further evaluated as an outpatient. Hypokalemia: Will continue to replace and monitor. Time Spent Managing Pts Care (In Minutes): 55
--- NOTE | 2020-01-13 12:14 | PN ---
Date of Progress Note: 01/13/2020 Subjective: Patient is awake, alert, no complaint, tolerating diet, having bowel movements, passing gas. Bowel stable. Afebrile. White count is normal. Potassium is low, being replaced. Abdomen is benign. KAEL is putting out serosanguinous fluid. Assessment: Status post open cholecystectomy. Recommendations: Continue IV antibiotics. Replace potassium. Encourage ambulation, incentive margaret metry, and IV antibiotics. Patient is doing clinically well. Hopefully discharge soon. /MODL Voice ID: [id number] Report ID: [id number]
--- NOTE | 2020-01-13 20:17 | EKG ---
Test Date: 2020-01-11 Test Time: 10:01:50 Licensed Home Inspector: EC MEASUREMENT RESULTS: Intervals: Rate: 99 [place]: 150 QRSD: 134 QT: 364 QTc: 467 [place]: P: 57 [place]: 150 QRS: 15 T: 23 INTERPRETIVE STATEMENTS: Normal sinus rhythm Right bundle branch block Abnormal ECG No previous ECG available for comparison Electronically Signed On 01-13-20 20:11:31 CDT by Derik San
[2020-01-13] MEDS: FUROSEMIDE 20 MG/ 2ML VIAL IV SCH (21:09)
--- NOTE | 2020-01-13 22:47 | PN ---
Patient had come in for perforated gallbladder, status post cholecystectomy approximately 3 days ago. She has a history of breast cancer and renal cancer. She was having intermittent supraventricular tachycardia. She was being treated with SVT. She remains in sinus rhythm PACs . Should be on beta-corey . DUONG/NAE Voice ID: [id number] Report ID: [id number]
[2020-01-14] MEDS: PIPER/TAZO/NS 3.375gm 3.375 GM/100 ML BAG IVPB SCH ×3 (01:15→16:54)
[2020-01-14 04:56] LABS: Absolute Lymphocytes (CBC) 0.7 K/uL (0.7-4.9); Basophils % 0.3 % (0-1.3); Lymphocytes % 14.3 % (15.3-44.8); RBC Red Blood Cell Count 2.64 M/uL (3.86-4.86)
[2020-01-14 05:04] LABS: BUN Blood Urea Nitrogen 5 mg/dL (7-18); Bicarbonate 27 mmol/L (21-32); Glucose Level 116 mg/dL (74-106); Magnesium 2.1 mg/dL (1.8-2.4); Sodium Level 142 mmol/L (136-145)
[2020-01-14] MEDS ORDERED: POTASSIUM CL SA 10 MEQ TAB PO ONE (09:00)
[2020-01-14] MEDS: ENOXAPARIN 40 MG/0.4 ML SQ SCH (09:13)
[2020-01-14] MEDS: FUROSEMIDE 20 MG/ 2ML VIAL IV SCH ×2 (09:13→16:54)
[2020-01-14] MEDS: PANTOPRAZOLE 40MG TABLET PO SCH (09:14)
--- NOTE | 2020-01-14 12:12 | PN ---
Date of Progress Note: 01/14/2020 Subjective: Patient is awake, alert, tolerating diet. Vitals stable. Afebrile. Laboratory data reviewed. Potassium low, being replaced. Abdomen benign. KAEL, serosanguineous fluid, minimal. Assessment: Status post open cholecystectomy. Recommendations: Continue antibiotics, replace electrolytes, hopefully discharge tomorrow. /MODL Voice ID: [id number] Report ID: [id number]
--- NOTE | 2020-01-14 12:33 | PN ---
Date of Progress Note: 01/14/2020 Ms. Jurado was admitted with acute cholecystitis, perforated gallbladder, status post emergency surgery . Has a history of breast cancer, on chemotherapy. Has a history of renal cancer status post nephre ctomy. She is still battling with low calcium, low potassium, anemia, but has not had any further chavarria praventricular tachycardia on beta-blockers. Echocardiogram is pending for today. She is not having any cardiac symptoms. I will see what her echocardiogram shows. Otherwise, I will continue her pre sent regimen. I will sign off her case for now. DUONG/NAE Voice ID: [id number] Report ID: [id number]
[2020-01-14 14:54] LABS: C.diff Antigen/Toxin Ag neg : Tox neg (NEG : NEG)
[2020-01-14 15:05] LABS: BUN Blood Urea Nitrogen 6 mg/dL (7-18); Bicarbonate 27 mmol/L (21-32); Glucose Level 149 mg/dL (74-106); Potassium 3.4 mmol/L (3.5-5.1); Sodium Level 141 mmol/L (136-145)
[2020-01-14] MEDS: CALCIUM CARBONATE 500 MG TAB PO SCH ×2 (15:05→20:28)
--- NOTE | 2020-01-14 16:06 | P.PN ---
Subjective Date of Service: 01/14/20 Primary Care Provider: Oncology-Dr. Julien; Surgery-Dr. Birch Chief Complaint: Acute cholecystitis Subjective: Improving, Doing well (Patient had some diarrhea earlier. Patient has been ruled out C diff. She is better.) Physical Examination - Vital Signs Temperature: 97.7 F Blood Pressure: 123/73 Pulse: 91 Respirations: 20 Pulse Ox (%): 97 - Physical Exam General: Alert, Cooperative HEENT: Atraumatic Neck: Supple Respiratory: Clear to auscultation bilaterally, Normal air movement Cardiovascular: Normal pulses, Regular rate/rhythm Gastrointestinal: Normal bowel sounds Neurological: Normal speech, Normal strength at 5/5 x4 extr, Normal tone, Normal affect - Studies Laboratory Data (last 24 hrs) 01/14/20 14:19: Sodium 141, Potassium 3.4 L, BUN 6 L, Creatinine 0.62, Glucose 149 H 01/14/20 04:31: Sodium 142, Potassium 3.0 L, BUN 5 L, Creatinine 0.63, Glucose 116 H, Magnesium 2.1 01/14/20 04:31: WBC 4.6, Hgb 8.5 L, Hct 25.0 L, Plt Count 206 Medications List Reviewed: Yes Assessment & Plan Discharge Plan: Home Plan to discharge in: 24 Hours Physician Review Additional Text: Impression: Sepsis secondary to Acute cholecystitis with cholelithiasis with noted perforated gallbladder status post open cholecystectomy Acute renal injury likely dehydration History of stage IV breast cancer on chemotherapy History of renal cell carcinoma with left nephrectomy Anemia of chronic disease Hypocalcemia SVT Suspect volume overload likely related to underlying congestive heart failure Abnormal tsh Hypokalemia Plan: Sepsis secondary to Acute cholecystitis with cholelithiasis with noted perforated gallbladder status post open cholecystectomy: Patient continues to do well. Continue to replace electrolytes. Patient given IV Lasix yesterday. She has improved. Patient with mild diarrhea today. C diff ruled out. Continue to monitor closely. Will discuss with surgery. Patient reports that surgery wanted her to wait one more day. Echo pending at this time pre Anticipate discharge tomorrow. Acute renal injury likely dehydration: Continue 1500 cc per day fluid restriction. On Lasix for suspected underlying CHF. Echo pending at this time peer History of stage IV breast cancer on chemotherapy: Will discuss further with Oncology. Await further recommendations History of renal cell carcinoma with left nephrectomy: Will need to monitor renal function closely. Anemia of chronic disease: Will monitor closely. Hypocalcemia: Lab pending. Low calcium again peer will provide calcium gluconate. SVT: Patient had episode of SVT. Case discussed with cardiology. Will obtain echocardiogram to further evaluate. Suspect volume overload likely related to underlying congestive heart failure: Overall improved. Continue to wean off oxygen. Echocardiogram pending. Will adjust IV Lasix to oral. Abnormal tsh: Tsh abnormal but with normal free T4. Will recommend to recheck lab in 2-4 weeks to monitor her progress. If this continues to be abnormal this will need to be further evaluated as an outpatient. Hypokalemia: Will continue to replace and monitor. Time Spent Managing Pts Care (In Minutes): 55
[2020-01-14] MEDS: POTASS/SODIUM PHOSPHATE 1 PKT POWD.PACK PO SCH ×2 (16:54→20:25)
[2020-01-14 21:38] VITALS: O2SAT 96
[2020-01-15] MEDS: PIPER/TAZO/NS 3.375gm 3.375 GM/100 ML BAG IVPB SCH ×2 (00:51→09:08)
[2020-01-15 06:52] LABS: Phosphorus 1.4 mg/dL (2.5-4.9); Potassium 3.2 mmol/L (3.5-5.1)
[2020-01-15] MEDS ORDERED: POTASSIUM CL SA 10 MEQ TAB PO ONE (08:00)
[2020-01-15] MEDS: CALCIUM CARBONATE 500 MG TAB PO SCH (09:09)
[2020-01-15] MEDS: POTASS/SODIUM PHOSPHATE 1 PKT POWD.PACK PO SCH ×2 (09:09→12:38)
[2020-01-15] MEDS: FUROSEMIDE 20 MG/ 2ML VIAL IV SCH (09:09)
[2020-01-15] MEDS: PANTOPRAZOLE 40MG TABLET PO SCH (09:09)
[2020-01-15] MEDS: ENOXAPARIN 40 MG/0.4 ML SQ SCH (09:09)
--- NOTE | 2020-01-15 09:22 | P.DS ---
Admission Date: 01/09/20 Discharge Date: 01/15/20 Primary Care Provider: Oncology-Dr. Julien; Surgery-Dr. Birch Disposition: DC HOME/HOME HEALTH CARE Discharge Condition: FAIR Reason for Admission: Acute cholecystitis Consultations: General surgery-Dr. Birch Procedures: Diagnostic laparoscopy, exploratory laparotomy, open cholecystectomy, umbilical hernia repair. Brief History of Present Illness: 64-year-old woman with a history of advanced breast cancer, history of renal cell carcinoma status post nephrectomy was transferred from [facility] because of right upper quadrant abdominal pain and CT abdomen findings of acute cholecystitis. Patient had no leukocytosis and did not meet criteria for sepsis. She has been undergoing chemotherapy. Hospital Course: She was admitted to the medical floor and started on IV Zosyn and Flagyl. Patient was seen by Dr. Birch, she underwent a diagnostic laparoscopy followed by open cholecystectomy for perforated gallbladder, and umbilical hernia repair. Patient was kept intubated after the procedure and monitored in the ICU. Patient experienced an episode of SVT after surgery and also developed volume overload. She was treated with IV Lasix for the volume overload. Cardiology was also consulted, patient was seen by Dr. San. SVT was brief followed by sinus rhythm. Electrolyte abnormalities were corrected. Patient was extubated the following day and transfered to the medical floor where she continued to improve clinically. She was initially requiring supplemental oxygen. Today patient has tolerated room air at rest and with activity with good oxygen saturation. Patient has tolerated her meals. She still has some shortness of breath with exertion. She is deemed clinically stable for discharge. Dr. Birch has prescribed oral ciprofloxacin to continue treatment for the cholecystitis with perforation. She is discharged with home health. Vital Signs/Physical Exam: Temp Pulse Resp BP Pulse Ox 98.5 F 92 H 18 121/65 98 01/15/20 04:00 01/15/20 04:00 01/15/20 04:00 01/15/20 04:00 01/15/20 04:00 General: Alert, In no apparent distress, Oriented x3 HEENT: Normocephalic, Mucous membr. moist/pink Neck: Supple Respiratory: Clear to auscultation bilaterally, Normal air movement Cardiovascular: No edema, Regular rate/rhythm, Normal S1 S2 Capillary refill: <2 Seconds Gastrointestinal: Normal bowel sounds, Non-distended, Other (Abdominal binder in place. KAEL drain with minimal output.) Musculoskeletal: No swelling, No erythema Integumentary: No rashes Laboratory Data at Discharge: WBC 4.6 K/uL (4.3-10.9) 01/14/20 04:31 Hgb 8.5 g/dL (12.0-15.0) L 01/14/20 04:31 Hct 25.0 % (36.0-45.0) L 01/14/20 04:31 Plt Count 206 K/uL (152-406) 01/14/20 04:31 PT 12.9 SECONDS (9.5-12.5) H 01/10/20 05:43 INR 1.10 01/10/20 05:43 APTT 25.6 SECONDS (24.3-36.9) 01/10/20 05:43 Sodium 142 mmol/L (136-145) 01/15/20 06:23 Potassium 3.2 mmol/L (3.5-5.1) L 01/15/20 06:23 BUN 7 mg/dL (7-18) 01/15/20 06:23 Creatinine 0.68 mg/dL (0.55-1.3) 01/15/20 06:23 Glucose 122 mg/dL (74-106) H 01/15/20 06:23 Phosphorus 1.4 mg/dL (2.5-4.9) L 01/15/20 06:23 Magnesium 2.1 mg/dL (1.8-2.4) 01/14/20 04:31 Total Bilirubin 0.6 mg/dL (0.2-1.0) 01/10/20 05:43 AST 18 U/L (15-37) 01/10/20 05:43 ALT 44 U/L (12-78) 01/10/20 05:43 Alkaline Phosphatase 51 U/L (45-117) 01/10/20 05:43 Lipase 22 U/L (73-393) L 01/10/20 05:43 Home Medications: Ondansetron [Ondansetron Odt] 1 tab PO PRN PRN 01/09/20 traMADol HCL [Ultram*] 50 mg PO Q4HP PRN 01/09/20 Ciprofloxacin HCl [Cipro 500 MG Tablet] 500 mg PO BID 10 Days #20 tab 01/15/20 Codeine/APAP [Tylenol W/Codeine #3 tab] 1 tab PO Q4HP PRN 5 Days #10 tab 01/15/20 New Medications: Codeine/APAP [Tylenol W/Codeine #3 tab] 1 tab PO Q4HP PRN 5 Days #10 tab PRN Reason: Pain Scale 5-7 (Moderate) Ciprofloxacin HCl [Cipro 500 MG Tablet] 500 mg PO BID 10 Days #20 tab Patient Discharge Instructions: May shower. Keep wound clean and dry Diet: Regular Activity: No lifting more than 10 lbs Followup: Beto Birch MD [ACTIVE - CAN ADMIT] - 1 Week (Call to make an appointment. ) Time spent managing pt's care (in minutes): 40
--- NOTE | 2020-01-15 09:51 | ECHO ---
HEIGHT: 5 ft 2 in WEIGHT: 227 lb 14.4 oz DATE OF STUDY: 01/14/[address]: Randy Cheney DO 2-DIMENSIONAL: YES M.MODE: YES DOPPLER: YES COLOR FLOW: YES TDS: YES PORTABLE: DEFINITY: BUBBLE STUDY: DIAGNOSIS: EVALUATE FOR CONGESTIVE HEART FAILURE CARDIAC HISTORY: CATHERIZATION: NO SURGERY: NO PROSTHETIC VALVE: NO PACEMAKER: NO MEASUREMENTS (cm) DIASTOLIC (NORMALS) SYSTOLIC (NORMALS) IVSd 1.1 (0.6-1.2) LA Diam 3.3 (1.9-4.0) LVEF 77% LVIDd 4.3 (3.5-5.7) LVIDs 2.3 (2.0-3.5) %FS 46% LVPWd 1.3 (0.6-1.2) Ao Diam 2.7 (2.0-3.7) 2 DIMENSIONAL ASSESSMENT: RIGHT ATRIUM: NORMAL LEFT ATRIUM: NORMAL RIGHT VENTRICLE: NORMAL LEFT VENTRICLE: NORMAL TRICUSPID VALVE: NORMAL MITRAL VALVE: NORMAL PULMONIC VALVE: NORMAL AORTIC VALVE: NORMAL PERICARDIAL EFFUSION: NONE AORTIC ROOT: NORMAL LEFT VENTRICULAR WALL MOTION: NORMAL DOPPLER/COLOR FLOW: NORMAL COMMENTS: TECHNICALLY DIFFICULT STUDY. NORMAL LEFT VENTRICULAR SIZE AND FUNCTION. NO WALL MOTION ABNORMALITY. NO EFFUSION. TECHNOLOGIST: CHARLES SLAUGHTER
[2020-01-15 13:14] VITALS: BP 149/73; TEMP 97
== END 2020-01-15 14:41 | disposition home health service (06) | DRG 853 ==
LOC: 2ND 20:51 → 3RD-ICU 01-10 16:28 → 2ND 01-12 11:30
PROVIDERS: ADMIT Hospitalist; ATTEND Internal Medicine
PROC: 0WQF0ZZ Repair Abdominal Wall, Open Approach (ICD-10-PCS; 2020-01-10)
PROC: 0W9G00Z Drainage of Peritoneal Cavity with Drainage Device, Open Approach (ICD-10-PCS; 2020-01-10)
PROC: 5A1935Z Respiratory Ventilation, Less than 24 Consecutive Hours (ICD-10-PCS; 2020-01-10)
PROC: 0BH17EZ Insertion of Endotracheal Airway into Trachea, Via Natural or Artificial Opening (ICD-10-PCS; 2020-01-10)
PROC: 0FT40ZZ Resection of Gallbladder, Open Approach (ICD-10-PCS; principal; 2020-01-10 11:45)
PROC: 0FJ44ZZ Inspection of Gallbladder, Percutaneous Endoscopic Approach (ICD-10-PCS; 2020-01-10 11:45)
DX: A41.9 Sepsis, unspecified organism (principal); J96.00 Acute respiratory failure, unspecified whether with hypoxia or hypercapnia; I50.33 Acute on chronic diastolic (congestive) heart failure; K80.00 Calculus of gallbladder with acute cholecystitis without obstruction; K82.A2 Perforation of gallbladder in cholecystitis; I97.191 Other postprocedural cardiac functional disturbances following other surgery; I47.1 Supraventricular tachycardia; N17.9 Acute kidney failure, unspecified; Z79.891 Long term (current) use of opiate analgesic; Z79.899 Other long term (current) drug therapy; E86.0 Dehydration; C50.919 Malignant neoplasm of unspecified site of unspecified female breast; Z85.528 Personal history of other malignant neoplasm of kidney; Z90.5 Acquired absence of kidney; D63.8 Anemia in other chronic diseases classified elsewhere; E83.51 Hypocalcemia; R94.6 Abnormal results of thyroid function studies; E87.6 Hypokalemia; K42.9 Umbilical hernia without obstruction or gangrene; Z87.891 Personal history of nicotine dependence; E88.09 Other disorders of plasma-protein metabolism, not elsewhere classified
CPT/HCPCS: 36415; 71045; 71046; 74018; 80048; 80053; 82306; 82310; 82330; 82805; 83690; 83735; 83970; 84100; 84132; 84439; 84443; 85025; 85610; 85730; 87324; 87449; 88302; 88304; 93005; 93306; 94002; 94003; 96367; 96375; 96413; 97116; 97161; 97530; C9113; J0330; J0610; J1100; J1170; J1200; J1642; J1650; J1940; J2370; J2405; J2543; J2704; J2710; J3010; J7030; J7040; J9267

== ENCOUNTER 2020-03-12 06:31 | Day surgery (SDC) | payer OTHER ==
--- NOTE | 2020-03-05 09:39 | RAD REPORT ---
EXAM DESCRIPTION: RAD - Chest Pa And Lat (2 Views) - 03/05/2020 9:19 am CLINICAL HISTORY: pre op Chest pain. COMPARISON: Chest Pa And Lat (2 Views) dated 01/13/2020; Chest Single View dated 01/12/2020; Chest Sin gle View dated 01/11/2020; Chest Single View dated 01/10/2020 FINDINGS: The lungs are clear. The heart is upper limit of normal in size. No displaced fractures. L eft-sided venous catheter tip in the SVC.
[2020-03-05 10:10] LABS: Basophils % 0.6 % (0-1.3); Hematocrit 36.8 % (36.0-45.0); Lymphocytes % 28.6 % (15.3-44.8); MPV 10.7 fL (7.6-11.3); RBC Red Blood Cell Count 3.92 M/uL (3.86-4.86)
[2020-03-05 10:14] LABS: Potassium 4.2 mmol/L (3.5-5.1)
--- NOTE | 2020-03-06 06:40 | EKG ---
Test Date: 2020-03-05 Test Time: 08:52:24 Solicitor Patent: LOIS MEASUREMENT RESULTS: Intervals: Rate: 70 [place]: 178 QRSD: 136 QT: 424 QTc: 457 [place]: P: 64 [place]: 178 QRS: 63 T: 63 INTERPRETIVE STATEMENTS: Normal sinus rhythm Right bundle branch block Abnormal ECG Compared to ECG 01/11/2020 10:01:50 No significant changes Electronically Signed On 03-06-20 06:37:44 CDT by Derik San
--- OUTSIDE RECORDS SUMMARY | 2020-03-12 06:34 | XMS REPORT | Clinical Summary ---
:1955 Author Organization [facility] Address [address] [place] [address] Care Team Providers Name Role Phone Pcp Primary Care Provider Unavailable Allergies No Known Allergies Medications Medication Sig Dispensed Refills Start Date End Date Status letrozole (FEMARA) Take 2.5 mg by 0 Active 2.5 mg tablet mouth daily. acetaminophen-codein Take 1 tablet by 30 tablet 0 08/23/2019 1 11/03/2018 e (TYLENOL #3) mouth every 4 300-30 mg per tablet (four) hours as needed for up to 10 days. Max Daily Amount: 6 tablets docusate sodium Take 1 capsule 30 capsule 0 08/23/2019 019 (COLACE) 100 MG (100 mg total) capsule by mouth 2 (two) times daily for 10 days. Active Problems Problem Noted Date Renal mass 08/21/2019 Encounters Date Type Specialty Care Team Description 08/21/2019 Anesthesia Event Columba Albright MD 08/21/2019 Surgery Alfredito Ratliff LAPAROSCOPY,NE PHRECT MD SINGH Blackwood 08/21/2019 - Hospital Encounter General Internal Alfredito Ratliff 08/23/2019 Medicine MD Jaison 08/19/2019 Hospital Encounter Pre-Admission Alfredito Ratliff MD 08/19/2019 Orders Only Urology Alfredito Ratliff MD after 03/12/2019 Social History Tobacco Use Types Packs/Day Years Used Date Former Smoker 10 17 Quit: 07/2019 Smokeless Tobacco: Never Used Tobacco Cessation: Counseling Given: Yes Alcohol Use Drinks/Week oz/Week Comments No Alcohol Habits Answer Date Recorded How often do you have a drink containing alcohol? Never 08/19/2019 How many drinks containing alcohol do you have on a typical Not asked day when you are drinking? How often do you have six or more drinks on one occasion? No t asked Sex Assigned at Date Recorded Not on file Job Start Date Occupation Industry Not on file Not on file Not on file Travel History Travel Start Travel End No recent travel history available. Last Filed Vital Signs Vital Sign Reading Time Taken Blood Pressure 135/63 08/23/2019 5:05 PM [employer]AY WORKER Pulse 87 08/23/2019 5:05 PM [employer]AY WORKER Temperature 35.9 C (96.7 F) 08/23/2019 5:05 PM RELAY WORKER Respiratory Rate 18 08/23/2019 5:05 PM RELAY WORKER Oxygen Saturation 95% 08/23/2019 5:05 PM RELAY WORKER Inhaled Oxygen Concentration - - Weight 100.2 kg (220 lb 14.4 oz) 08/21/2019 10: 20 AM RELAY WORKER Height 157.5 cm (5' 2") 08/21/2019 10:20 AM RELAY WORKER Body Mass Index 40.4 08/21/2019 10:20 AM RELAY WORKER Plan of Treatment Not on file Procedures Procedure Name Priority Date/Time Associated Comments Diagnosis RHYTHM STRIP - SCAN 08/27/2019 2:00 PM RELAY WORKER HEMOGLOBIN AND MARI 08/23/2019 12:51 Results f or this HEMATOCRIT PM RELAY WORKER procedure are i n the results section. HEMOGLOBIN AND Routine 08/23/2019 6:17 Results f or this HEMATOCRIT AM RELAY WORKER procedure are i n the results section. BASIC METABOLIC STAT 08/23/2019 6:17 Results for this PANEL (7) AM RELAY WORKER procedure are i n the results section. TRANSFUSION SERVICE 08/22/2019 5:51 REPORT - SCAN PM RELAY WORKER HEMOGLOBIN AND Routine 08/22/2019 5:18 Results f or this HEMATOCRIT AM RELAY WORKER procedure are i n the results section. BASIC METABOLIC STAT 08/22/2019 5:18 Results for this PANEL (7) AM RELAY WORKER procedure are i n the results section. HEMOGLOBIN AND Routine 08/21/2019 6:32 Results f or this HEMATOCRIT PM RELAY WORKER procedure are i n the results section. BASIC METABOLIC STAT 08/21/2019 6:32 Results for this PANEL (7) PM [employer]AY WORKER procedure are i n the results section. TISSUE EXAM AP Routine 08/21/2019 3:35 Results for this PM RELAY WORKER procedure are i n the results section. LAPAROSCOPY,NEPHRECT 08/21/2019 1:00 Left renal mass SINGH PM RELAY WORKER Case Notes 4 HRS Special Needs (3D DEFLECTABLE LAPAROSCOPE, AIR SEAL) ABORH, MANUAL STAT 08/21/2019 10:55 AM RELAY WORKER Res ults for this procedure are i n the results section . TRANSFUSION SERVICE REPORT 08/20/2019 5:54 PM RELAY WORKER - SCAN CBC W/PLT COUNT & AUTO Routine 08/19/2019 4:02 PM RELAY WORKER Results for this DIFFERENTIAL procedure are i n the results section . TYPE AND SCREEN, AUTOMATED Routine 08/19/2019 4:02 PM RELAY WORKER Results for this procedure are i n the results section . CBC W/PLT COUNT & AUTO Routine 08/19/2019 4:02 PM RELAY WORKER Results for this DIFFERENTIAL procedure are i n the results section . URINALYSIS W/ MICROSCOPIC Routine 08/19/2019 4:02 PM RELAY WORKER Results for this procedure are i n the results section . BASIC METABOLIC PANEL (7) Routine 08/19/2019 4:02 PM RELAY WORKER Results for this procedure are i n the results section . PROTHROMBIN TIME/INR Routine 08/19/2019 4:02 PM RELAY WORKER Results for this procedure are i n the results section . APTT Routine 08/19/2019 4:02 PM RELAY WORKER Resu lts for this procedure are i n the results section . URINE CULTURE Routine 08/19/2019 4:02 PM RELAY WORKER Res ults for this procedure are i n the results section . after 03/12/2019 Results RHYTHM STRIP - SCAN (08/27/2019 2:00 PM RELAY WORKER) Narrative Performed At This result has an attachment that is no t available. Hemoglobin and hematocrit (08/23/2019 12:51 PM RELAY WORKER)Only the most recent of4 resultswithin the time period is included. Hemoglobin 10.6 (L) 11.2 - 15.7 GM/DL [facility] Hematocrit 33.8 (L) 34.1 - 44.9 % [facility] Specimen Blood Performing Organization Address City/State/Zipcode Phone Number [facility] [address] [place] [address] CENTER Basic Metabolic Panel (08/23/2019 6:17 AM RELAY WORKER)Only the most recent of4 results within the time period is included. Sodium 134 (L) 136 - 145 meq/L [facility] Potassium 4.4 3.5 - 5.1 meq/L [facility] Chloride 106 98 - 107 meq/L [facility] CO2 23 22 - 29 meq/L [facility] BUN 16 7 - 21 mg/dL [facility] Creatinine 0.90 0.57 - 1.25 mg/dL [facility] Glucose 100 70 - 105 mg/dL [facility] Calcium 8.3 (L) 8.4 - 10.2 mg/dL [facility] EGFR 63Comment: ESTIMATED GFR IS mL/min/1.73 sq m [facility] NOT ACCURATE CREATININE ME DICAL CENTER CLEARANCE IN PREDICTING GLOMERULAR FILTRATION RATE. ESTIMATED GFR IS NOT APPLICABLE FOR DIALYSIS PATIENTS. Specimen Blood Performing Organization Address City/State/Zipcode Phone Number [facility] [address] [place] [address] CENTER TRANSFUSION SERVICE REPORT - SCAN (08/22/2019 5:51 PM RELAY WORKER)Only the most recent of2 resultswithin the time period is included. Narrative Performed At This result has an attachment that is no t available. Tissue Exam (08/21/2019 3:35 PM RELAY WORKER) Case Report Surgical Pathology Report Case: [id number] [facility] Authorizing Provider:Alfredito Davenport MD Collected: 08/21/2019 1712 [facility] Ordering Location: [facility] PERIOPERATIVE Received:08/22/2019 1041 SERVICES Pathologist: Khris Morales MD Specimens: A) - Kidney, Left B) - Lymph Node, Retroperitoneal lymph nodes DIAGNOSIS A. 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 LYMPH NODE, RETROPERITONEAL, DISSECTION: - ELEVEN LYMPH NODES, NEGATIVE FOR METASTAT IC CARCINOMA (0/11) Signing Pathologist Direct Phone Line: COMMENT A. By immunohistochemistry, the tumor cells are patchily positive for CK7, CD10 and AMACR. The findings are not entirely specific. With the morphology, the overall features are most compatible with clear cell type. [facility] The majority of the tumor ce lls are nuclear grade 2, while very focally the tumor cells show features of nuclear grade 3. SYNOPTIC REPORT KIDNEY: Nephrectomy(Kidney Res - All Specime ns) [facility] SPECIMEN Procedure:Radical nephrectomy Specimen Laterality:Left TUMOR Tumor Site:Upper pole Tumor Site:Middle Histologic Type:Clear cell renal ce ll carcinoma Histologic Grade (WHO / ISUP Grade):G3: Nucleoli conspicuous and eosinophilic at 100x magnification Tumor Size:Grea test dimension in Centimeters (cm): 9.1 Centimeters (cm) Additional Dimension in Centime ters (cm):8.3 Centimeters (cm) Additional Dimension in Centimeters (cm ):8 Centimeters (cm) Tumor Focality:Unifocal Tumor Extent: Tumor Extension:Tumor limited t o kidney Accessory Findings: Sarcomatoid Features:Not identi fied Rhabdoid Features:Not identifie d Tumor Necrosis:Not identified Lymphovascular Invasion:Not diana ntified MARGINS Margins:Uninvolved by invasive carc inoma LYMPH NODES Number of Lymph Nodes Involved:0 Number of Lymph Nodes Examined:11 PATHOLOGIC STAGE CLASSIFICATION (pTNM, AJCC 8th Edition) TNM Descriptors:Not applicable Primary Tumor (pT):pT2a Regional Lymph Nodes (pN):pN0 ADDITIONAL FINDINGS Pathologic Findings in Nonneoplastic Kidney :None identified CPT Code(s) 71943 X 2, 84489, 15634 X 2 [facility] CLINICAL HISTORY Left renal mass [facility] ER SPECIMEN SOURCE A. Kidney, left. B. [facility] Retroperitoneal lymph node [facility] GROSS DESCRIPTION A. Received fresh labeled wi th the patient's name, accession number and "kidney, left" is a 619 gm, 18 x 8.5 x 8.5 cm radical nephrectomy with a moderate amount of attached perinephric fat. An adrenal g [facility] land is not present. The rowan dobbs measures 14 x 8 x 8.3 cm. There is an attached unremarkable ureter measuring 10.5 cm in length and 0.3 cm in diameter. [facility] The kidney is opened to reve al a well-circumscribed, heterogenous, huddleston- yellow, johnson, partially hemorrhagic and necrotic mass in the upper to mid pole measuring 9.1 x 8.3 x 8 cm. The mass abuts the rowan dobbs capsule and vein, but it does not invade through either one. The mass abuts the renal sinuS, but it does not invade through it. The remaining parenchyma is red-brown and smooth. The corticomedullary junction is well demarcated . Lymph nodes are not present in the hilum. Host sections are submitted. Ink code: Blue-outer surface of kidney Section code: A1, ureter and vascular margins, en face A2-A3, mass to kidney capsule and perinephric fa t A4, mass to vein A5-A7, mass to renal sinus A8, mass to hilum A9, promotional representative of mass with scarred area, mi d lobe A10, mass to uninvolved parenchyma, mid lobe A11-A12, uninvolved parenchyma B. Received fresh labeled wi th the patient's name, accession number and "retroperitoneal lymph nodes" is a 3.5 x 2.5 x 1.5 cm aggregate of multiple irregular, johnson-yellow, adipose tissue fragments. The s pecimen is sectioned to reve al multiple pink lymph nodes ranging from 0.2-0.9 cm. The specimen is entirely submitted. Section code: B1-B4, one possible lymph node in each cassette B5, five possible intact lymph nodes B6-B8, remainder of specimen CG/ew SPECIAL STUDIES The interpretation of this c ase included the use of immunohistochemistry or special stains. [facility] Please see the immunohistochemistry results in t he COMMENT section. [facility] Control Slides Examined: In -house known positive controls were evaluated along with the test tissue. These control slides run alongside of the patients sample show appropriate staining. Internal posit brielle and negative controls when available are urszulacesia ramirez Immunohistochemistry technic al testing was performed at [facility], Pathology Laboratory where it was developed and its performance characteristics were determined. It has not be en cleared or approved by [facility] U.S. Food and Drug Administration. The FDA has determined that such clearance or approval is not necessary. The test is used for clinical purposes. It should not be regarde d as investigational or for research. This laboratory is certified under the Clinical Laboratory Improvement Amendments of 1988 (CLIA-88) as qualified to perform high complexity clinical laboratory testing. Specimen Tissue Tissue - Structure of lymph node (body s tructure) Performing Organization Address [facility] Phone Number [address] [phone] CENTER ABORH, manual (08/21/2019 10:55 AM RELAY WORKER) ABO Grouping A [facility] Rh Factor POS [facility] Specimen Blood Performing Organization Address [facility] Phone Number [address] [address] Type and screen, automated (08/19/2019 4:02 PM RELAY WORKER) ABO/RH AUTOMATED (BEAKER) A POSITIVE [facility] Ab Scrn NEGATIVE [facility] Specimen Blood Performing Organization Address [facility] Phone Number [address] [address] CBC with platelet count + automated diff (08/19/2019 4:02 PM RELAY WORKER) WBC 10.0 3.5 - 10.5 K/L [facility] RBC 4.18 3.93 - 5.22 M/L [facility] Hemoglobin 12.8 11.2 - 15.7 GM/DL [facility] Hematocrit 39.3 34.1 - 44.9 % [facility] MCV 94.0 79.4 - 94.8 fL [facility] MCH 30.6 25.6 - 32.2 pg [facility] MCHC 32.6 32.2 - 35.5 GM/DL [facility] RDW 12.7 11.7 - 14.4 % [facility] Platelets 224 150 - 450 K/CU MM [facility] MPV 11.5 9.4 - 12.3 fL [facility] nRBC 0 0 - 0 /100 WBC [facility] % Neutros 52 % [facility] % Lymphs 36 % [facility] CENTER % Monos 9 % [facility] % Eos 3 % [facility] % Baso 1 % [facility] # Neutros 5.20 1.56 - 6.13 K/L [facility] # Lymphs 3.56 1.18 - 3.74 K/L [facility] # Monos 0.91 (H) 0.24 - 0.36 K/L [facility] # Eos 0.26 0.04 - 0.36 K/L [facility] # Baso 0.05 0.01 - 0.08 K/L [facility] Immature Granulocytes-Relative 0 0 - 1 % C [facility] Specimen Blood Performing Organization Address City/State/Zipcode Phone Number [facility] [address] [place] [address] CENTER Urinalysis w/Microscopic (08/19/2019 4:02 PM RELAY WORKER) Color, UA Yellow [facility] Clarity, UA Clear [facility] Specific [place], UA 1.027 1.001 - 1.035 [facility] pH, UA 7.0 5.0 - 8.[address] [facility] Protein, UA 10 mg/dL (A) Negative [facility] Glucose, UA Negative Negative [facility] Ketones, UA Trace (A) Negative [facility] Bilirubin, UA Negative Negative [facility] Blood, UA Negative Negative [facility] Nitrite, UA Negative Negative [facility] Leukocytes, UA Negative Negative [facility] Urobilinogen, UA 6.0 (H) 0.2 - 1.0 mg/dL [facility] RBC, UA 1 /HPF [facility] WBC, UA 1 /HPF [facility] Bacteria, UA Rare [facility] Mucus Rare [facility] Squam Epithel, UA 2 /HPF [facility] Ca Oxalate Chantel, UA Many [facility] Specimen Source [facility] Specimen Urine Performing Organization Address City/State/Zipcode Phone Number [address] [address] [place] aPTT (08/19/2019 4:02 PM RELAY WORKER) PTT 27.7 22.5 - 36.0 seconds [facility] Specimen Blood Performing Organization Address City/State/Zipcode Phone Number [address] [address] [place] Prothrombin time/INR (08/19/2019 4:02 PM RELAY WORKER) Protime 13.0 11.9 - 14.2 seconds [facility] INR 1.0 <=5.[address] [facility] Specimen Blood Narrative Performed At Effective 02/13/2019: PT Reference Range [facility] Change New: 11.9-14.2Previous: 11.7-14.7 RECOMMENDED COUMADIN/WARFARIN INR THERAPY RANGES STANDARD DOSE: 2.0-3.0Includes: PROPHYLAXIS for venous thrombosis, systemic embolization; TREATMENT for venous thrombosis and/or pulmonary embolus. HIGH RISK: Target INR is 2.5-3.5 for patients wiht mechanical heart valves. Performing Organization Address City/[facility] Phone Number [address] [address] [place] Urine culture (08/19/2019 4:02 PM RELAY WORKER) Result 80-89,000 col/mL skin david [facility] Specimen Urine Performing Organization Address [facility] Phone Number [place] [phone] [place] [address] CENTER after 03/12/2019 Insurance Payer Benefit Plan / Group Subscriber ID Type Phone A ddress [facility] MEDICARE UNITED MEDICARE HMO xxxxxxxxx MGD CARE Advance Directives For more information, please contact:[address] [phone] Code Status Date Activated Date Inactivated Comments Full Code 08/21/2019 8:31 PM 08/23/2019 8:10 PM This code status was determined by: Patient
--- OUTSIDE RECORDS SUMMARY | 2020-03-12 06:36 | XMS REPORT | Continuity of Care Document ---
:1955 Author Organization [facility] t Address [address] [place] [address] Care Team Providers Name Role Phone Pcp Primary Care Physician Unavailable Jaison Ratliff MD Attending Clinician JAISON RATLIFF Attending Clinician Unavailable Jaison Ratliff MD Attending Clinician Rashad Albright MD Attending Clinician JAISON RATLIFF Admitting Clinician Unavailable Payers Payer Name Policy Type Policy Number Effective Date Expiration Date S [facility] xxxxxxxxx [facility] - MEDICARE [facility] H[facility]xxxxxxxxx Problems Condition Condition Condition Status Onset Resolution Last Treating Co mments Source Name Details Category Date Date Treatment Clinician Date Renal mass Renal mass Disease Active 2018-[address] 2- kes - 00:00: Medical 00 Center Allergies, Adverse Reactions, Alerts This patient has no known allergies or adverse reactions. Social History Social Habit Start Date Stop Date Quantity Comments Source History of tobacco Current smoker [facility] - use Medical Center History [facility] - Alcohol Std Drinks Medica l Center History [facility] - Alcohol Binge Medical Rosa M ter Sex Assigned At [facility] Cigarettes smoked 2019-08-22 2019-08-22 [facility] - current (pack per 00:00:00 00:00:00 Medical Center day) - Reported Cigarette 2019-08-22 2019-08-22 [facility] - pack-years 00:00:00 00:00:00 Medical Center History SDOH 2019-08-19 2019-08-19 1 [facility] - Alcohol Frequency 00:00:00 00:00:00 Medical Center Smoking Status Start Date Stop Date Source Former smoker 2019-08-22 00:00:00 2019-08-22 00:00:00 [facility] Medications Ordered Filled Start Stop Current Ordering Indication Dosage Frequency Signature Comments Components Source Medication Medication Date Date Medication? Clinician (SIG) Name Name acetaminoph 2018-09 2019- No 1{tbl} Take [address] en-codeine 10-24 tablet by [facility] - (TYLENOL 00:00: 23:59 mouth Medical #3) 300-30 00 :00 every 4 Center mg per (four) tablet hours as needed for up to 10 days. Max Daily Amount: 6 tablets docusate 2018-09- No 100mg Q.5D Take 1 [facility] sodium 10-24 capsule kes - (COLACE) 00:00: 23:59 (100 mg Medic al 100 MG 00 :00 total) by [place] capsule mouth 2 (two) times daily for 10 days. letrozole 2018-09 Yes 2.5mg QD Take 2.[address] (FEMARA) 2-02 mg by [facility] 2.5 mg 15:03: mouth Medical tablet 03 daily. Center Vital Signs Vital Name Observation Time Observation Value Comments Source Systolic blood 2019-08-23 17:05:00 135 mm[Hg] [facility] Diastolic blood 2019-08-23 17:05:00 63 mm[Hg] [facility] S t [facility] Heart rate 2019-08-23 17:05:00 87 /min [facility] Body temperature 2019-08-23 17:05:00 35.94 Reyna [facility] Respiratory rate 2019-08-23 17:05:00 18 /min [facility] Oxygen saturation in 2019-08-23 17:05:00 95 /min [facility] Arterial blood by [facility] nter Pulse oximetry Body height 2019-08-21 10:20:[address] [facility] Body weight Measured 2019-08-21 10:20:00 100.2 kg [facility] BMI 2019-08-21 10:20:00 40.40 kg/m2 [facility] Procedures Procedure Date / Time Performed Performing Clinician Sour e RHYTHM STRIP - SCAN 2019-08-27 14:00:03 Provider, [facility] HEMOGLOBIN AND 2019-08-23 12:51:00 Juan Ventura [facility] BASIC METABOLIC PANEL 2019-08-23 06:17:00 Sanket Whiting [address] HEMOGLOBIN AND 2019-08-23 06:17:00 [facility] TRANSFUSION SERVICE 2019-08-22 17:51:11 Provider [facility] BASIC METABOLIC PANEL 2019-08-22 05:18:00 Sanket Whiting [address] HEMOGLOBIN AND 2019-08-22 05:18:00 [facility] BASIC METABOLIC PANEL 2019-08-21 18:32:00 Sanket Whiting [address] HEMOGLOBIN AND 2019-08-21 18:32:00 Sanket Whiting [facility] TISSUE EXAM 2019-08-21 15:35:00 Alfredito Ratliff [facility] LAPAROSCOPY,NEPHRECTOMY 2019-08-21 13:00:00 Alfredito Ratliff [facility] ABORH, MANUAL 2019-08-21 10:55:00 Nichole Hernandez [facility] TRANSFUSION SERVICE 2019-08-20 17:54:05 Provider, [facility] URINE CULTURE 2019-08-19 16:02:00 Alfredito Ratliff [facility] APTT 2019-08-19 16:02:00 Alfredito Ratliff [facility] PROTHROMBIN TIME/INR 2019-08-19 16:02:00 Alfredito Ratliff [facility] BASIC METABOLIC PANEL 2019-08-19 16:02:00 Alfredito Ratliff [address] URINALYSIS W/ 2019-08-19 16:02:00 Alfredito Ratliff [facility] TYPE AND SCREEN, 2019-08-19 16:02:[address] [facility] CBC W/PLT COUNT & AUTO 2019-08-19 16:02:00 Alfredito Ratliff [facility] Encounters Start End Encounter Admission Attending Care Care Encounter Source Date/Time Date/Time Type Type Clinicians Facility Department ID 2020-03-03 2020-03-03 Office Ratliff ÁNGEL [id number] 20 11:30:59 12:23:35 Visit Alfredito Blackwood AMBULATOR [id number] Y [id number] 2019-08-01 2019-08-01 Outpatient [facility]BL MHBL 7500 [facility]BL 08:26:00 08:26:00 Results Test Description Test Time Test Comments Results Result Comments Source Tissue Exam 2019-08-31 14:46:00 Test Item Value Reference Range Interpretation Comme nts Case Report (test code = 104) Surgical Pathology Report Case: [id number] Authorizing Provider: Alfredito Ratliff MD Collected: 08/21/2019 1712 Ordering Location: [facility] PERIOPERATIVE Received: 08/22/2019 1041 SERVICES Pathologist: Khris Morales MD Specimens: A) - Kidney, Left B) - Lymph Node, Retroperitoneal lymph nodes DIAGNOSIS (test code = 3220) [id number]XtAnXwXi pcdW RdLDlwyiJaPJzfa4KsW4ArQnMnLNbhldLyFBUyFztj dnpeWGVxQNO9qkPpZCCcEVhrRJBeACigNz8zkSMwxK clMbHwRZPvm1xamrOLkkoyqYe2o6kjLYNsCiL9oDLx KSabF8krqyGvtMMjQHRnWCb9pF83KKIspS4raTXmBF hwewYmDqV3TKgyTQGtFsV2XOFxgLWmRPFrW6npDCHj MPyiEKVaDBmqvIPrOLU0nMzvr1J1xVVmjHRswZpnRu UrCcDlBLMBd8OuLCh3nBdwQ8UiTJGsVhF4fIQmHZSm JVsnMWBaMHGfwwY3eB63DMdqozZ2oRJwg8Ybv91pi4 54wO4wdQDqMXL9BYCgAUDpjGKyCONnBJG3ACCazIRx G1f9QmZrdPLyM8G0CqRsfLSeM2L3CdGeiINuI7I1Ak QlnYXuTNXdcCKfTe0zaPIiaYMrcs6saa41YEK7p4Gv xGxrHZN2DNA6VzWrUj3jyZTfZIDsAD7xToSqrFKyMB Mgrw92qPgzREweamGoyL0bUqXgNGMsvWCtXROjEF1q cAEqYBSdpB2hckqgHYYvUnYwdqtbVLGnfUlvueNtZs 4cbNopFSB7WMyaO1vepG1oLsA2FUroD8iyeC2rCHn3 ZZuilUU8IUOraH3vAS2xfawhl7vxWaFoIV8nrtzbo9 mkJwMaSB9dhie1i3dnVvNbLG2lrrvca7ghAtBeOEfa UAKizrpaTKMuf6BghwwxQYXog8AvC8RwfOkzF51bxS lxO67rKOPzuBfchB1tbHsloU3qMdAwRnCuSGyxuAat hJWemvskLMzdqoKtVFylnemrBZMzCYutS3llMnLgFY OvwJrsXPkpf6XdAAIjZOBfLcFcXI1dM4zIBdAJSOEU AIWTHXFDYTIHS4UCBW4SEKjDBZIPZ56RYxiuMREfRJ SvPDBeOIHCYrJRQETXZNjzO0GDF8bCT65HUWDLZZXO GmXKSYzLSMKYXKGiKWlQQk5YO3WYBL2MI9fHXLMfW4 EHUFUqKdHHOhM5SLCumWBcYYPiOHAeGOC7WuOgT16k QD1wT0HZNHBNO5QwUIsDXL2RPT8BRNHNBE1HXFWVHO YKZYzUCO4AJAYiK0RGQPWOVC8KFcWuDYNlfhHiIZDe FJ5hZsRNBBCTEvLpEq1XHNzWDNQVS6SEV8BKTQNYNZ pZQaOMZY3GCBTexjSlMJWaZZ3cN2MJB5gPICiqZwZI ZEABVT1ICJ9RKkaGUpYvOV5BZ1NPIQRKXEMEYoXPVN 6QRbTsbQWhPKKpJVXcXDZVXfJUORSYZXBEXRRAH7KC TO5DGEu0CDhwOZBIVWoUStgwyXDqKXvuRuTlDB13PS tWRDQsO0pCA7XQUYZnBcBQM7YBAOjgRQAujRSdSZCt ZLsESCTOEP7HHFPaQEQAYQKJNJFGWSJBOyJFSCtnWG jAI5WAIBoEBtleoBFpCRGlKDXhRFSGCJBVOC4oMZwP JQlaCj1VDYYxNK9VW4HCDVBZQREMIgRCVZKXV2LLMN wJUPPGUlVXWo5EAKBnAA4pFRglcHInuIwdteDbANmx f0TuXEqeDZFbOD7tkWjvZOMjPU8fTNBqE8nrcZ2kds g4ZxPwJHUuTiQ4BTDqatE3Goa0FKAkTVkos5igr8Mb LALhVGq0pWaxIeDzYHJev5kdkhTdTnLcXYEfUYDsWB XtjDMpF927p8cec6qvpjPrhML9XIHjXIH0OErtjoMk qnB7GKfhfGTaDpV3ZJodccVnOEguaiLjmaMiJpy1AV OlE053VMU0pPurd3vtLIM9MATtLQScXqZoYs7suTPs I964AIBqJDVPQXYoeFx4CNEjhkEcnbBzuUISh151Z0 42c9emBCGxfhCkbJrUkjvzh8kiY584JOMvxOOrhgQn CeMlORIpdZOpvKN1PVHvHM9dwzkzCIfhEEyiMASxel T3ULBegGQvY3YaLGPgSN7gwtndVNF9GPtxJYXjFFZ1 XkSuRVTbh9Ddgcr1IoPnfb3dbf15XXG6o4PptEuuDH X6NWS2UeQgPe9phIQgXGZkFM7wPsCfdWHyJFIxsi60 cFvlAMpzBGG6LVRgctBmu0Oqk8rwIaMapnTkB2ptO9 KwKFAfMAUhQCZvLeVuorPyj9Abq6RfkKEieJp2l4ea FHHzQULjtQbdb4qbKBC1WXHnhVQaA6zfeM1vJIKdXM 4krurty8pgFHzsJRwyIPTrvQN9guG9CUCmjTFiW5Mr dA8qSENxYQceVCQskep2UmKiBp7gqQRjtZhjDYjdUz twYWdlXHBnbmNvbnRccGduZGVjXHBsYWluXHBsYWlu XGYwXGZzMjRccWxcbGFuZzEwMzNcaGljaFxmMVxkYm SjFTTlTXxoH5hiRmVlRqPuQcl5ZDQyyGZbZPJkKqy3 GJFdoFEpTARZeHlvpY3wTFVtvAssnN9pmXC9NSOrmo SqiLPEzV4tCUQPuG2yEcZ6JqYsPvO1OKUhXJietJGd fX0= COMMENT (test code = 3359) n0kerHRqOOCcqHRiEjYdWLDrZRGwl9ipSVAdqZTm Zz SqFzPsPyFmEbkyyHVpOBZpOdYbb8lsr606uMFbq0nk VSKlTyE0gIXmYAPvvXZtO322w2dih0rkofLmdIY6VI YfKNI3KKjvajHhujI1FXyveUMdYiL4CTxaodTwSCrg ziGnpsAzKxd4EHMqE840YSR0kWddy7gcSVZ9MZRvEI VtPrAfTl0tzJPrY992AHIwWHNDDMOpvKg7VMRbppLn kqAkhTHOy787M196w5nwHJUyucHefChSjkfgq8vfM2 60HPBwrSVfrkGkQsNqUQXqpEPjrBP8KBLdWU6jtloo UwZrIJ7gbeeuZyGaFJ6dcxo2KcOwEH9htysfRdKdRY urJXMglagnYOEjo0YemctgWB7kF1Ovb3E6jO0eaTNw RUGnoBOlPuNoDFByfs5uuXDsWAaar3NqGZO9tvG8yV IzqLAcBRNdDK08Dkddn5WpDayzJRH2AFIlxfUjk2Tf g0ruDeWfmdGrM9rcZ2TxRNXvGJWpHCJyDjZgmhVxf6 Guj3NvoNFltDq9t7ckFAZxUVWjbWpuf1mfYAZ4AXFg D1D5wOPld9jaBFwtSGYzgZM9knnfSUluUODekrX2qk bsAEppRRXuuLO6zutdWZheQBFeNrV7adfiYZrjJOQt CZK3WXsor265PKK3UIawMwfzVThqJAMzhrPxwnMveF duZGVjXHBsYWluXHBsYWluXGYwXGZzMjRccWxccGxh hI3bGkVdZxChMKhzCT3tDJRnC8wivPBlRXQmLJHwA4 bwLmHqzX4veQuwIRkwgwJzMLLkZSZ1VLdktVEre5ng z9TlI7twlFtbcHF6RYG3iXSsnWAqz9MmD5ZmyJQsHJ AmNZLctRUtfDc4PKKtb9b7rFCeIROstuFBIfuqHPLE PEFyMH9nLGJVHLXMDnAMvKCkYgtuOQyxT7LoEEPeCY 0leZApigAduaLgkUKniHKjuCLqXb3bK1q4jQU5pVZp jT2ywEwnhJ1gfOlzcYftWT37MCNjxNvhWpMngWFbIB VkBAQsTX6cy9WuX92fuAC1eOWxCWR3uCVeOZJrZNAs LZCtpTruuQeyIQ8mTELgcqruUJTwCArmYI7qey4bwK M2ND3fUBVfLIO5wI4jsmLlTEbsozIntwCkuuSisALt liLyrcDmFURyMFX7jWncQXA7WVE2PUMoB2DllNkvpP vaXIZ4iA4eTRTpiIcrDSUln1keDrGpnIMvZRVqv7Dc bnVjbGVhciBncmFkZSAzLiBccGFyfQ== SYNOPTIC REPORT (test code = 71) KIDNEY: Nephrectomy (Kidney Res - All Specimens) SPECIMEN Procedure: Radical nephrectomy Specimen Laterality: Left TUMOR [...] Pathologic Findings in Nonneoplastic Kidney: None identified CPT Code(s) (test code = 3357) l6ruhLLhDUHnkPKvIuTtAIWxPEYvc3uqWGQp bGFuZz MsIhBoBbGeVfmakHRuRLJgGhMms9ydz593uPYvk7cm ZBOjGvI6gWSvJBSbfBJyT247x1obw5dntoSwuID0VC JlPQQ3EIdglzHknmE5XQxjjQLxHhZ7RYnjitNeFVha nqSfswFuQkj4LKUaL938YYY7bDqep3xpZJP4RRBpZV AqCvSlIc2noOFlT956HPSdAQGUZISrqBa6ZYCdsjRh ilSdgCLRs747Q272g2kwHNLavdTaqFcYttnus1tlP2 14YRMqgHKiydPwQaUqZRLifEBebNW9WZRvYK8nhifi CeGlJS6pydllIxJfDA9gjiw7UwZyFE7ofjwkXeCgEJ ccNSXgtqpaLFRad6CwfkwpSQ1fV2Udo4P0fV1nbCQg MKRavTUiNiHkDTYbbr7npNEcCAxjh4CsVNB8psQ9yX BggRGkRUYnAI82Zkegj9YuFqdhHZB2FVNnlqOhf8Eg f7zkOuDpgmDvL9guU2QjSHCjKFCoJLVgWqGsroTcj2 Xle1TodOEmjZd2l6kuBJErOSCjlYmbv6weWER7ORSa P2J2vSMwv2qnXAsjPMKosWL5lkbnERmpEIUsvtF7aw tfJIfwBUMysAH7vtkmRSofOLRmPsG3gvfiCDklVXVy BAS1RZnph981UPH9IVxiCxuuRIwmAHTxhsPnutEzjF duZGVjXHBsYWluXHBsYWluXGYwXGZzMjRccWxccGxh jQ8bSbRiCpFhJTwyJR5oNYUiD1pebECtXGEqUWZaL7 jxOfYtgA5xbWsiHBvxizNnPSo6WzN8GIxhLtxsAWst SPIuGHs8LzAqXRhtXnqfXMD9 CLINICAL HISTORY (test code = 3356) b6pvmHOeBGEcqBBfYbBxHFYeQWZf i0frTPQmfWWcWb GmBoYvYgFjKdgdcUTqBDCuBaAto5tbu732hBHsh8fl VBVjJdI0cHJzUWCttSYmN482k2zgs1nqlfWsmNH5ST MxLSQ6NVjghqIfclQ5ZJupsXNnDeV2UZkafsEiQGhi ueHhbySfYnd8QQZkP487IXS2eKppy6zjSHG9QOGzXZ KrXfYyGu9ehKTnR913KJSxUJDARCJmkRf6WQQnqzEc fpNwiMGYg892N293e2egUDCaxxYhfBvWjcmdo0orU9 36CSSxuBZhglMsIjXaHEBkaNMtzJW0MUGxKT1ehygq JfJoKC2wasfwKjWsDM6lwoh0JvMqDZ6vmzfvUbVyVB yzDYFltvkyMUZsf3EeetckUF2nR0Rdb5J9qQ2hfNVj IPDodFTpCbPjQGNbwt4nbGFgVItre7OuBZZ1dwB3vZ DigTGfYTRtAJ64Mpyyj6AcYnycTCE6LFAinoOxd9Dp q0erHcWdxuZuM9bhD5IpUULxLPUaXMHfMdEntkJlw2 Iyw1YmxFGabSm5o2ovGVVdOOGflLafp2xwKXV2TKZq R7T1xZOrp6nnVTrvITPfkMR1oskeRDjkSIHsyfB3eq njJSncFVVrjRP2rtbeEAslOESdJwG7icbzOPfxZYEr VDU6WOkxa350JXA7PUciMpqtJEndBAEydeWmdbUdhG duZGVjXHBsYWluXHBsYWluXGYwXGZzMjRccWxccGxh dE5sOwMyDfYuPDlhSC2tDUCjX7ftqWDiAYWrARRmU0 ynOlReaV4vbNceJSxeanYaZIwvZbOtqdKqEJyywKKq cyBccGFyfQ== SPECIMEN SOURCE (test code = 3377) o5bquMPcDPRyfGTkNbUpQTKePNAcq0hf ZGVmbGFuZz ZbZcPlYmTzXqkujNOhBUDgYiHco6eig820qKWwg1ui TZJcOhP7iJYqXWAqmATyD452a2qaa6dcvzAqdKL0WK YbIID8ONhzpuVvcbZ1XNsmdXYnJxW0UBhtwmAsPNsa pfAgaqHpFce6GLGwD412NIM9mAlvk2woHBP5LYHaAI BcQuLwZw8apNPoA875MSEpNDNXSMInmZa8HZAqywNk bqKszCYAv359W242b0vhINYomqBpeXzScppii4ifN9 19FFTbuXDmseVhLiPxOHTafDXypKP1XPRaFU6mgznj VzAyQX6axhxcTlXsUS3pccj8LnCcGU5hfdivUpVsYK mhSQKrfidaTMCmv0PqpwabXI3zI3Abu6B5aT9mdOIv WRIpnTCfSbPgORTjen0irGWfBNmzv8ZiKPO9jeW1cD TdaMUfTJGkHL49Bozrx5GrHhbaYKI1ONAwvuOjt7Te l1imSmCrknFnT1iqY0NcPBXiSBLvPKUzGhErlcFbw0 Rft6WiyREysHl3u6xmQDCeBFKzsWryi1jsIDB5TKEy X8H0qRJqx2ldXJywJMUxmXY0xumjGYoqIYBqdfX9ro okLUngOOMbdUU2cahcBRycUVAiLlJ9dnjbCHttZLHt DIO9QQxmv716TYQ9FIymZxqbGPwiHUQshjUjpoYnjG duZGVjXHBsYWluXHBsYWluXGYwXGZzMjRccWxccGxh zX0oSoSeNfFdWKaxLG8nYLJuD1juuDKkTLPhYZZxD8 baGiQqhX3grKplDLdbgfLjTFKnHDfrMY1ntGdxwKNg oW0nVz2rNbX8wd1kXNFstL8kSBXnRWc4rHXmMB3iPL VccGFyfQ== GROSS DESCRIPTION (test code = 3366) i6cblRHbXDWzpYVuKoPuMDY iGAZmc9wqXNMmrHKsTv JnKpWrXgPdJwjdnSVkCHBfThByd9qva119zRDtr4lf YMZhViG6qWMwFNKfeHRoN981SJIfQEtyp8egx1JbYS DfzYEld8O2NYWNjtznbQf9lNazA99zz4Y4BbhoV4pf LAVbVHUdJ8KrVW7lYVDvGex8FAJ5ZHO5RXNqSMBzZ8 XrXP8vQFVutKHoRNf6l8czgHfrPTIwWJP1g0fbCWou jiVjIM0oob2sbSe4l0otbwVrEOBsWEPfeOZTSDZfH8 GjjZghXx8myUh1uFijRcakCDG2Cnp4NF2nkn32dyu3 aYpaMGWawdbjZkX8HNmvSYZcoapxIFi2ENvfCVAalJ cyMFxtYXJncjcyMFxtYXJndDcyMFxtYXJnYjcyMFxo GFYlZNM5HSeqh016NZN9IXkfp2ydn1cbzDIeXyn8NG KgWgTtLkivPOijw8Dco3tdQOPnsw1xFZV9iGCvuIlu s7A1zRCqJGWznKTnwlSiCTYwKsE5NQliMN2qwi89RY TfMUV3zf4mxNWljIpwliGfgFByKYofN7EnGGHaw191 OQFlI5BjBIPzg9Q7kmDlFsZhHRTflCQ1mxH6XPPtNQ n9jDMwugR9bgZqvTOzO2qevS28EpGneKEuA6YfdV79 VsUwlTCzO9DisE60VaYbvJUkF4GxaD02ViAhhOZsRJ VbgVCaYq1vsVWejWHyk7EwoVEbRAzdX56yy546AKRp aeXqU4kxbBItkmqvmPAsysmxFFqyzuJ2GCCoGJAoJD luXGYxXGZzMjBcbGFuZzEwMzNcaGljaFxmMVxkYmNo RZOdTRihN5brGuNyNbAxIQKGLyUYDYLylAOvPCTzxa VzaCBsYWJlbGVkIHdpdGggdGhlIHBhdGllbnQncyBu [file] XHBsYWluXGYxXGZzMjBcbGFuZzEwMzNcaGljaFxmMV rmFnWkTMWgOIjtL4qvTzHmMdTyONxlUGFzXW3bDEVi NEU4GGilFYUxUqm1OL7zkDHyokBruJJwSZNtDU1oUS hoVQ2gkVtbDIFquOBuRWEaS9Iam97tQ03vEBtreGDc YKDqRKM7ddT6PUDfXZ7bDSHoi3X8pIQyLH8jlgfenu YbXIMxILSdB7OleQVtDZEjDOLrDWVyFVPmCAIaSMus SR3caJJeJEQkkZgiMGLyWKOgVGWgltDkgAKgRvSzVM ZrfPLcZWI1YONiQYOhMNMkRLXcwF5shVOzSPX5VOV1 LCBtYXNzIHRvIHJlbmFsIHNpbnVzXHBhciBBOCwgbW AjjxZ2cwZtzDb4jDpwPMHqYGqyRVDnuPYfn6UqkKM8 rIYgZV2yOF9ha0Rup7g9vIInB3ZfjcCwUFEyJIMlIW 9hDNEjt8IhEANbzgFUSECkMO1vo0ZpuD3iwO3jvsNr fQMeTMTnYNWqrzTezS0jNDBzlWRyrC6wRYvjTKVvRP RgODSmFgxafK3fxeXqtOKtPZUkRXKyedXvpD7fYBky UJPieQBwHDWaTEWiR9YxhzVzCQXdTUXuTNusWkHnEQ Sua0r7bTS9kRRgoKL5nQKnbMzjEA8igEZlZBRxI9St v3niguBnoO1wSOSkSS1xSHHmBYApn7Xxkqu1m17wUR kibCngsNylox0jEMOuEHubHJHoLw08CPgqKd48YXni MR02BLFuZNIsF0JjM0F3CMLjYqXniDt3aHHyIZOibk KjD9MtSAQaGIQwwh46MKnnm4eaGXOfwUEmm3PswHgs q7JaVATeYXlwPY90sv8sBSvhBPEhHLIwiEPdBXcmAZ NfF1Lbw57gWSU1fuOsBFWlNNuwcRVxeXcljQKrqXuy tpCguA0zhVEne5SebcMkGB2vzH1iEVPrn78lZF6fVQ QbLTMqbQ8fZBpwCXCcMAJyyMPmCJcpHHYbhPjsPEl0 NFE1Rr4leUNnCO6zkEGqZVVegoIXDIF4rB4aQTKgPX J3JANkmmGSBW7RWZjie91vFVEfl2PcQjsgPPk5xXYi QS7bLSLqcH5bMUSosGDwVNTqBPD9PQhwZGVzYfKxTY SrjnVyrI4mk8olnIJjdV43CSN4QVf2iZTtWH5bGNTq REXrxlBAFx0XHDcxfqKpWGalYSWqRJ4nEZLiSFDroR VhDBSeosALHb9oy6eiPTL2 SPECIAL STUDIES (test code = 3376) m0sqdQTnZKLkuKJlGrLkJWItMGWpq1xi ZGVmbGFuZz [file] MlxmczIyXHBhclxwYXJkXHBsYWluXGYwXGZzMjJccG bpqG9bWdVkRsJzBKhkHH3hITIdP0tuuFGhOSQzFNCd J2yiWxEkoH4vqDppTtvixlN3JGTezi0= [facility] [id number] 14:46:00Surgical Pathology Report Case: [id number] Authorizing Provider: Alfredito Ratliff MD Collected: 08/21/2019 1712 Ordering Location: [facility] PERIOPER[facility] Received: 08/22/2019 1041 SERVICES Pathologist: Khris Morales MD Specimens: A) - Kidney, Left B) -Lymph Node, Retroperitoneal lymph nodes A. 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 Kidney, left. [...] 0.3 cm in diameter.The kidney is opened toreveal a well-circumscribed, heterogenous, huddleston-yellow, johnson, partially hemorrhagic [...] nodes are not present in the hilum. Primary Clinician sections are submitted.Ink code: Blue-outer surface of kidneySection code:A1, ureter and vascular margins, en faceA2-A3, mass to kidney capsule and perinephric fatA4, mass to veinA5-A7, mass to renal sinusA8, mass to hilumA9, floor representative of mass with scarred area, mid lobeA10, mass to uninvolved parenchyma, mid ufxsE93-Q97, uninvolved parenchyma B. Received fresh labeled with [...] evaluated Immunohistochemistry technical testing was performed at [facility], Pathology Laboratory where it was developed and its performance characteristics were determined. It has not been cleared or approved by the U.S. Food and Drug Administration. The FDA has determined that such clearance or approval is not necessary.The test is used for clinical purposes. It should not be regarded as investigational or for research. This laboratory is certified under the Clinical Laboratory Improvement Amendments of 1988 (CLIA-88)as qualified to perform high complexity clinical laboratory testing.Hemoglobin and [id number] 13:13:00 Test Item Value Reference Range Interpretation Comments Hemoglobin (test code = 786-4) 10.6 11.2- 15.7 GM/DL L Hematocrit (test code = 4544-3) 33.8 % 34.1-44.9 L Lab Interpretation (test code = Abnormal 25057-2) [facility] [id number] 13:13:00 Test Item Value Reference Range Interpretation Comments HEMOGLOBIN (BEAKER) (test code = 10.6 GM/DL 11.2-15.7 L 410) HEMATOCRIT (BEAKER) (test code = 33.8 % 34.1-44.9 L 411) Basic Metabolic [id number] 07:54:00 Test Item Value Reference Range Interpretation Comments Sodium (test code = 134 meq/L 136-145 L 2951-2) Potassium (test code = 4.4 meq/L 3.5-5.1 2823-3) Chloride (test code = 106 meq/L 98-107 2075-0) CO2 (test code = 23 meq/L 22-29 2028-9) BUN (test code = 16 mg/dL 7-21 3094-0) Creatinine (test code = 0.90 mg/dL 0.57-1.25 2160-0) Glucose (test code = 100 mg/dL 70-105 2345-7) Calcium (test code = 8.3 mg/dL 8.4-10.2 L 16551-1) EGFR (test code = 63 mL/min/1.73 [place] [address]-6) NOT ACCURATE CREATININE CLEARANCE IN PREDICTING GLOMERULAR FILTRATION RATE . ESTIMATED GFR I S NOT APPLICABLE FOR DIALYSIS PATIEN TS. Lab Interpretation Abnormal (test code = 09404-7) [facility] METABOLIC [id number] 07:54:00 Test Item Value Reference Range Interpretation Comments SODIUM (BEAKER) 134 meq/L 136-145 L (test code = 381) POTASSIUM (BEAKER) 4.4 meq/L 3.5-5.1 (test code = 379) CHLORIDE (BEAKER) 106 meq/L 98-107 (test code = 382) CO2 (BEAKER) (test 23 meq/L 22-29 code = 355) BLOOD UREA NITROGEN 16 mg/dL 7-21 (BEAKER) (test code = 354) CREATININE (BEAKER) 0.90 mg/dL 0.57-1.25 (test code = 358) GLUCOSE RANDOM 100 mg/dL 70-105 (BEAKER) (test code = 652) CALCIUM (BEAKER) 8.3 mg/dL 8.4-10.2 L (test code = 697) EGFR (BEAKER) (test 63 mL/min/1.73 ESTIMA YINA GFR IS code = 1092) sq m NOT ACCURATE CREATININE CLEARANCE IN PREDICTING GLOMERULAR FILTRATION RATE . ESTIMATED GFR I S NOT APPLICABLE FOR DIALYSIS PATIEN TS. HEMOGLOBIN AND [id number] 07:37:00 Test Item Value Reference Range Interpretation Comments HEMOGLOBIN (BEAKER) (test code = 10.6 GM/DL 11.2-15.7 L 410) HEMATOCRIT (BEAKER) (test code = 33.5 % 34.1-44.9 L 411) BASIC METABOLIC [id number] 05:55:00 Test Item Value Reference Range Interpretation Comments SODIUM (BEAKER) 138 meq/L 136-145 (test code = 381) POTASSIUM (BEAKER) 4.3 meq/L 3.5-5.1 (test code = 379) CHLORIDE (BEAKER) 109 meq/L 98-107 H (test code = 382) CO2 (BEAKER) (test 25 meq/L 22-29 code = 355) BLOOD UREA NITROGEN 14 mg/dL 7-21 (BEAKER) (test code = 354) CREATININE (BEAKER) 0.84 mg/dL 0.57-1.25 (test code = 358) GLUCOSE RANDOM 113 mg/dL 70-105 H (BEAKER) (test code = 652) CALCIUM (BEAKER) 8.8 mg/dL 8.4-10.2 (test code = 697) EGFR (BEAKER) (test 68 mL/min/1.73 ESTIMA YINA GFR IS code = 1092) sq m NOT ACCURATE CREATININE CLEARANCE IN PREDICTING GLOMERULAR FILTRATION RATE . ESTIMATED GFR I S NOT APPLICABLE FOR DIALYSIS PATIEN TS. HEMOGLOBIN AND [id number] 05:36:00 Test Item Value Reference Range Interpretation Comments HEMOGLOBIN (BEAKER) (test code = 11.6 GM/DL 11.2-15.7 410) HEMATOCRIT (BEAKER) (test code = 36.6 % 34.1-44.9 411) BASIC METABOLIC [id number] 19:19:00 Test Item Value Reference Range Interpretation Comments SODIUM (BEAKER) 140 meq/L 136-145 (test code = 381) POTASSIUM (BEAKER) 4.0 meq/L 3.5-5.1 Specimen slightly (test code = 379) hemolyzed CHLORIDE (BEAKER) 109 meq/L 98-107 H (test code = 382) CO2 (BEAKER) (test 25 meq/L 22-29 code = 355) BLOOD UREA NITROGEN 13 mg/dL 7-21 (BEAKER) (test code = 354) CREATININE (BEAKER) 0.82 mg/dL 0.57-1.25 Specimen slightly (test code = 358) hemolyzed GLUCOSE RANDOM 164 mg/dL 70-105 H (BEAKER) (test code = 652) CALCIUM (BEAKER) 9.1 mg/dL 8.4-10.2 (test code = 697) EGFR (BEAKER) (test 70 mL/min/1.73 ESTIMA YINA GFR IS code = 1092) sq m NOT ACCURATE CREATININE CLEARANCE IN PREDICTING GLOMERULAR FILTRATION RATE . ESTIMATED GFR I S NOT APPLICABLE FOR DIALYSIS PATIEN TS. HEMOGLOBIN AND [id number] 18:50:00 Test Item Value Reference Range Interpretation Comments HEMOGLOBIN (BEAKER) (test code = 12.8 GM/DL 11.2-15.7 410) HEMATOCRIT (BEAKER) (test code = 39.8 % 34.1-44.9 411) ABORH, [id number] 12:11:00 Test Item Value Reference Range Interpretation Comments ABO Grouping (test code = 2588) A Rh Factor (test code = 2589) POS [facility] [id number] 09:25:00 Test Item Value Reference Range Interpretation Comments Result (test code = 80-89,000 col/mL skin 6463-4) david [facility] [id number] 09:25:00 Test Item Value Reference Range Interpretation Comments CULTURE (BEAKER) (test 80-89,000 col/mL skin code = 1095) david Type and screen, [id number] 17:23:00 Test Item Value Reference Range Interpretation Comments ABO/RH AUTOMATED (BEAKER) (test A POSITIVE code = 2260) Ab Scrn (test code = 890-4) NEGATIVE [facility]/[id number] 17:15:00 Test Item Value Reference Range Interpretation Comments Protime (test code = 13.0 11.9- 14.2 5902-2) seconds INR (test code = 1.0 <=5.9 6301-6) SUMMER (test code = SUMMER) Effective 02/13/2019: PT Reference Range ChangeNew: 11.9-14.2 Previous: 11.7-14.7 RECOMMENDED COUMADIN/WARFARIN INR THERAPY RANGESSTANDARD DOSE: 2.0-3.0 Includes: PROPHYLAXIS for venous thrombosis, systemic embolization; TREATMENT for venous thrombosis and/or pulmonary embolus.HIGH RISK: Target INR is 2.5-3.5 for patients wiht mechanical heart valves. Lab Interpretation Normal (test code = 38411-4) [facility] 17:15:00 Test Item Value Reference Range Interpretation Comments PTT (test code = 84015-8) 27.7 22.5- 36.0 seconds Lab Interpretation (test code = Normal 50196-8) [facility]PROT[facility]OM[facility]/[id number] 17:15:00 Test Item Value Reference Range Interpretation Comments PROTIME (BEAKER) (test code = 13.0 seconds 11.9-14.2 759) INR (BEAKER) (test code = 370) 1.0 <=5.9 Effective 02/13/2019: PT Reference Range ChangeNew: 11.9-14.2 Previous: 11.7- 14.7RECOMMENDED COUMADIN/WARFARIN INR THERAPY RANGESSTANDARD DOSE: 2.0-3.0 Includes: PROPHYLAXIS for venous thrombosis, systemic embolization; TREATMENT for venous thrombosis and/or pulmonary embolus.HIGH RISK: Target INR is2.5-3.5 for patients wiht mechanical heart valves.[id number] 17:15:00 Test Item Value Reference Range Interpretation Comments PARTIAL THROMBOPLASTIN TIME 27.7 seconds 22.5-36.0 (BEAKER) (test code = 760) BASIC METABOLIC [id number] 17:04:00 Test Item Value Reference Range Interpretation Comments SODIUM (BEAKER) 139 meq/L 136-145 (test code = 381) POTASSIUM (BEAKER) 3.8 meq/L 3.5-5.1 (test code = 379) CHLORIDE (BEAKER) 105 meq/L 98-107 (test code = 382) CO2 (BEAKER) (test 30 meq/L 22-29 H code = 355) BLOOD UREA NITROGEN 12 mg/dL 7-21 (BEAKER) (test code = 354) CREATININE (BEAKER) 0.69 mg/dL 0.57-1.25 (test code = 358) GLUCOSE RANDOM 96 mg/dL 70-105 (BEAKER) (test code = 652) CALCIUM (BEAKER) 10.0 mg/dL 8.4-10.2 (test code = 697) EGFR (BEAKER) (test 85 mL/min/1.73 ESTIMA YINA GFR IS code = 1092) sq m NOT ACCURATE CREATININE CLEARANCE IN PREDICTING GLOMERULAR FILTRATION RATE . ESTIMATED GFR I S NOT APPLICABLE FOR DIALYSIS PATIEN TS. Urinalysis w/[id number] 16:35:00 Test Item Value Reference Range Interpretation Comments Color, UA (test code = 5778-6) Yellow Clarity, UA (test code = 5767-9) Clear Specific [place], UA (test code = 1.027 1.001-1.035 5811-5) pH, UA (test code = 5803-2) 7.0 5.0-8.0 Protein, UA (test code = 99986-3) 10 mg/dL Negative A Glucose, UA (test code = 365) Negative Negative Ketones, UA (test code = 2514-8) Trace Negative A Bilirubin, UA (test code = 61795-1) Negative Negative Blood, UA (test code = 28534-2) Negative Negative Nitrite, UA (test code = 5802-4) Negative Negative Leukocytes, UA (test code = 5799-2) Negative Negative Urobilinogen, UA (test code = 6.0 mg/dL 0.2-1 H 82885-1) RBC, UA (test code = 68461-8) 1 /HPF WBC, UA (test code = 5821-4) 1 /HPF Bacteria, UA (test code = 20545-1) Rare Mucus (test code = 8247-9) Rare Squam Epithel, UA (test code = 2 /HPF 48766-0) Ca Oxalate Chantel, UA (test code = Many 99477-5) Specimen Source (test code = 2795) Lab Interpretation (test code = Abnormal 48935-7) [facility] [id number] 16:35:00 Test Item Value Reference Range Interpretation Comments COLOR (BEAKER) (test code = 470) Yellow CLARITY (BEAKER) (test code = 469) Clear SPECIFIC GRAVITY UA (BEAKER) (test 1.027 1.001-1.035 code = 468) PH UA (BEAKER) (test code = 467) 7.0 5.0-8.0 PROTEIN UA (BEAKER) (test code = 10 mg/dL Negative A 464) GLUCOSE UA (BEAKER) (test code = Negative Negative 365) KETONES UA (BEAKER) (test code = Trace Negative A 371) BILIRUBIN UA (BEAKER) (test code = Negative Negative 462) BLOOD UA (BEAKER) (test code = 461) Negative Negative NITRITE UA (BEAKER) (test code = Negative Negative 465) LEUKOCYTE ESTERASE UA (BEAKER) Negative Negative (test code = 466) UROBILINOGEN UA (BEAKER) (test code 6.0 mg/dL 0.2-1.0 H = 463) RBC UA (BEAKER) (test code = 519) 1 /HPF WBC UA (BEAKER) (test code = 520) 1 /HPF BACTERIA (BEAKER) (test code = 517) Rare MUCUS (BEAKER) (test code = 1574) Rare SQUAMOUS EPITHELIAL (BEAKER) (test 2 /HPF code = 516) CALCIUM OXALATE CRYSTALS (BEAKER) Many (test code = 518) SOURCE(BEAKER) (test code = 2795) CBC with platelet count + automated [id number] 16:33:00 Test Item Value Reference Range Interpretation Comments WBC (test code = 6690-2) 10.0 3.5- 10.5 K/L RBC (test code = 789-8) 4.18 3.93- 5.22 M/L MCHC (test code = 786-4) 32.6 32.2- 35.5 GM/DL Hematocrit (test code = 4544-3) 39.3 % 34.1-44.9 MCV (test code = 787-2) 94.0 fL 79.4-94.8 MCH (test code = 785-6) 30.6 pg 25.6-32.2 RDW (test code = 788-0) 12.7 % 11.7-14.4 Platelets (test code = 777-3) 224 150- 450 K/CU MM MPV (test code = 26427-8) 11.5 fL 9.4-12.3 nRBC (test code = 413) 0 0- 0 /100 WBC % Neutros (test code = 429) 52 % % Lymphs (test code = 430) 36 % % Monos (test code = 431) 9 % % Eos (test code = 432) 3 % % Baso (test code = 437) 1 % # Neutros (test code = 670) 5.20 1.56- 6.13 K/L # Lymphs (test code = 414) 3.56 1.18- 3.74 K/L # Monos (test code = 415) 0.91 0.24- 0.36 K/L H # Eos (test code = 416) 0.26 0.04- 0.36 K/L # Baso (test code = 417) 0.05 0.01- 0.08 K/L Immature Granulocytes-Relative 0 % 0-1 (test code = 2801) Lab Interpretation (test code = Abnormal 68616-4) [facility] & [facility] [id number] 16:33:00 Test Item Value Reference Range Interpretation Comments WHITE BLOOD CELL COUNT (BEAKER) 10.0 K/ L 3.5-10.5 (test code = 775) RED BLOOD CELL COUNT (BEAKER) 4.18 M/ L 3.93-5.22 (test code = 761) HEMOGLOBIN (BEAKER) (test code = 12.8 GM/DL 11.2-15.7 410) HEMATOCRIT (BEAKER) (test code = 39.3 % 34.1-44.9 411) MEAN CORPUSCULAR VOLUME (BEAKER) 94.0 fL 79.4-94.8 (test code = 753) MEAN CORPUSCULAR HEMOGLOBIN 30.6 pg 25.6-32.2 (BEAKER) (test code = 751) MEAN CORPUSCULAR HEMOGLOBIN CONC 32.6 GM/DL 32.2-35.5 (BEAKER) (test code = 752) RED CELL DISTRIBUTION WIDTH 12.7 % 11.7-14.4 (BEAKER) (test code = 412) PLATELET COUNT (BEAKER) (test 224 K/CU MM 150-450 code = 756) MEAN PLATELET VOLUME (BEAKER) 11.5 fL 9.4-12.3 (test code = 754) NUCLEATED RED BLOOD CELLS 0 /100 WBC 0-0 (BEAKER) (test code = 413) NEUTROPHILS RELATIVE PERCENT 52 % (BEAKER) (test code = 429) LYMPHOCYTES RELATIVE PERCENT 36 % (BEAKER) (test code = 430) MONOCYTES RELATIVE PERCENT 9 % (BEAKER) (test code = 431) EOSINOPHILS RELATIVE PERCENT 3 % (BEAKER) (test code = 432) BASOPHILS RELATIVE PERCENT 1 % (BEAKER) (test code = 437) NEUTROPHILS ABSOLUTE COUNT 5.20 K/ L 1.56-6.13 (BEAKER) (test code = 670) LYMPHOCYTES ABSOLUTE COUNT 3.56 K/ L 1.18-3.74 (BEAKER) (test code = 414) MONOCYTES ABSOLUTE COUNT (BEAKER) 0.91 K/ L 0.24-0.36 H (test code = 415) EOSINOPHILS ABSOLUTE COUNT 0.26 K/ L 0.04-0.36 (BEAKER) (test code = 416) BASOPHILS ABSOLUTE COUNT (BEAKER) 0.05 K/ L 0.01-0.08 (test code = 417) IMMATURE GRANULOCYTES-RELATIVE 0 % 0-1 PERCENT (BEAKER) (test code = 2801) BREAST ULTRASOUND CORE BIOPSY [id number] 16:30:01- BREAST ULTRASOUND CORE BIOPSY RIGHTULTRASOUND GUIDED [...] to exam dated 05/21/2019 ultrasound - [facility]-. An ultrasound guided biopsy using [...] recommended. Sandra Jimenez M.D. cc/:06/25/2019 16:30:01 Entry: junaid - 06/26/2019 08:21:12Imaging Technologist: Charlee Raygoza , [facility]-RGDIAG MAMM RIGHT CAD [id number] 09:46:33 - DIAG MAMM RIGHT CAD DIGITALUNILATERAL RIGHT DIGITAL DIAGNOSTIC MAMMOGRAM WITH CAD - RIGHT BREAST POST-PROCEDURE IMAGING FOR MARKER PLACEMENT: 06/19/2019CLINICAL: Post clip placement. Current mammographic images were evaluated by either a [employer] M-Vu or an [employer] version 7.2 computer aided detection system. Comparison is made to exams dated 06/19/2019 ultrasound, 06/19/2019 ultrasound biopsy, 06/19/2019 ultrasound biopsy, 05/21/2019 ultrasound, and 05/21/2019 mammogram - [facility]-RG. There are scattered fibroglandular tissues in the [...] right axilla. Sandra Jimenez M.D. cc/:06/19/2019 09:46:33 Warehouse Packer: Dionne ESCALANTE, [facility]-RGMammogram BI-RADS: Post-procedure mammogram for marker placementBREAST ULTRASOUND [id number] 15:44:10 - DIAG MAMM BILATERAL SUSAN CAD DIGITALBILATERAL DIGITAL DIAGNOSTIC MAMMOGRAM 3D/2D WITH CAD: 9CLINICAL: Palpable Lump and nipple abnormality right breast. Digital breast tomosynthesis was performed in addition to routine CC and MLO views. Current mammographic images were evaluated by either a [employer] M-Vu or an iCAD version 7.2 computer aided detection system. No [...] - 05/22/2019 08:27:22Imaging Technologist: Kayden ESCALANTE, [facility]-RGletter sent: BIRADS 4/5 Biopsy Mammogram BI-RADS: 0 Indeterminate Ultrasound BI-RADS: 5 Highly suggestive of malignancyDIAG MAMM BILATERAL SUSAN CAD [id number] 15:44:10 - DIAG MAMM BILATERAL SUSAN CAD DIGITALBILATERAL DIGITAL DIAGNOSTIC MAMMOGRAM 3D/2D WITH CAD: 05/21/2019CLINICAL: Palpable Lump and nipple abnormality right breast. Digital breast tomosynthesis was performed in addition to routine CC and MLO views. Current mammographic images were evaluated by either a [employer] M-Vu or an iCAD version 7.2 computer aided detection system. No [...] - 05/22/2019 08:27:22Imaging Technologist: Kayden ESCALANTE, [facility]-letter sent: BIRADS 4/5 Biopsy Mammogram BI-RADS: 0 Indeterminate Ultrasound BI-RADS: 5 Highly suggestive of malignancy
--- OUTSIDE RECORDS SUMMARY | 2020-03-12 06:36 | XMS REPORT | Summary of Care ---
:1955 Author Organization [facility] [place] [address] Care Team Providers Name Role Phone System, Not In Primary Care Provider Reason for Referral Radiology Services (Routine) Status Reason Specialty Diagnoses / Procedures Referred By Robin napoles Referred To Contact Pending Radiology Diagnoses Personal history of kidney cancer Alfredito Ratliff B[facility] Ct Imaging Procedures CT ABDOMEN PELVIS W WO CONTRAST [address] [facility] [address] [place], [place] [id number] Phone: Fax: Reason for Visit Reason Comments Follow Up Kidney Cancer Encounter Details Date Type Department Care Team Description 03/03/2020 Office Visit [facility] Alfredito Ratliff Follow Up Kidney Medicine Urology MD [facility] [address] [facility] [address], [address] [place] [address] [place] [address] [phone] Allergies No Known Allergiesdocumented as of this encounter (statuses as of 03/03/2020) Medications Medication Sig Dispensed Refills Start Date End Date Status Letrozole (FEMARA OR) Take by mouth. 0 Active acetaminophen-codeine 0 08/24/2019 Active (TYLENOL #3) 300-30 MG per tablet documented as of this encounter (statuses as of 03/03/2020) Active Problems No known active problemsdocumented as of this encounter (statuses as of 03/03/2020) Immunizations Name Administration Dates Next Due Influenza Quad-PF 07/03/2019 documented as of this encounter Social History Tobacco Use Types Packs/Day Years Used Date Current Every Day Smoker Cigarettes 1 25 Smokeless Tobacco: Never Used Alcohol Use Drinks/Week oz/Week Comments Never Alcohol Habits Answer Date Recorded How often do you have a drink containing alcohol? Never 08/06/2019 How many drinks containing alcohol do you [...] Travel End No recent travel history available. COVID-19 Exposure Response Date Recorded In the last month, have you been in contact with No / Unsure 03/03/2020 11:29 AM CDT someone who was confirmed or suspected to have Coronavirus / COVID-19? documented as of this encounter Last Filed Vital Signs Not on filedocumented in this encounter Progress Notes Alfredito Ratliff MD - 03/03/2020 11:45 AM CDTMs. Long 64 year old female pleasant woman who came in 07/2019 referred for a new diagnosis of a inci dentally detected 9 cm left enhancing renal mass reportedly. In early 2018 she detected a right-sided breast mass but had no insurance. When she turned 63 she began working this up and was ultimately diagnosed with an infiltrative breast cancer. She's undergone a fairly extensive staging workup by her oncologist in [facility] during which a CT scan only with contrast reportedly demonstrated a very large 9 cm left-sided mass consistent with a renal cell carcinoma. She underwent a bone scan which wasabnormal in the T12 region and underwent a biopsy which reportedly showed metastatic breast cancer.She never had routine medical care and is quite obese (BMI of 42). 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 She did extremely well in house and at her post op appointment, we noticed some separation of her extraction site in the midline due to her habitus and hygiene. I started her on dressing changes and she progressed well. She comes back now for 6 month follow up. She completed chemotherapy and now she is being recommended to have a mastectomy which is good sincepreviously the tumor was felt to be inoperable. She has lost however 100 pounds. Most of that is been anorexia. She also was having abdominal pain and ultimately ended up needing an open cholecystectomy 1 month ago. She is felt better since then. She brings surveillance imaging studies but without reports. The CT scan of the abdomen looks good to me from a cancer standpoint. I have no labs to review. There is a CT scan of the chest but no report. Past Medical, surgical, family and social histories reviewed. Review of Systems Constitutional: Negative. HENT: Negative. Eyes: Negative. Respiratory: Positive for cough. Cardiovascular: Negative. Gastrointestinal: Negative. Endocrine: Negative. Genitourinary: Positive for frequency and urgency. Musculoskeletal: Positive for back pain. Skin: Negative. Allergic/Immunologic: Negative. Neurological: Negative. Hematological: Negative. Psychiatric/Behavioral: Negative. Physical Exam Vitals reviewed. Constitutional: She is oriented to person, place, and time. She appears well- developed and well-nourished. No distress. HENT: Head: Normocephalic and atraumatic. Neck: Normal range of motion. Neck supple. No tracheal deviation present. Cardiovascular: No evidence of lower extremities edema Pulmonary/Chest: Effort normal. No respiratory distress. Abdominal: well healed open gall bladder incision; Soft. She exhibits no distension and no mass. There is no tenderness. There is no rebound and no guarding. Musculoskeletal: Normal range of motion. No CVAT Lymphadenopathy: She has no cervical adenopathy. Neurological: She is alert and oriented to person, place, and time. Skin: Skin is warm and dry. No rash noted. She is not diaphoretic. No erythema. No pallor. Psychiatric: She has a normal mood and affect. Her behavior is normal. Judgment and thought content normal. Assessment: Ms. Jurado is a 64-year-old woman with a T2 HG 9 cm left RCC completely resected and N0.I asked her to obtain the reports for my review. We also sent blood work today. I reminded her thehigh risk protocol which would be cross-sectional imaging in the abdomen and pelvis every 6 months for 3 years as well as annual chest imaging. The cross-sectional imaging of the abdomen and pelvis needs to be with and without contrast as long as her GFR will allow it. If the GFR is between 30 and 60, then it should be with MRI and gadolinium. It should only be noncontrast if it's less than 30. I'll see her back in 6 months for follow-up.. Plan 1. OS CT reports 2. CMP/ CBC 3. RTC in [address] a/p with and without contrast/ CMP/ CBC prior documented in this encounter Plan of Treatment Name Type Priority Associated Diagnoses Order S chedule COMPREHENSIVE METABOLIC Lab Routine Personal history of Ordered: 03/03/2020 PANEL kidney cancer CBC W/AUTO DIFF WITH Lab Routine Personal history of Ordered: 03/03/[address] ABDOMEN PELVIS W WO Imaging Routine Personal history o f Expected: 09/02/2020 CONTRAST kidney cancer (Approximate), Expires: 2020 Health Maintenance Due Date Last Done Comments COLON CANCER SCREENING: COLONOSCOPY 1955 MAMMOGRAM ANNUAL 1955 TETANUS SHOT (ADULT) 1968 BMI FOLLOW UP PLAN 12/17/1971 HEPATITIS C SCREENING 12/17/1971 MEDICARE AWV (Initial) 09/18/2018 FALL SCREEN 2018 OSTEOPOROSIS SCREENING 2018 PNEUMOVAX >=65 (PPSV23) 2018 PREVNAR >= 65 (PCV13) 2018 FLU VACCINE > 6 MONTHS 04/18/2020 08/16/2019 (Declined), 07/03/2019 documented as of this encounter Results Not on filedocumented in this encounter Visit Diagnoses Diagnosis Personal history of kidney cancer - Prim mariann Personal history of malignant neoplasm o f kidney documented in this encounter Insurance Payer Benefit Plan / Subscriber ID Effective Dates Phone Addre ss Type Group [facility] xxxxxxxxx 2019-Prese [address] [address] PPO PPO [facility] [address] [phone] (Home) [place] [id number] documented as of this encounter
[2020-03-12] MEDS ORDERED: CEFAZOLIN/SWI 1gm 1 GM/10 ML SYR ONE (06:48)
[2020-03-12] MEDS ORDERED: Ringers Lactate 1,000 ML IV ONE (06:48)
[2020-03-12] MEDS ORDERED: METHYLENE BLUE 0.5% 10 ML AMP ONE (07:12)
[2020-03-12] MEDS ORDERED: FENTANYL CITR 100 MCG/2 ML ONE (07:25)
[2020-03-12] MEDS ORDERED: MIDAZOLAM HCL 2 MG/2 ML INJ ONE (07:25)
[2020-03-12] MEDS ORDERED: propofoL 200 MG/20 ML VIAL IV ONE (07:25)
[2020-03-12] MEDS ORDERED: LIDOCAINE 2% MPF 5 ML VIAL ONE (07:25)
[2020-03-12] MEDS ORDERED: ROCURONIUM 50 MG/5 ML VIAL IV ONE (07:26)
[2020-03-12] MEDS ORDERED: dexAMETHasone 10 MG/ML VIAL ONE (07:51)
[2020-03-12] MEDS ORDERED: ONDANSETRON 4 MG/2 ML VIAL ONE ×2 (07:54→10:12)
[2020-03-12] MEDS ORDERED: HYDROMORPHONE HCL 1 MG/ML INJ ONE (08:08)
[2020-03-12] MEDS ORDERED: LABETALOL 20 MG/4ML SYRINGE IV ONE (08:31)
[2020-03-12] MEDS ORDERED: NEOSTIGMINE 1 MG/ML -5 ML ONE (08:52)
[2020-03-12] MEDS ORDERED: GLYCOPYRROLATE 0.2 MG/ML SYR ONE (08:52)
[2020-03-12] MEDS ORDERED: NA CHLORIDE 0.9% 1,000 ML ONE (08:55)
[2020-03-12] MEDS ORDERED: Mastisol Adhesive Liq ONE (09:01)
[2020-03-12] MEDS: HYDROMORPHONE HCL 2 MG/ML inj ONE ×4 (09:25→09:55)
[2020-03-12 10:43] VITALS: TEMP 97.1; O2SAT 96
[2020-03-12] MEDS ORDERED: HYDROCODONE/APAP 7.5/325 MG TAB ONE (11:02)
[2020-03-12 11:59] VITALS: BP 139/61
--- NOTE | 2020-03-12 21:04 | OP ---
Date of Procedure: 03/12/2020 Surgeon: Beto Birch MD Loss Prevention Detective: MARINA Franco. Preoperative Diagnosis: Right breast cancer. Postoperative Diagnosis: Right breast cancer. Procedure: Right modified radical mastectomy. Estimated Blood Loss: Minimal. Specimen: Right breast margins were close to the deep; however, that was in the pectoralis fascia an d axillary dissection. Findings: As above. Anesthesia: General. Complications: None. Drains: KAEL #10 x2, one in the flap and one in the right axilla. Disposition: Patient tolerated the procedure in stable condition, taken to Recovery in good general condition. Description Of Procedure: Patient was brought to the OR and placed in supine position. General anes thesia begun. Patient was prepped and draped in usual sterile fashion. Then, a 15 blade was used to make approximately a 20 x 10 cm ellipse of skin around the breast. The mass was palpable. It was m obile off the chest wall and then flaps were created superior to the clavicle, medially to the sterna l border, inferior to the insertion of the rectus abdominal muscle, laterally to the anterior surface of the latissimus dorsi and all the breast tissue off the pectoralis fascia was removed and sent to Pathology. Again the tumor was close to the deep margin. There was no gross disease seen on the pec toralis fascia and there was no gross evidence of cancer on the posterior part of the margins. This was confirmed with pathology. Then axillary dissection proceeded. Axillary vein identified, thoraco dorsal and long thoracic neurovascular bundle identified. All lymph nodes in that area removed. Vas cular clips used as needed and then Branden lymph node was sampled as well. Specimens were sent to Alex thyehuda. Wound irrigated. Bleeding controlled with cautery. The Sekou-Smart drains, one in the a xilla, one under the flap was placed secured with 3-0 nylon and then 2-0 chromic used for subcutaneou s tissue and 3-0 chromic used to close skin. Sterile dressing was applied. Patient was awakened and taken to Recovery in good general condition. Discharge Note: The patient will go to day surgery and home when stable. Disposition: Home. Condition: Stable. Discharge Instructions: Resume home medications and diet. Activity as tolerated. Keep dressing margie an and dry, sponge bathe only. Record KAEL output q.12, bring record to office. Tylenol No.3 one tabl et p.o. q.4 p.r.n. pain, Keflex 500 mg p.o. q.6. /NAE Voice ID: [id number] Report ID: [id number]
== END 2020-03-12 11:50 | disposition home or self-care (01) ==
LOC: OR 06:31
PROVIDERS: ATTEND Surgery
PROC: 0KBH0ZZ Excision of Right Thorax Muscle, Open Approach (ICD-10-PCS; 2020-03-12)
PROC: 07T50ZZ Resection of Right Axillary Lymphatic, Open Approach (ICD-10-PCS; 2020-03-12)
PROC: 0HTT0ZZ Resection of Right Breast, Open Approach (ICD-10-PCS; principal; 2020-03-12 07:30)
DX: C50.111 Malignant neoplasm of central portion of right female breast (principal); C77.3 Secondary and unspecified malignant neoplasm of axilla and upper limb lymph nodes; Z17.0 Estrogen receptor positive status [ER+]; Z11.59 Encounter for screening for other viral diseases; I45.10 Unspecified right bundle-branch block; R94.31 Abnormal electrocardiogram [ECG] [EKG]; Z90.5 Acquired absence of kidney; Z79.899 Other long term (current) drug therapy
CPT/HCPCS: 93005; 85025; 80048; 36415; 88307; 88309; 71046; 19307; U0002; J2704; J2250; J1170 ×2; J3010; J1100; J2710; J0690; J7120; J7030; J2405 ×2; 88305

== ENCOUNTER 2020-10-09 07:06 | Day surgery (SDC) | payer OTHER ==
[2020-10-06 13:28] LABS: Absolute Lymphocytes (CBC) 1.1 K/uL (0.7-4.9); Basophils % 0.8 % (0-1.3); Hematocrit 32.5 % (36.0-45.0); Lymphocytes % 29.4 % (15.3-44.8); MPV 7.7 fL (7.6-11.3); RBC Red Blood Cell Count 3.08 M/uL (3.86-4.86)
[2020-10-06 19:03] LABS: Anisocytosis 1+; Blood Morphology Comment NOTED (NOT SEEN); Macrocytosis SLIGHT; Platelet Estimate ADEQ; White Blood Cell Scan OK (OK)
--- OUTSIDE RECORDS SUMMARY | 2020-10-09 07:11 | XMS REPORT | Clinical Summary ---
:1955 Author Organization [facility] Address [address] [place] [address] Care Team Providers Name Role Phone Pcp, Primary Care Provider Unavailable Allergies No Known Allergies Medications Medication Sig Dispensed Refills Start Date End Date Status letrozole (FEMARA) 2.5 Take 2.5 mg by 0 Active mg tablet mouth daily. Active Problems Problem Noted Date Renal mass 08/21/2019 Social History Tobacco Use Types Packs/Day Years [...] Assigned at Date Recorded Not on file Last Filed Vital Signs Not on file Plan of Treatment Health Maintenance Due Date Last Done Comments BREAST CANCER SCREENING 1955 COLON CANCER SCREENING COLONOSCOPY 1955 PNEUMOCOCCAL 65+ YRS (1 of 1 - [id number] PCV13) 2018 MEDICARE ANNUAL WELLNESS (YEAR 2 or FIRST YEAR if no 11/18/2019 IPPE) INFLUENZA VACCINE (#1) 2020 Results Not on fileafter 10/09/2019 Insurance Payer Benefit Plan / Subscriber ID Effective Dates Phone Addre ss Type Group [facility] [id number] 2018-Present MEDICARE MGD CARE HMO [phone] [facility] (Home) [place] [id number] Advance Directives For more information, please contact: [phone] Code Status Date Activated Date Inactivated Comments Full Code 08/21/2019 8:31 PM 08/23/2019 8:10 PM This code status was determined by: Patient
--- OUTSIDE RECORDS SUMMARY | 2020-10-09 07:11 | XMS REPORT | Continuity of Care Document ---
:1955 Author Organization [facility] t Address [address] [place] [address] Care Team Providers Name Role Phone Pcp MD Primary Care Physician Unavailable Jaison Ratliff MD Attending Clinician JAISON RATLIFF Attending Clinician Unavailable JAISON RATLIFF Admitting Clinician Unavailable Problems Condition Condition Condition Status Onset Resolution Last Treating Co mments Source Name Details Category Date Date Treatment Clinician Date Renal mass Renal mass Disease Active 2018-[address] [facility] Allergies, Adverse Reactions, Alerts This patient has no known allergies or adverse reactions. Social History Social Habit Start Date Stop Date Quantity Comments Source History of tobacco [facility] sm[facility] History [facility] Std Drinks [facility] Binge Medical [facility] ter Sex Assigned At [facility] Cigarettes smoked 2019-08-22 2019-08-[address] [facility] - current (pack per 00:00:00 00:00:00 Medical Center day) - Reported Cigarette 2019-08-22 2019-08-[address] [facility] - pack-years 00:00:00 00:00:00 [facility] Tobacco use and 2019-08-22 2019-08-22 Never used [facility] kes - exposure 00:00:00 00:00:00 [facility] Alcohol intake 2019-08-22 2019-08-22 Current [facility] - 00:00:00 00:00:00 non-drinker of Medical Ce nter alcohol (finding) History SDOH 2019-08-19 2019-08-[address] [facility] - Alcohol Frequency 00:00:00 00:00:00 Medical Center Smoking Status Start Date Stop Date Source Former smoker 2019-08-22 00:00:00 2019-08-22 00:00:[address] [facility] Medications Ordered Filled Start Stop Current Ordering Indication Dosage Frequency Signature Comments Components Source Medication Medication Date Date Medication? Clinician (SIG) Name Name letrozole 2018-09 Yes 2.5mg QD Take 2.[address] ([facility]) 2[facility]06 [facility] - 2.5 mg 18:10: mouth Medical tablet 44 daily. Center Procedures This patient has no known procedures. Plan of Care Planned Activity Planned Date Details Comments Source Future Scheduled 2020-05-19 INFLUENZA VACCINE (#1) [facility] 00:[facility]00 [code = INFLUENZA Medical Ce nter VACCINE (#1)] Future Scheduled 2019-11-[address] [facility] - Test 00:00:00 WELLNESS (YEAR 2 or Medical Center FIRST YEAR if no IPPE) [code = MEDICARE ANNUAL WELLNESS (YEAR 2 or FIRST YEAR if no IPPE)] Future Scheduled 2018 PNEUMOCOCCAL 65+ YRS [facility] - Test 00:00:00 (1 of 1 - Medical Center [id number] PCV13) [code = PNEUMOCOCCAL 65+ YRS (1 of 1 - [id number] PCV13)] Future Scheduled [address] [facility] - Test 00:00:00 malignant neoplasm of [facility] breast (procedure) [code = 615069138] Future Scheduled [address] [facility] - Test 00:00:00 malignant neoplasm of [facility] colon (procedure) [code = 811276592] Encounters Start End Encounter Admission Attending Care Care Encounter Source Date/Time Date/Time Type Type Clinicians Facility Department ID 2020-03-03 2020-03-03 Office ÁNGEL Ratliff [id number] 20 11:30:59 12:23:35 Visit Alfredito Blackwood AMBULATOR [id number] Y [id number] 2019-08-01 2019-08-01 [address] [facility] [address] [facility] 08:26:00 08:26:00 Results Test Description Test Time Test Comments Results Result Sourc e Comments TISSUE EXAM 2019-08-31 Surgical Pathology Report 14:46:00 Case: [id number] Authorizing Provider: Alfredito Ratliff MD Collected: 08/21/2019 1712 Ordering Location: [facility] Received: 08/22/2019 1041 SERVICES Pathologist: Khris [...] CARCINOMA (0/11) Signing Pathologist Direct Phone Line: [phone] y signed by Khris Morales MD on 08/31/2019 [...] Pathologic Findings in Nonneoplastic Kidney: None identified [id number] X 2, 44815, 47164 X 2Left renal mass A. Kidney, left. [...] nodes are not present in the hilum. Manager Technical Services sections are submitted.Ink code: Blue-outer surface of kidneySection code:A1, ureter and vascular margins, en faceA2-A3, mass to kidney capsule and perinephric fatA4, mass to veinA5-A7, mass to renal sinusA8, mass to hilumA9, contact representative of mass with scarred area, mid lobeA10, mass to uninvolved parenchyma, mid [id number]-U67, uninvolved parenchyma B. Received fresh labeled with [...] evaluated Immunohistochemistry technical testing was performed at [facility], Pathology Laboratory where it was developed and [...] 2019-08-23 13:13:00 Test Item Value Reference Range Interpretation Comme nts HEMOGLOBIN (BEAKER) (test code = 410) 10.6 GM/DL 11.2-15.7 L HEMATOCRIT (BEAKER) (test code = 411) 33.8 % 34.1-44.9 L BASIC METABOLIC [id number] 07:54:00 Test Item Value Reference Range Interpretation [...] APPLICABLE FOR DIALYSIS PATIEN TS. HEMOGLOBIN AND [id number] 07:37:00 Test Item Value Reference Range Interpretation Comments HEMOGLOBIN (BEAKER) (test code = 10.6 GM/DL 11.2-15.7 L 410) HEMATOCRIT (BEAKER) (test code = 33.5 % 34.1-44.9 L 411) BASIC METABOLIC [id number] 05:55:00 Test Item Value Reference Range Interpretation [...] APPLICABLE FOR DIALYSIS PATIEN TS. HEMOGLOBIN AND [id number] 05:36:00 Test Item Value Reference Range Interpretation Comments HEMOGLOBIN (BEAKER) (test code = 11.6 GM/DL 11.2-15.7 410) HEMATOCRIT (BEAKER) (test code = 36.6 % 34.1-44.9 411) BASIC METABOLIC [id number] 19:19:00 Test Item Value Reference Range Interpretation [...] APPLICABLE FOR DIALYSIS PATIEN TS. HEMOGLOBIN AND [id number] 18:50:00 Test Item Value Reference Range Interpretation Comments HEMOGLOBIN (BEAKER) (test code = 12.8 GM/DL 11.2-15.7 410) HEMATOCRIT (BEAKER) (test code = 39.8 % 34.1-44.9 411) URINE [id number] 09:25:00 Test Item Value Reference Range Interpretation Comments CULTURE (BEAKER) (test 80-89,000 col/mL skin code = 1095) david PROTHROMBIN [id number] 17:15:00 Test Item Value Reference Range Interpretation [...] INR is2.5-3.5 for patients wiht mechanical heart valves.[id number] 17:15:00 Test Item Value Reference Range Interpretation Comments PARTIAL THROMBOPLASTIN TIME 27.7 seconds 22.5-36.0 (BEAKER) (test code = 760) BASIC METABOLIC [id number] 17:04:00 Test Item Value Reference Range Interpretation [...] S NOT APPLICABLE FOR DIALYSIS PATIEN TS. URINALYSIS W/ [id number] 16:35:00 Test Item Value Reference Range Interpretation [...] code = 518) SOURCE(BEAKER) (test code = 7213) CBC W/PLT COUNT & AUTO [id number] 16:33:00 Test Item Value Reference Range Interpretation [...] code = 2801) BREAST ULTRASOUND CORE BIOPSY [id number] 16:30:01- BREAST ULTRASOUND CORE BIOPSY RIGHTULTRASOUND GUIDED [...] to exam dated 05/21/2019 ultrasound - [facility]-. An ultrasound guided biopsy using [...] 06/26/2019 08:21:12Imaging Technologist: Charlee Raygoza , [facility]-RGDIAG MAMM RIGHT CAD [id number] 09:46:33 - DIAG MAMM RIGHT CAD DIGITALUNILATERAL RIGHT DIGITAL DIAGNOSTIC MAMMOGRAM WITH CAD - RIGHT BREAST POST-PROCEDURE IMAGING FOR MARKER PLACEMENT: 06/19/2019CLINICAL: Post clip placement. Current mammographic images were evaluated by either a [employer] M-Vu or an iCAD version 7.2 computer aided detection system. Comparison is made to exams dated 06/19/2019 ultrasound, 06/19/2019 ultrasound biopsy, 06/19/2019 ultrasound biopsy, 05/21/2019 ultrasound, and 05/21/2019 mammogram - [facility]-. There are scattered fibroglandular tissues [...] right axilla. Sandra Jimenez M.D. cc/:06/19/2019 09:46:33 Salesperson Corsets: Dionne ESCALANTE, [facility]-RGMammogram BI-RADS: Post-procedure mammogram for marker placementBREAST ULTRASOUND [id number] 15:44:10 - DIAG MAMM BILATERAL SUSAN CAD DIGITALBILATERAL DIGITAL DIAGNOSTIC MAMMOGRAM 3D/2D WITH CAD: 9CLINICAL: Palpable Lump and nipple abnormality right breast. Digital breast tomosynthesis was performed in addition to routine CC and MLO views. Current mammographic images were evaluated by either a [employer] M-Vu or an CareFamilyD version 7.2 computer aided detection system. No [...] - 05/22/2019 08:27:22Imaging Technologist: Kayden ESCALANTE, [facility]-letter sent: BIRADS 4/5 Biopsy Mammogram BI-RADS: 0 Indeterminate Ultrasound BI-RADS: 5 Highly suggestive of malignancyDIAG MAMM BILATERAL SUSAN CAD [id number] 15:44:10 - DIAG MAMM BILATERAL SUSAN CAD DIGITALBILATERAL DIGITAL DIAGNOSTIC MAMMOGRAM 3D/2D WITH CAD: 05/21/2019CLINICAL: Palpable Lump and nipple abnormality right breast. Digital breast tomosynthesis was performed in addition to routine CC and MLO views. Current mammographic images were evaluated by either a [employer] M-Vu or an iCAD version 7.2 computer [...] - 05/22/2019 08:27:22Imaging Technologist: Kayden ESCALANTE, [facility]-RGletter sent: BIRADS 4/5 Biopsy Mammogram BI-RADS: 0 Indeterminate Ultrasound BI-RADS: 5 Highly suggestive of malignancy
[2020-10-09] MEDS ORDERED: CEFAZOLIN/SWI 1gm 1 GM/10 ML SYR ONE (07:54)
[2020-10-09] MEDS ORDERED: Ringers Lactate 1,000 ML IV ONE (07:54)
[2020-10-09] MEDS ORDERED: propofoL 200 MG/20 ML VIAL IV ONE (08:53)
[2020-10-09] MEDS ORDERED: MIDAZOLAM HCL 2 MG/2 ML INJ ONE (08:53)
[2020-10-09] MEDS ORDERED: LIDOCAINE 2% MPF 5 ML VIAL ONE (08:53)
[2020-10-09] MEDS ORDERED: LIDOCAINE 1% MPF 30 ML VIAL ONE (08:56)
[2020-10-09] MEDS ORDERED: FENTANYL CITR 100 MCG/2 ML ONE (09:21)
[2020-10-09] MEDS ORDERED: Mastisol Adhesive Liq ONE (09:35)
[2020-10-09] MEDS ORDERED: KETOROLAC 30 MG/ML INJ ONE (09:40)
--- NOTE | 2020-10-09 09:58 | OP ---
Date of Procedure: 10/09/2020 Surgeon: Beto Birch MD Preoperative Diagnosis: Right breast cancer. Postoperative Diagnosis: Right breast cancer. Procedure: Removal of left chest Port-A-Cath. Estimated Blood Loss: Minimal. Specimen: Left chest Port-A-Cath. Findings: As above. Anesthesia: MAC. Complications: None. Disposition: The patient tolerated the procedure in stable condition, taken to taken to Recovery in good general condition. Description Of Procedure: The patient was brought to the OR and placed in supine position. MAC anes thesia was begun. The patient was prepped and draped in usual sterile fashion. Lidocaine 1% infiltr ated locally and a 15 blade was used to make a 3 cm incision with a Port-A-Cath. Subcutaneous tissue was divided. Port-A-Cath was identified and freed from the surrounding tissue with sharp and blunt dissection and removed and sent to Pathology for identification. Wound was irrigated. Bleeding was controlled with cautery. 3-0 chromic used to reapproximate the subcutaneous tissue and close the ski n. Sterile dressing was applied. The patient was awakened and taken to Recovery in good general con dition. Discharge Note: The patient will go to Day Surgery and home when stable. Disposition: Home. Condition: Stable. Discharge Instructions: Resume home medications and diet. Activity as tolerated. No heavy lifting. Remove outer dressing in 2 days. Shower. Keep wound clean and dry. Followup in my office in 2 we eks, call for appointment. Tylenol No.3 one tablet p.o. q.4 p.r.n. pain. /MODL Voice ID: [id number] Report ID: [id number]
[2020-10-09 10:15] VITALS: BP 101/54; TEMP 97.1; O2SAT 100
== END 2020-10-09 10:05 | disposition home or self-care (01) ==
LOC: OR 07:06
PROVIDERS: ATTEND Surgery
PROC: 0JPT0WZ Removal of Totally Implantable Vascular Access Device from Trunk Subcutaneous Tissue and Fascia, Open Approach (ICD-10-PCS; principal; 2020-10-09 08:45)
DX: Z45.2 Encounter for adjustment and management of vascular access device (principal); C50.111 Malignant neoplasm of central portion of right female breast; Z20.822 Contact with and (suspected) exposure to COVID-19
CPT/HCPCS: 85025; 36415; 88300; 36590; U0002; J2704; J2250; J3010; J0690; J7120